=== PATIENT | male | born 1950 | race Caucasian/White ===

== ENCOUNTER 2016-07-08 10:08 | Inpatient (IN) | payer MEDICARE, OTHER ==
[~2016-07-08] VITALS: Ht 167.6 cm; Wt 88.6 kg
[~2016-07-08 10:08] MED LIST: /MOXI40TA OR; ALBU17IN2 INH; AMBIEN PO; ASTHMANEX INH; LEVITRA PO; LISIPOW PO; METFORMIN PO; OMEPPOW18 PO; PRED10TA2 OR; PRED20TA OR; SIMVASTIN PO; TERAZOSIN PO; VENTAER INH; VICODINES TAB OR; [UNRECOGNIZED DRUG - OTHER] INH; [UNRECOGNIZED DRUG - OTHER] PO
[2016-07-08] MEDS ORDERED: VITA100067 PO (10:47)
[2016-07-08] MEDS ORDERED: SPIR1CAP INH (10:47)
[2016-07-08] MEDS ORDERED: BRIM1OPD OU (10:47)
[2016-07-08] MEDS ORDERED: AMBI10TA PO (10:47)
[2016-07-08] MEDS ORDERED: ASPI325T PO (10:47)
[2016-07-08] MEDS ORDERED: GLIP10TA6 PO (10:47)
[2016-07-08] MEDS ORDERED: MOME50SP2 (10:47)
[2016-07-08] MEDS ORDERED: HYDR25TAB PO (10:47)
[2016-07-08] MEDS ORDERED: BUDE180INH INH (10:47)
[2016-07-08] MEDS ORDERED: GASTROGRAFIN SOLUTION 30ML (Q9963) As Ordered ONE (12:18)
--- NOTE | 2016-07-08 12:33 | REP ---
Chest two views HISTORY: Abdominal pain Comparison: 05/21/2010 The lungs are clear. The heart is normal in size. The pulmonary vasculature is normal in appearance. The bony structure is intact. IMPRESSION: No acute disease. Signed by Chester Sanders MD 07/08/2016 12:25 P
[2016-07-08 12:35] LABS: BASO % 0.3 % (0.0-1.0); EOS # 0.1 K/mm3 (0.0-0.50); EOS % 1.4 % (0.0-3.0); LARGE UNSTAINED CELL # 0.1 K/mm3 (0.0-0.4); LARGE UNSTAINED CELL % 0.7 % (0.0-4.0); LYMPH # 1.1 K/mm3 (1.5-4.5); LYMPH % 10.2 % (24.0-44.0); MEAN CORPUSCULAR HEMOGLOBIN 31.5 pg (27.0-33.0); MEAN CORPUSCULAR HGB CONC 33.9 g/dl (32.0-36.5); MEAN CORPUSCULAR VOLUME 92.9 fl (80.0-96.0); MONO # 0.5 K/mm3 (0.0-0.8); MONO % 4.9 % (0.0-5.0); NEUTROPHILS # 8.4 K/mm3 (1.8-7.7); NEUTROPHILS % 82.5 % (36.0-66.0); PLATELET COUNT, AUTOMATED 285 k/mm3 (150-450); RED CELL DISTRIBUTION WIDTH 12.6 % (11.5-14.5); WHITE BLOOD COUNT 10.2 K/mm3 (4.0-10.0)
[2016-07-08 12:55] LABS: ALBUMIN 3.7 GM/DL (3.2-5.2); ALBUMIN/GLOBULIN RATIO 0.93 (1.00-1.93); ALKALINE PHOSPHATASE 79 U/L (45-117); ALT/SGPT 19 U/L (12-78); AMYLASE 22 U/L (25-115); ANION GAP 8 MEQ/L (8-16); AST/SGOT 8 U/L (15-37); BILIRUBIN,DIRECT < 0.1 MG/DL (0.0-0.2); BILIRUBIN,TOTAL 0.4 MG/DL (0.2-1.0); BLOOD UREA NITROGEN 14 MG/DL (7-18); CALCIUM LEVEL 9.2 MG/DL (8.8-10.2); CARBON DIOXIDE LEVEL 27 MEQ/L (21-32); CHLORIDE LEVEL 104 MEQ/L (98-107); CREATININE FOR GFR 0.93 MG/DL (0.70-1.30); GLOMERULAR FILTRATION RATE > 60.0 (>49); GLUCOSE, FASTING 145 MG/DL (80-110); POTASSIUM SERUM 4.1 MEQ/L (3.5-5.1); SODIUM LEVEL 139 MEQ/L (136-145); TOTAL PROTEIN 7.7 GM/DL (6.4-8.2)
[2016-07-08] MEDS ORDERED: ISOVUE-370 76% 100ML VIAL (Q9967) As Ordered ONE (13:50)
--- NOTE | 2016-07-08 14:44 | REP ---
CT ABDOMEN AND PELVIS WITH CONTRAST: TECHNIQUE: Axial contrast enhanced images from the lung bases to the pubic symphysis using 100 mL Isovue 370 intravenous contrast material with multiplanar reformations. COMPARISON: 12/08/2010 The visualized lung bases demonstrate chronic fibrotic changes. The liver, spleen, adrenals, pancreas and kidneys appear unremarkable. There are mild to moderate atherosclerotic calcifications of the abdominal aorta without aneurysm. There is no adenopathy. There is no free air. There is a long segment of apparent thickening of the sigmoid colon, extending for a length of about 7 cm. Surrounding streaky densities are seen in the pericolonic fat and there is mild free fluid in the pelvis. Urinary bladder is not well distended and not well evaluated. IMPRESSION: Segmental thickening of the sigmoid colon extending for a length of about 7 cm with surrounding streaky densities in the pericolonic fat. There is also mild free fluid in the pelvis. There is dilatation of the more proximal small and large bowel. This appears to represent either neoplastic or inflammatory pathology, causing partial bowel obstruction at this point. No free air. Signed by Ashok Jackson MD 07/09/2016 07:06 P
[2016-07-08] MEDS ORDERED: LISI40TAB PO (15:08)
[2016-07-08] MEDS ORDERED: METF10004 PO (15:08)
[2016-07-08] MEDS ORDERED: SYMB16INH INH (15:08)
[2016-07-08] MEDS ORDERED: OMEP20CA3 PO (15:08)
[2016-07-08] MEDS ORDERED: TERA5CA PO (15:08)
[2016-07-08] MEDS ORDERED: ZOCO80TA PO (15:08)
[2016-07-08] MEDS ORDERED: ARTI99.0 OU (15:08)
[2016-07-08] MEDS ORDERED: ALBU17IN INH (15:08)
[2016-07-08] MEDS ORDERED: KETOROLAC 30 MG/ML VIAL (J1885) IV ONE (15:30)
[2016-07-08] MEDS ORDERED: ALBUTEROL 90 MCG/ACT 8GM HFA INHALER INH PRN (16:00)
[2016-07-08] MEDS ORDERED: GLUCAGON FOR INJ 1 MG VIAL (J1610) SC PRN (16:00)
[2016-07-08] MEDS ORDERED: ACETAMINOPHEN TAB 650MG DOSE (2X325MG) PO PRN (16:00)
[2016-07-08] MEDS ORDERED: GLUCOSE 4 GM CHEW TABLET PO PRN (16:00)
[2016-07-08] MEDS ORDERED: ONDANSETRON 4MG/2ML VIAL (J2405) IV PRN (16:00)
[2016-07-08] MEDS ORDERED: DEXTROSE 50% 50 ML SYRINGE IV PRN (16:00)
[2016-07-08 17:00] VITALS: BP 126/79
[2016-07-08] MEDS: LR 1,000 ML IV SCH (17:11)
[2016-07-08] MEDS: CIPROFLOXACIN 400 MG in APPROPRIATE DILUENT 1 EA IV SCH (17:12)
[2016-07-08] MEDS: HumaLOG INSULIN (NovoLOG) PER UNIT SC SCH (17:12)
[2016-07-08] MEDS: SYMBICORT 160/4.5MCG INHALER 6GM INH SCH (19:42)
[2016-07-08] MEDS ORDERED: GOLYTELY SOLN 4000 ML BTL PO ONE (20:00)
[2016-07-08] MEDS: metroNIDAZOLE 500 MG in APPROPRIATE DILUENT 1 EA IV SCH (20:08)
[2016-07-08] MEDS: POLYVINYL ALCOHOL OPHTH SOLN 15 ML(LIQUITEARS) OU SCH (20:08)
[2016-07-08] MEDS: BRIMONIDINE 0.1% OPHTH SOLN 5 ML OU SCH (20:08)
[2016-07-08 22:00] VITALS: BP 121/77
[2016-07-09] VITALS (7 sets, daily range): BP systolic 122–153; BP diastolic 71–85
[2016-07-09] MEDS: NORCO, ANEXSIA 5/325MG TABLET (HYDROcodone/ACETAMINOPHEN) PO PRN ×3 (00:46→14:05)
[2016-07-09] MEDS: LR 1,000 ML IV SCH ×3 (03:00→12:52)
[2016-07-09] MEDS: metroNIDAZOLE 500 MG in APPROPRIATE DILUENT 1 EA IV SCH ×3 (03:16→19:56)
[2016-07-09] MEDS: CIPROFLOXACIN 400 MG in APPROPRIATE DILUENT 1 EA IV SCH ×2 (05:28→18:10)
[2016-07-09 06:29] LABS: ANION GAP 6 MEQ/L (8-16); BLOOD UREA NITROGEN 12 MG/DL (7-18); CALCIUM LEVEL 8.5 MG/DL (8.8-10.2); CARBON DIOXIDE LEVEL 26 MEQ/L (21-32); CHLORIDE LEVEL 105 MEQ/L (98-107); CREATININE FOR GFR 0.85 MG/DL (0.70-1.30); GLOMERULAR FILTRATION RATE > 60.0 (>49); GLUCOSE, FASTING 148 MG/DL (80-110); SODIUM LEVEL 137 MEQ/L (136-145)
[2016-07-09 06:40] LABS: ADD MANUAL DIFFER YES; MEAN CORPUSCULAR HGB CONC 33.6 g/dl (32.0-36.5); MEAN CORPUSCULAR VOLUME 92.2 fl (80.0-96.0); PLATELET COUNT, AUTOMATED 258 k/mm3 (150-450); RED CELL DISTRIBUTION WIDTH 12.7 % (11.5-14.5); WHITE BLOOD COUNT 13.2 K/mm3 (4.0-10.0)
[2016-07-09] MEDS ORDERED: GOLYTELY SOLN 4000 ML BTL PO ONE (07:00)
[2016-07-09 07:18] LABS: BANDS 2 % (< 11); EOSINOPHILS 1 % (0-5)
[2016-07-09] MEDS: PANTOPRAZOLE 40MG INJ (PROTONIX) (C9113) IV SCH (07:58)
[2016-07-09] MEDS: POLYVINYL ALCOHOL OPHTH SOLN 15 ML(LIQUITEARS) OU SCH ×3 (07:58→19:56)
[2016-07-09] MEDS: ENOXAPARIN 40 MG/0.4 ML SYRINGE (J1650) SC SCH (07:59)
[2016-07-09] MEDS: hydroCHLOROthiazide 25 MG TAB PO SCH (08:00)
[2016-07-09] MEDS: TERAZOSIN 5 MG CAP PO SCH (08:00)
[2016-07-09] MEDS: LISINOPRIL 40 MG TAB PO SCH (08:00)
[2016-07-09] MEDS: HumaLOG INSULIN (NovoLOG) PER UNIT SC SCH ×3 (08:00→17:30)
--- NOTE | 2016-07-09 08:25 | HPEPDOC ---
General Surgery H&P Date of Admission July 08, 2016 at 15:53 History and Physical CHIEF COMPLAINT: Lower abdominal pain HISTORY OF PRESENT ILLNESS: Patient is seen in the emergency room complaining of 1 month history of crampy lower abdominal pain, changes in appearance of his stools, occasional nausea and vomiting and about a 20 pound weight loss since the start of his symptoms. Patient reports crampy lower left-sided abdominal pain worse with eating, worse prior to having bowel movements. This has been going on for 1 month now. He reports his stools are small pencil thin in appearance and he feels he has to strain a lot more to have bowel movements. He denies any noting any bleeding with bowel movements but notes some mucus coating the stools. He denies fevers or chills. He has had multiple previous colonoscopies to last one was in [id number] [place]. He reports history of polyps that were removed. He denies any significant family history for colorectal malignancy or Crohn's disease. Patient reports increased pain with eating also feeling full with small meals with associated weight loss of about 20 pounds as of this started. ALLERGIES: Please see below. HOME MEDICATIONS: Please see below. PAST MEDICAL HISTORY: 1. COPD 2. Coronary artery disease 3. Diabetes 4. Obstructive sleep apnea 5. Insomnia 6. 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 Benign prostatic hypertrophy PAST SURGICAL HISTORY: Traumatic amputation right arm Multiple colonoscopies last one in 2009 Upper endoscopy in 2009 showing Caceres's esophagus PERSONAL/SOCIAL HISTORY: Reports smoking, denies alcohol use, or recreational drug use. REVIEW OF SYSTEMS: GENERAL: Denies fevers, chills. Reports 20 pound weight loss in 1 month HEENT: Denies blurred vision and double vision. Denies ear symptoms. Denies hoarseness. NECK: Denies any neck pain. CARDIOVASCULAR: Denies chest pain and palpitations. MUSCULOSKELETAL: Denies arthralgias, back pain and thrombophlebitis. SKIN: Denies rash. NEUROLOGIC: Denies headache, stroke and transient ischemic attack. PSYCHIATRIC: Denies anxiety and depression. ENDOCRINE: Denies thyroid disease. HEMATOLOGY/ONCOLOGY: Denies any bleeding or clotting disorder. HEART: Denies any chest pains, palpitations, paroxysmal dyspnea, orthopnea. PULMONARY: Reports history of COPD. [facility] his [facility] with resulting improvement of his breathing. Use to require oxygen at night but no longer with the current medications. GASTROINTESTINAL: Denies rectal bleeding, family history of colon cancer, constipation, diarrhea, dysphagia, heartburn and jaundice. GENITOURINARY: Has history of BPH, denies urinary retention, reports nocturia ENDOCRINE: Denies polydipsia, polyphagia, polyuria, heat or cold intolerance. INFECTIOUS: Denies any recent upper respiratory tract infection, UTI, need for use of antibiotics. NUTRITION: Reports anorexia, feeling full a few bites PHYSICAL EXAMINATION: VITAL SIGNS: Please see below. GENERAL APPEARANCE: Patient seen at bedside, appears comfortable. Awake, alert, oriented. HEENT: Normocephalic, atraumatic. [place] palpebral conjunctivae. Anicteric sclerae. Lips moist. CHEST: No chest wall abnormalities. Normal respiratory motion/effort. NECK: Supple. No thyromegaly. No lymphadenopathies. LUNGS: Lung sounds are clear to auscultation bilaterally. No wheezing appreciated. HEART: No chest wall abnormalities. Heart rate and rhythm are regular with no murmurs. ABDOMEN: [Abdomen is obese, soft, slightly rounded. No hepatosplenomegaly. No umbilical or groin herniations, nondistended. No noticeable rebound or guarding. Mild tenderness on palpation over the suprapubic and left lower quadrant area. No appreciable masses on palpation. No fluctuance. SKIN: Warm, moist. EXTREMITIES: Right arm surgically absent from a traumatic injury. Rest of extremities without edema or deformities. NEUROLOGICAL: Awake, alert, oriented. LABORATORY DATA: Please see below. MICROBIOLOGY: Please see below. IMAGING: CT scan of the abdomen and pelvis Segmental thickening of the sigmoid colon extending for a length of about 7 cm with surrounding streaky densities in the pericolonic fat. There is also mild free fluid in the pelvis. There is dilatation of the more proximal small and large bowel. This appears to represent either neoplastic or inflammatory pathology, causing partial bowel obstruction at this point. No free air. IMPRESSION AND PLAN: 1. Abnormal thickening of the wall of the sigmoid colon with resulting abdominal discomfort, may be partial obstruction at the area. Differentials would include inflammatory process versus malignancy. His last colonoscopy was in 2009. We will schedule him for colonoscopy. We will do a bowel prep tonight. Depending on findings of colonoscopy may need further procedures including surgery during this admission. For the meantime we'll start him on Cipro and metronidazole for possible inflammation, infection as a cause of the swelling. He does not show any signs of systemic infection/sepsis. Clinically is reporting some mild obstructive symptoms but still able to tolerate some oral intake and is intermittently passing flatus and is having bowel movements though this is thinned out. 2. Diabetes while nothing by mouth we will continue him on sliding scale pill resume medications soon as he is able to tolerate diet 3. Coronary artery disease Vital Signs Vital Signs Date Time Temp Pulse Resp B/P (MAP) Pulse Ox O2 Delivery O2 Flow Rate FiO2 07/09/16 06:00 96.7 84 18 153/83 (106) 95 Room Air I&Os I&O- Last 24 Hours up to 6 AM 07/09/16 06:00 Intake Total 4180 ml Output Total 1175 ml Balance 3005 ml Laboratory Data Labs 24H Laboratory Tests 2 07/08/16 12:14: White Blood Count 10.2H, Red Blood Count 4.69, Hemoglobin 14.8, Hematocrit 43.6 , Mean Corpuscular Volume 92.9, Mean Corpuscular Hemoglobin 31.5, Mean Corpuscular Hemoglobin Concent 33.9, Red Cell Distribution Width 12.6, Platelet Count 285, Neutrophils (%) (Auto) 82.5H, Lymphocytes (%) (Auto) 10.2L, Monocytes (%) (Auto) 4.9, Eosinophils (%) (Auto) 1.4, Basophils (%) (Auto) 0.3, Neutrophils # (Auto) 8.4H, Lymphocytes # (Auto) 1.1L, Monocytes # (Auto) 0.5, Eosinophils # (Auto) 0.1, Basophils # (Auto) 0.0, Large Unclassified Cells % 0.7 , Large Unclassified Cells # 0.1, Anion Gap 8, Glomerular Filtration Rate > 60.0 , Calcium Level 9.2, Aspartate Amino Transf (AST/SGOT) 8L, Alanine Aminotransferase (ALT/SGPT) 19, Lactate Dehydrogenase 120, Alkaline Phosphatase 79, Total Bilirubin 0.4, Direct Bilirubin < 0.1, Total Protein 7.7, Albumin 3.7 , Albumin/Globulin Ratio 0.93L, Amylase Level 22L, Lipase 101 07/08/16 14:07: Urine Appearance CLEAR, Urine Color YELLOW, Urine pH 5.0, Urine Specific [place] 1.015, Urine Protein NEGATIVE, Urine Glucose (UA) NEGATIVE, Urine Ketones NEGATIVE, Urine Urobilinogen 0.2, Urine Bilirubin NEGATIVE, Urine Leukocyte Esterase NEGATIVE, Urine Blood NEGATIVE, Urine Nitrite NEGATIVE, Urine WBC (Auto) 0, Urine RBC (Auto) 2, Urine Hyaline Casts (Auto) 0, Urine Bacteria (Auto) NEGATIVE, Urine Squamous Epithelial Cells 0, Urine Mucus (Auto) SMALL, Urine Sperm (Auto) 07/08/16 17:01: Bedside Glucose (Misc Panel) 128H 07/08/16 21:13: Bedside Glucose (Misc Panel) 101 07/09/16 06:06: Neutrophils 88H, Band Neutrophils 2, Lymphocytes (Manual) 4L, Monocytes (Manual ) 1, Eosinophils (Manual) 1, Atypical Lymphocytes 4, Platelet Estimate NORMAL, Red Blood Cell Morphology NORMAL, Anion Gap 6L, Glomerular Filtration Rate > 60.0, Blood Urea Nitrogen 12, Creatinine 0.85, Sodium Level 137, Potassium Level 4.0, Chloride Level 105, Carbon Dioxide Level 26, Calcium Level 8.5L CBC/BMP Laboratory Tests 07/08/16 12:14 Red Blood Count 4.69, Mean Corpuscular Volume 92.9, Mean Corpuscular Hemoglobin 31.5, Mean Corpuscular Hemoglobin Concent 33.9, Red Cell Distribution Width 12.6 , Neutrophils (%) (Auto) 82.5 H, Lymphocytes (%) (Auto) 10.2 L, Monocytes (%) ( Auto) 4.9, Eosinophils (%) (Auto) 1.4, Basophils (%) (Auto) 0.3, Neutrophils # ( Auto) 8.4 H, Lymphocytes # (Auto) 1.1 L, Monocytes # (Auto) 0.5, Eosinophils # ( Auto) 0.1, Basophils # (Auto) 0.0 07/09/16 06:06 Red Blood Count 4.33, Mean Corpuscular Volume 92.2, Mean Corpuscular Hemoglobin 31.0, Mean Corpuscular Hemoglobin Concent 33.6, Red Cell Distribution Width 12.7 , Calcium Level 8.5 L Home Medications Scheduled (Mometasone Furoate) 50 Mcg/Act Spr, 220 MCG NA QHS, (Reported) Artificial Tears (Artificial Tears) 1.4 % [place], 1 DROP OU TID, (Reported) Aspirin (Aspirin) 325 Mg Tab, 325 MG PO DAILY, (Reported) Brimonidine Tartrate 0.1% (Alphagan P) 100 Drop/5 Ml Soln, 1 DROP OU TID, ( Reported) Budesonide/Formoterol (Symbicort 160-4.5 Mcg/Act) 60 Puff/Inhaler Aers, 2 PUFF INH BID, (Reported) Glipizide (Glipizide) 10 Mg Tab, 10 MG PO BID, (Reported) Hydrochlorothiazide (Hydrochlorothiazide) 25 Mg Tab, 25 MG PO DAILY, (Reported) Lisinopril (Lisinopril) 40 Mg Tab, 40 MG PO DAILY, (Reported) Metformin Hydrochloride (Metformin HCl) 1,000 Mg Tab, 1,500 MG PO BID, (Reported ) Omeprazole (Omeprazole) 20 Mg Cap, 20 MG PO BID, (Reported) Simvastatin - High Dose (Zocor) 80 Mg Tab, 80 MG PO DAILY, (Reported) Terazosin HCl (Terazosin HCl) 5 Mg Cap, 5 MG PO DAILY, (Reported) Tiotropium [place] Monohydrate (Spiriva Handihaler) 18 Mcg Cap, 1 INHALATION INH DAILY, (Reported) Vitamin D (Vitamin D) 1,000 Unit Cap, 1,000 UNIT PO DAILY, (Reported) Zolpidem Tartrate (Ambien) 10 Mg Tab, 10 MG PO QHS, (Reported) Scheduled PRN Albuterol Sulfate (Ventolin Hfa) 200 Puff/8 Gm Aers, 2 PUFF INH Q6H PRN for SHORTNESS OF BREATH, (Reported) Allergies Coded Allergies: No Known Drug Allergy (Verified Allergy, Unknown, 05/15/12) Amitriptyline (Unverified Adverse Reaction, Unknown, seizures, 07/08/16) CESAR LUJAN MD Jul 09, 2016 08:25
[2016-07-09] MEDS: TIOTROPIUM INHALER/CAPSULE (SPIRIVA) INH SCH (08:41)
[2016-07-09] MEDS: SYMBICORT 160/4.5MCG INHALER 6GM INH SCH ×2 (08:41→19:53)
[2016-07-09] MEDS: BRIMONIDINE 0.1% OPHTH SOLN 5 ML OU SCH ×3 (08:49→19:56)
[2016-07-09] MEDS ORDERED: MIDAZOLAM INJ 2 MG/2 ML VIAL (J2250) As Ordered ONE (16:33)
[2016-07-09] MEDS ORDERED: fentaNYL 100 MCG/2 ML INJECTION (J3010) As Ordered ONE (16:34)
--- NOTE | 2016-07-09 17:11 | ROOR ---
Patient Name: Andrews Barry Procedure Date: 07/09/2016 4:34 PM Date of : 1950 Age: 66 Room: [facility] Gender: Male Note Status: Finalized Procedure: Colonoscopy Indications: Abdominal pain in the left lower quadrant, Lower abdominal pain, Abnormal CT of the GI tract, Change in bowel habits, Weight loss Providers: Jonathan Mosher MD Referring MD: [facility], [facility], Admin. Requesting Provider: Medicines: Fentanyl 75 micrograms IV, Midazolam 4 mg IV Complications: No immediate complications. Procedure: Pre-Anesthesia Assessment: - Prior to the procedure, a History and Physical was performed, and patient medications and allergies were reviewed. The patient is competent. The risks and benefits of the procedure and the sedation options and risks were discussed with the patient. All questions were answered and informed consent was obtained. Patient identification and proposed procedure were verified by the physician and the nurse in the endoscopy suite. Mental Status Examination: alert and oriented. Airway Examination: normal oropharyngeal airway and neck mobility. Respiratory Examination: clear to auscultation. CV Examination: normal. Prophylactic Antibiotics: The patient does not require prophylactic antibiotics. Prior Anticoagulants: The patient has taken aspirin, last dose was 1 day prior to procedure. ASA Grade Assessment: III - A patient with severe systemic disease. After reviewing the risks and benefits, the patient was deemed in satisfactory condition to undergo the procedure. The anesthesia plan was to use moderate sedation / analgesia (conscious sedation). Immediately prior to administration of medications, the patient was re-assessed for adequacy to receive sedatives. The heart rate, respiratory rate, oxygen saturations, blood pressure, adequacy of pulmonary ventilation, and response to care were monitored throughout the procedure. The physical status of the patient was re-assessed after the procedure. The Colonoscope was introduced through the anus and advanced to the hepatic flexure. The colonoscopy was technically difficult and complex due to a partially obstructing mass, poor bowel prep with stool present and the patient's discomfort during the procedure. The patient tolerated the procedure fairly well. The quality of the bowel preparation was fair. Findings: The perianal and digital rectal examinations were normal. A frond-like/villous and polypoid partially obstructing large mass was found in the recto-sigmoid colon. The mass was partially circumferential (involving one-third of the lumen circumference). The mass measured ten cm in length. [Diameter]. No bleeding was present. This was biopsied with a cold forceps for histology. Estimated blood loss was minimal. A few medium-mouthed diverticula were found in the sigmoid colon and descending colon. There was no evidence of diverticular bleeding. The exam was otherwise without abnormality. No additional abnormalities were found on retroflexion. Impression: - Preparation of the colon was fair. - Rule out malignancy, partially obstructing tumor in the recto-sigmoid colon. Biopsied. - Mild diverticulosis in the sigmoid colon and in the descending colon. There was no evidence of diverticular bleeding. - The examination was otherwise normal. Recommendation: - [facility]. - Await pathology results. Jonathan Mosher MD Jonathan Mosher MD 07/09/2016 5:11:25 PM This report has been signed electronically. Number of Addenda: 0 Note Initiated On: 07/09/2016 4:34 PM Estimated Blood Loss: Estimated blood loss was minimal.
[2016-07-10] MEDS: NORCO, ANEXSIA 5/325MG TABLET (HYDROcodone/ACETAMINOPHEN) PO PRN ×5 (00:33→20:39)
[2016-07-10] MEDS: LR 1,000 ML IV SCH ×3 (00:33→17:26)
[2016-07-10] MEDS: metroNIDAZOLE 500 MG in APPROPRIATE DILUENT 1 EA IV SCH ×3 (03:59→20:39)
[2016-07-10] MEDS: CIPROFLOXACIN 400 MG in APPROPRIATE DILUENT 1 EA IV SCH ×2 (05:13→17:25)
[2016-07-10 06:00] VITALS: BP 114/66
[2016-07-10] MEDS: TIOTROPIUM INHALER/CAPSULE (SPIRIVA) INH SCH (07:20)
[2016-07-10] MEDS: SYMBICORT 160/4.5MCG INHALER 6GM INH SCH ×2 (07:20→19:51)
[2016-07-10] MEDS: PANTOPRAZOLE 40MG INJ (PROTONIX) (C9113) IV SCH (08:09)
[2016-07-10] MEDS: hydroCHLOROthiazide 25 MG TAB PO SCH (08:10)
[2016-07-10] MEDS: ENOXAPARIN 40 MG/0.4 ML SYRINGE (J1650) SC SCH (08:10)
[2016-07-10] MEDS: TERAZOSIN 5 MG CAP PO SCH (08:10)
[2016-07-10] MEDS: LISINOPRIL 40 MG TAB PO SCH (08:10)
[2016-07-10] MEDS: HumaLOG INSULIN (NovoLOG) PER UNIT SC SCH ×3 (08:11→17:34)
[2016-07-10] MEDS: BRIMONIDINE 0.1% OPHTH SOLN 5 ML OU SCH ×3 (08:12→20:40)
[2016-07-10] MEDS: POLYVINYL ALCOHOL OPHTH SOLN 15 ML(LIQUITEARS) OU SCH ×3 (08:12→20:40)
[2016-07-10 14:00] VITALS: BP 124/70
--- NOTE | 2016-07-10 14:14 | IPNPDOC ---
Subjective General Date/Time Seen The patient was seen on 07/10/16 at 14:03. Subject Chief Complaint/History The patient is a 66-year-old male admitted with a reason for visit of Sigmoid Thickening. Colonoscopy reveals partially obstructing large polypoid mass. Biopsy results pending. Patient reports abdominal discomfort, cramping as well as nausea. Not passing flatus since colonoscopy Current Medications Current Medications Current Medications Acetaminophen (Tylenol Tab) 650 mg Q4HP PRN PO MILD PAIN or TEMP > 101 Last administered on 07/09/16 18:10; Start 07/08/16 at 16:00; Stop 08/07/16 at 15:59 Acetaminophen/ Hydrocodone Bitart (Ber[place], Anexsia 5/325) 1 tab Q4HP PRN PO MODERATE PAIN (PS 5-7) Last administered on 07/09/16 00:46; Start 07/08/16 at 16 :00; Stop 07/15/16 at 15:59 Acetaminophen/ Hydrocodone Bitart (Berne, Anexsia 5/325) 2 tab Q6HP PRN PO SEVERE PAIN (PS 8-10) Last administered on 07/10/16 08:11; Start 07/08/16 at 16: 00; Stop 07/15/16 at 15:59 Albuterol Sulfate (Proventil, Ventolin Hfa) 2 puff Q6HP PRN INH sob; Start at 16:00; Stop 08/07/16 at 15:59 Artificial Tears ([place] Tears) 1 drop TID OU Last administered on 07/10/16 08:12 ; Start 07/08/16 at 21:00; Stop 08/07/16 at 20:59 Brimonidine Tartrate (Alphagan P 0.1%) 1 drop TID OU Last administered on 08:12; Start 07/08/16 at 21:00; Stop 08/07/16 at 20:59 Budesonide/ Formoterol Fumarate (Symbicort 160/ 4.5mcg) 2 puff BID INH Last administered on 07/10/16 07:20; Start 07/08/16 at 21:00; Stop 08/07/16 at 20:59 Ciprofloxacin 400 mg/IV Miscellaneous Supplies 200 ml @ 200 mls/hr Q12H IV Last administered on 07/10/16 05:13; Start 07/08/16 at 18:00; Stop 07/15/16 at 17 :59 Dextrose (Dextrose 50%) 25 ml ASDIRECTED PRN IV SEE LABEL COMMENTS; Start 07/08 at 16:00; Stop 08/07/16 at 15:59 Enoxaparin Sodium (Lovenox) 40 mg DAILY SC Last administered on 07/10/16 08:10 ; Start 07/09/16 at 09:00; Stop 07/14/16 at 08:59 Glucagon (Glucagon) 1 mg ASDIRECTED PRN SC SEE LABEL COMMENTS; Start 07/08/16 at 16:00; Stop 08/07/16 at 15:59 Glucose (Glucose) 16 GM ASDIRECTED PRN PO SEE LABEL COMMENTS; Start 07/08/16 at 16:00; Stop 08/07/16 at 15:59 Home Med (Med Rec Complete!) ASDIRECTED XX ; Start 07/08/16 at 15:15; Stop at 15:15; Status DC Hydrochlorothiazide (Hydrodiuril) 25 mg DAILY PO Last administered on 07/10/16 08:10; Start 07/09/16 at 09:00; Stop 08/08/16 at 08:59 Insulin Human Lispro (HumaLOG INSULIN) SEE PROTOCOL TABLE AC SC Last administered on 07/10/16 12:01; Start 07/08/16 at 17:30; Stop 08/07/16 at 17:29 Lactated Ringer's 1,000 ml @ 125 mls/hr Q8H IV Last administered on 07/10/16 08:18; Start 07/08/16 at 15:53; Stop 08/07/16 at 15:52 Lisinopril (Prinivil) 40 mg DAILY PO Last administered on 07/10/16 08:10; Start 07/09/16 at 09:00; Stop 08/08/16 at 08:59 Metronidazole 500 mg/IV Miscellaneous Supplies 100 ml @ 100 mls/hr Q8H IV Last administered on 07/10/16 12:01; Start 07/08/16 at 20:00; Stop 07/15/16 at 19 :59 Ondansetron HCl (ZOFRAN INJection) 4 mg Q6HP PRN IV NAUSEA OR VOMITING; Start 07/08/16 at 16:00; Stop 08/07/16 at 15:59 Pantoprazole Sodium (Protonix) 40 mg DAILY IV Last administered on 07/10/16 08: 09; Start 07/09/16 at 09:00; Stop 08/08/16 at 08:59 Terazosin HCl (Hytrin) 5 mg DAILY PO Last administered on 07/10/16 08:10; Start 07/09/16 at 09:00; Stop 08/08/16 at 08:59 Tiotropium [place] (Spiriva Handihaler) 1 inhalation DAILY@08 INH Last administered on 07/10/16 07:20; Start 07/09/16 at 08:00; Stop 08/08/16 at 07:59 Allergies Coded Allergies: No Known Drug Allergy (Verified Allergy, Unknown, 05/15/12) Amitriptyline (Unverified Adverse Reaction, Unknown, seizures, 07/08/16) Objective Physical Examination Examination GENERAL APPEARANCE:Patient seen, laying in bed, awake, alert, and oriented. Mildly uncomfortable from abdominal distention. SKIN: [Warm and moist]. HEENT: [Normocephalic, atraumatic. [place] palpebral conjunctiva, anicteric sclerae. Lips and mucosa appear moist]. NECK: [Supple, no thyromegaly. No obvious jugular venous distention]. LUNGS: [Clear to auscultation bilaterally. No wheezing appreciated]. HEART: [No chest wall abnormalities. Regular rate and rhythm with no murmurs appreciated]. ABDOMEN: Abdomen is tensely distended, soft, tympanitic, nontender on palpation. No grimacing with palpation. No rebound tenderness. No masses appreciated]. EXTREMITIES: Right arm surgically absent, no extremity edema Vital Signs Vital Signs Date Time Temp Pulse Resp B/P (MAP) Pulse Ox O2 Delivery O2 Flow Rate FiO2 07/10/16 08:41 20 07/10/16 08:15 Room Air 07/10/16 08:10 141/86 07/10/16 06:00 97.4 84 90 07/09/16 16:54 2 I&Os I&O- Last 24 Hours up to 6 AM 07/10/16 05:59 Intake Total 3675 ml Output Total 1225 ml Balance 2450 ml Laboratory Data Labs 24H Laboratory Tests 2 07/09/16 17:44: Bedside Glucose (Misc Panel) 141H 07/09/16 20:48: Bedside Glucose (Misc Panel) 152H 07/10/16 07:28: Bedside Glucose (Misc Panel) 184H 07/10/16 11:25: Bedside Glucose (Misc Panel) 140H Impression partial sigmoid colon obstruction froma rectosigmoid polypoid mass path pending keep him npo for now I instructed patient to ambulate to hallways If his abdomen continues to be distended, vomiting may need ngt He is tentatively scheduled for lap LAR for wednesday, I asked the hospitalist service to help optimize him for the surgery. Plan / VTE VTE Prophylaxis Ordered?: Yes CESAR LUJAN MD Jul 10, 2016 14:14
--- NOTE | 2016-07-10 14:52 | CR.PDOC ---
[facility] Consultation Consultation CONSULTATION REPORT FOR: Dr Caldera REASON FOR CONSULTATION: Preoperative medical optimization DATE OF VISIT: 07/10/16 ATTENDING: Dr. Cool PCP: [facility]. HPI: 66year oldM with a past medical history significant for COPD, LOUIS, HTN, CAD who was admitted 07/08 for sigmoid thickening. Colonoscopy revealed partially obstructing mass, biopsy pathology pending. No acute medical complaints today. Denies any fevers, chills, weakness, fatigue, Headache, Chest Pain, Shortness of breath, cough, palpitations, abdominal pain, N/V/D or changes in bowel or bladder habits. Hospitalist consultation requested for medical optimization prior to colon resection planned Wednesday. PMHx: COPD LOUIS/CPAP CAD HTN DM BPH hiatal hernia/Sommers's esophagus insomnia depression HLD phantom limb PSHX: EGD 2010 sommers's esophagus Colonoscopy 2009 traumatic loss Rt arm SOCHX: Resides in: [facility] Marital Status: x 35 years Kids: 4- estranged. Employment: retired otr refrigerated cdl truck driver Tobacco use: 2 ppd ETOH: 6 beers/month Illicit Drugs: Denies Advanced directives: denies FAMHX: Mother: suicide Father: gastric Ca Siblings: 1 sister Alive, estranged. 1 brother Ca Children: Alive, unknown-estranged. ROS: As noted in HPI, otherwise 11pt ROS of systems reviewed and remarkable only for current abdominal pain/distention. PE: GEN: 66yoM, appears stated age. Well-nourished, well developed. No acute distress. Alert and oriented x 3. Pleasant, interactive. HEENT: Normocephalic, atraumatic. Pupils are equal, round, and reactive to light. Extraocular movements are intact. No nystagmus appreciated. Sclera are nonicteric. Conjunctiva without injection. Nose midline. Nasal turbinates without bogginess. No facial asymmetry. Moist mucous membranes. Dentition fair. Pharynx pink and moist, no cobblestoning. Neck supple, trachea midline. No lymphadenopathy or thyromegaly appreciated. CHEST: Regular rate and rhythm, +S1, +S2 LUNGS: Clear to auscultation bilaterally. No wheezes, rales, or rhonchi. Breathing appears symmetric and easy. Patient is speaking in full sentences. No accessory muscle use. ABD: Distended, Round, soft, TTP LLQ. +Bowel sounds present. No rebound or guarding. No costovertebral angle tenderness. EXT: Pulses 2+ bilaterally dorsalis pedis and radial. No lower extremity edema appreciated. SKIN: [place], dry, warm. Capillary refill <2sec. No rashes. NEURO: Alert and oriented x 3. Cranial nerves III-XII are intact. No focal deficits appreciated. A&P: 66year oldM with a past medical history significant for COPD, LOUIS, HTN, CAD who was admitted 07/08 for sigmoid thickening. Colonoscopy revealed partially obstructing mass, biopsy pathology pending. 1. Sigmoid thickening/Partially obstructing mass. Pathology pending. Mgmt as per Dr Caldera. IVF/IV Cipro/Flagyl. Colon resection planned as per Dr Caldera. Pt is discussed with Dr Estrada. Will be followed by Dr Cool. 2. Preoperative clearance/medical optimization. Pt lives alone and does ADLs on his own. He does light work on his own, groceries, walk short distance. As per Revised Cardiac risk criteria, Pt would be moderate risk(6.6). Pt appears to be medically optimized for surgical procedure at this time. EKG is requested. Statin (Zocor 80mg) continued. Pt is known to have LOUIS- Pt is requested to use home CPAP. ASA is on hold. 3. CAD. ASA on hold. Cont statin. 4. HTN. HCTZ/Lisinopril. BP controlled. 5. COPD. Symbicort/Albuterol prn. 6. LOUIS/CPAP. Advised pt to uses CPAP from home. 7. DM. SSI. (Metformin/glipizide on hold) 8. BPH. Hytrin. 9. Hiatal hernia/sommers's esophagus. Cont PPI. 10. HLD. Cont Zocor 80 mg daily. 11. Glaucoma. Alphagan eye gtt. 12. Insomnia. Zolpidem on hold. DVT prophylaxis. Lovenox. Thank you for your consultation. We will continue to follow along with you. Vital Signs/I&O Vital Signs Date Time Temp Pulse Resp B/P (MAP) Pulse Ox O2 Delivery O2 Flow Rate FiO2 07/10/16 14:21 20 07/10/16 08:15 Room Air 07/10/16 08:10 141/86 07/10/16 06:00 97.4 84 90 07/09/16 16:54 2 I&O- Last 24 Hours up to 6 AM 07/10/16 05:59 Intake Total 3675 ml Output Total 1225 ml Balance 2450 ml Laboratory Data Labs 24H Laboratory Tests 2 07/09/16 17:44: Bedside Glucose (Misc Panel) 141H 07/09/16 20:48: Bedside Glucose (Misc Panel) 152H 07/10/16 07:28: Bedside Glucose (Misc Panel) 184H 07/10/16 11:25: Bedside Glucose (Misc Panel) 140H Allergies Coded Allergies: No Known Drug Allergy (Verified Allergy, Unknown, 05/15/12) Amitriptyline (Unverified Adverse Reaction, Unknown, seizures, 07/08/16) Home Medications Scheduled (Mometasone Furoate) 50 Mcg/Act Spr, 220 MCG NA QHS, (Reported) Artificial Tears (Artificial Tears) 1.4 % Guera, 1 DROP OU TID, (Reported) Aspirin (Aspirin) 325 Mg Tab, 325 MG PO DAILY, (Reported) Brimonidine Tartrate 0.1% (Alphagan P) 100 Drop/5 Ml Soln, 1 DROP OU TID, ( Reported) Budesonide/Formoterol (Symbicort 160-4.5 Mcg/Act) 60 Puff/Inhaler Aers, 2 PUFF INH BID, (Reported) Glipizide (Glipizide) 10 Mg Tab, 10 MG PO BID, (Reported) Hydrochlorothiazide (Hydrochlorothiazide) 25 Mg Tab, 25 MG PO DAILY, (Reported) Lisinopril (Lisinopril) 40 Mg Tab, 40 MG PO DAILY, (Reported) Metformin Hydrochloride (Metformin HCl) 1,000 Mg Tab, 1,500 MG PO BID, (Reported ) Omeprazole (Omeprazole) 20 Mg Cap, 20 MG PO BID, (Reported) Simvastatin - High Dose (Zocor) 80 Mg Tab, 80 MG PO DAILY, (Reported) Terazosin HCl (Terazosin HCl) 5 Mg Cap, 5 MG PO DAILY, (Reported) Tiotropium [place] Monohydrate (Spiriva Handihaler) 18 Mcg Cap, 1 INHALATION INH DAILY, (Reported) Vitamin D (Vitamin D) 1,000 Unit Cap, 1,000 UNIT PO DAILY, (Reported) Zolpidem Tartrate (Ambien) 10 Mg Tab, 10 MG PO QHS, (Reported) Scheduled PRN Albuterol Sulfate (Ventolin Hfa) 200 Puff/8 Gm Aers, 2 PUFF INH Q6H PRN for SHORTNESS OF BREATH, (Reported) Halina Schuler Jul 10, 2016 14:52
[2016-07-10] MEDS: SIMVASTATIN 40 MG TAB PO SCH (17:30)
[2016-07-10 22:00] VITALS: BP 124/80
[2016-07-11 02:00] VITALS: BP 145/84
[2016-07-11] MEDS: LR 1,000 ML IV SCH ×2 (02:11→08:23)
[2016-07-11] MEDS: NORCO, ANEXSIA 5/325MG TABLET (HYDROcodone/ACETAMINOPHEN) PO PRN ×4 (02:12→22:53)
[2016-07-11] MEDS: metroNIDAZOLE 500 MG in APPROPRIATE DILUENT 1 EA IV SCH ×3 (04:42→20:30)
[2016-07-11 06:00] VITALS: BP 127/79
[2016-07-11] MEDS: CIPROFLOXACIN 400 MG in APPROPRIATE DILUENT 1 EA IV SCH ×2 (06:05→17:45)
[2016-07-11] MEDS: TIOTROPIUM INHALER/CAPSULE (SPIRIVA) INH SCH (07:28)
[2016-07-11] MEDS: SYMBICORT 160/4.5MCG INHALER 6GM INH SCH ×2 (07:28→20:26)
[2016-07-11] MEDS: HumaLOG INSULIN (NovoLOG) PER UNIT SC SCH ×4 (08:18→23:43)
[2016-07-11] MEDS: POLYVINYL ALCOHOL OPHTH SOLN 15 ML(LIQUITEARS) OU SCH ×3 (09:43→20:31)
[2016-07-11] MEDS: PANTOPRAZOLE 40MG INJ (PROTONIX) (C9113) IV SCH (09:44)
[2016-07-11] MEDS: SIMVASTATIN 40 MG TAB PO SCH (09:44)
[2016-07-11] MEDS: LISINOPRIL 40 MG TAB PO SCH (09:44)
[2016-07-11] MEDS: TERAZOSIN 5 MG CAP PO SCH (09:44)
[2016-07-11] MEDS: ENOXAPARIN 40 MG/0.4 ML SYRINGE (J1650) SC SCH (09:45)
[2016-07-11] MEDS: BRIMONIDINE 0.1% OPHTH SOLN 5 ML OU SCH ×3 (09:45→20:31)
--- NOTE | 2016-07-11 12:30 | IPNPDOC ---
Text Note Date of Service The patient was seen on 07/11/16. NOTE Subjective: No acute changes overnight. Objective: Vitals: (see below) General: No acute distress, laying comfortably in bed. HEENT: Moist mucous membranes. NG tube in place on intermittent suction Neck: No JVD or lymphadenopathy Cardiac: RRR, No murmurs Pulm: Clear to auscultation b/l. No wheezing, rhonchi Abd: Mildly tender. Distended. No rebound/guarding/rigidity. + BS Ext: No edema or cyanosis Labs (see below) Images: CT abd/pelvis 07/08/16 IMPRESSION: Segmental thickening of the sigmoid colon extending for a length of about 7 cm with surrounding streaky densities in the pericolonic fat. There is also mild free fluid in the pelvis. There is dilatation of the more proximal small and large bowel. This appears to represent either neoplastic or inflammatory pathology, causing partial bowel obstruction at this point. No free air. Assessment/Plan 1. Sigmoid thickening, paritally obstructing mas - pathology pending. Management per surg. NGT in place. Surgery planned for Wednesday - Pt has LOUIS on CPAP, COPD, stable. Revised Cardiac Risk criteria - Mod risk 6.6%. Will continue to medically optimize. 2. ??CAD - Pt denies ever having a cardiac cath. ASA was held. On statin 3. HTN controlled. Cont lisinopril. D/c HCTZ. 4. LOUIS on CPAP 5. DM - PO agents on hold. SSI 6. BPH - on hytrin 7. Hiatal hernia/sommers esophagus - on PPI. 8. HLD on statin 9. Glaucoma - cont eye drops DVT prophy: Lovenox VS,Fishbone, I+O VS, Fishbone, I+O Vital Signs Date Time Temp Pulse Resp B/P (MAP) Pulse Ox O2 Delivery O2 Flow Rate FiO2 07/11/16 09:44 132/82 07/11/16 09:00 Room Air 07/11/16 08:53 18 96 07/11/16 06:00 98.0 77 07/09/16 16:54 2 I&O- Last 24 Hours up to 6 AM 07/11/16 06:00 Intake Total 2975 ml Output Total 2875 ml Balance 100 ml JOSE DAWSON MD Jul 11, 2016 12:30
[2016-07-11 14:00] VITALS: BP 143/87
--- NOTE | 2016-07-11 14:57 | REP ---
ABDOMEN, FLAT PLATE KUB, TWO VIEWS: HISTORY: Colon obstruction. COMPARISON: CT 07/08/2016. There are multiple dilated loops of small intestine. There is dilatation of the colon. No air is seen in the distal sigmoid colon and rectum. There are no air-fluid levels. There is no pneumoperitoneum. IMPRESSION: Findings consistent with distal colon obstruction. Repeat examination is recommended for further evaluation. Signed by Chester Sanders MD 07/11/2016 02:58 P
[2016-07-11] MEDS ORDERED: FAT EMULSION IV 20% 500 ML IV SCH (18:00)
[2016-07-11] MEDS: AMINO AC/ELECTROLYTE/DEX/CALC 1,000 ML IV SCH (18:47)
[2016-07-11 19:38] LABS: ALKALINE PHOSPHATASE 63 U/L (45-117); ALT/SGPT 27 U/L (12-78); ANION GAP 9 MEQ/L (8-16); AST/SGOT 25 U/L (15-37); BILIRUBIN,TOTAL 0.4 MG/DL (0.2-1.0); CALCIUM LEVEL 8.4 MG/DL (8.8-10.2); CARBON DIOXIDE LEVEL 26 MEQ/L (21-32); CHLORIDE LEVEL 102 MEQ/L (98-107); GLUCOSE, FASTING 137 MG/DL (80-110); POTASSIUM SERUM 3.7 MEQ/L (3.5-5.1); SODIUM LEVEL 137 MEQ/L (136-145)
[2016-07-11 20:00] LABS: BLOOD UREA NITROGEN 5 MG/DL (7-18); CREATININE FOR GFR 0.77 MG/DL (0.70-1.30); GLOMERULAR FILTRATION RATE > 60.0 (>49)
[2016-07-11 22:00] VITALS: BP 137/84
[2016-07-12] MEDS: metroNIDAZOLE 500 MG in APPROPRIATE DILUENT 1 EA IV SCH ×3 (04:37→20:00)
[2016-07-12] MEDS: CIPROFLOXACIN 400 MG in APPROPRIATE DILUENT 1 EA IV SCH ×2 (05:52→18:19)
[2016-07-12] MEDS: NORCO, ANEXSIA 5/325MG TABLET (HYDROcodone/ACETAMINOPHEN) PO PRN ×4 (05:52→22:59)
[2016-07-12 06:00] VITALS: BP 139/82
[2016-07-12 06:02] LABS: BASO % 0.3 % (0.0-1.0); EOS # 0.1 K/mm3 (0.0-0.50); EOS % 1.5 % (0.0-3.0); LARGE UNSTAINED CELL # 0.1 K/mm3 (0.0-0.4); LARGE UNSTAINED CELL % 0.9 % (0.0-4.0); LYMPH # 0.7 K/mm3 (1.5-4.5); LYMPH % 7.5 % (24.0-44.0); MEAN CORPUSCULAR HEMOGLOBIN 30.9 pg (27.0-33.0); MEAN CORPUSCULAR HGB CONC 33.6 g/dl (32.0-36.5); MONO # 0.5 K/mm3 (0.0-0.8); MONO % 5.8 % (0.0-5.0); NEUTROPHILS # 6.8 K/mm3 (1.8-7.7); PLATELET COUNT, AUTOMATED 266 k/mm3 (150-450); RED CELL DISTRIBUTION WIDTH 12.8 % (11.5-14.5); WHITE BLOOD COUNT 8.1 K/mm3 (4.0-10.0)
[2016-07-12 06:21] LABS: ALBUMIN 3.1 GM/DL (3.2-5.2); ALBUMIN/GLOBULIN RATIO 0.84 (1.00-1.93); ALKALINE PHOSPHATASE 62 U/L (45-117); ALT/SGPT 38 U/L (12-78); ANION GAP 10 MEQ/L (8-16); AST/SGOT 35 U/L (15-37); BILIRUBIN,TOTAL 0.4 MG/DL (0.2-1.0); BLOOD UREA NITROGEN 7 MG/DL (7-18); CALCIUM LEVEL 8.9 MG/DL (8.8-10.2); CARBON DIOXIDE LEVEL 24 MEQ/L (21-32); CHLORIDE LEVEL 102 MEQ/L (98-107); CREATININE FOR GFR 0.81 MG/DL (0.70-1.30); GLOMERULAR FILTRATION RATE > 60.0 (>49); GLUCOSE, FASTING 159 MG/DL (80-110); POTASSIUM SERUM 3.5 MEQ/L (3.5-5.1); SODIUM LEVEL 136 MEQ/L (136-145); TOTAL PROTEIN 6.8 GM/DL (6.4-8.2)
[2016-07-12] MEDS: HumaLOG INSULIN (NovoLOG) PER UNIT SC SCH ×3 (06:46→18:19)
[2016-07-12] MEDS: TIOTROPIUM INHALER/CAPSULE (SPIRIVA) INH SCH (08:04)
[2016-07-12] MEDS: SYMBICORT 160/4.5MCG INHALER 6GM INH SCH ×2 (08:04→20:02)
[2016-07-12] MEDS: AMINO AC/ELECTROLYTE/DEX/CALC 1,000 ML IV SCH ×2 (08:25→18:19)
[2016-07-12] MEDS: BRIMONIDINE 0.1% OPHTH SOLN 5 ML OU SCH ×3 (09:56→21:00)
[2016-07-12] MEDS: POLYVINYL ALCOHOL OPHTH SOLN 15 ML(LIQUITEARS) OU SCH ×3 (09:56→21:00)
[2016-07-12] MEDS: ENOXAPARIN 40 MG/0.4 ML SYRINGE (J1650) SC SCH (09:57)
[2016-07-12] MEDS: TERAZOSIN 5 MG CAP PO SCH (09:57)
[2016-07-12] MEDS: PANTOPRAZOLE 40MG INJ (PROTONIX) (C9113) IV SCH (09:57)
[2016-07-12] MEDS: LISINOPRIL 40 MG TAB PO SCH (09:57)
--- NOTE | 2016-07-12 13:30 | IPNPDOC ---
Text Note Date of Service The patient was seen on 07/12/16. NOTE Subjective: States abd is less distended, and he had 2 BM after NG tube placed. Objective: Vitals: (see below) General: No acute distress, laying comfortably in bed. HEENT: Moist mucous membranes. NG tube in place on intermittent suction Neck: No JVD or lymphadenopathy Cardiac: RRR, No murmurs Pulm: Clear to auscultation b/l. No wheezing, rhonchi Abd: Mildly tender. Less distended. No rebound/guarding/rigidity. + BS Ext: No edema or cyanosis Labs (see below) Images: CT abd/pelvis 07/08/16 IMPRESSION: Segmental thickening of the sigmoid colon extending for a length of about 7 cm with surrounding streaky densities in the pericolonic fat. There is also mild free fluid in the pelvis. There is dilatation of the more proximal small and large bowel. This appears to represent either neoplastic or inflammatory pathology, causing partial bowel obstruction at this point. No free air. Assessment/Plan 1. Sigmoid thickening, paritally obstructing mas - pathology pending. Management per surg. NGT in place. Surgery planned for Wednesday - Pt has LOUIS on CPAP, COPD, stable. Revised Cardiac Risk criteria - Mod risk 6.6%. Will continue to medically optimize. 2. ??CAD - Pt denies ever having a cardiac cath. ASA was held. On statin 3. HTN controlled. Cont lisinopril. D/c HCTZ. 4. LOUIS on CPAP 5. DM - PO agents on hold. SSI 6. BPH - on hytrin 7. Hiatal hernia/sommers esophagus - on PPI. 8. HLD on statin 9. Glaucoma - cont eye drops DVT prophy: Lovenox VS,Fishbone, I+O VS, Fishbone, I+O Laboratory Tests 07/11/16 19:03 Calcium Level 8.4 L, Aspartate Amino Transf (AST/SGOT) 25, Alanine Aminotransferase (ALT/SGPT) 27, Alkaline Phosphatase 63, Total Bilirubin 0.4, Total Protein 6.0 L, Albumin 3.0 L 07/12/16 05:38 Calcium Level 8.9, Aspartate Amino Transf (AST/SGOT) 35, Alanine Aminotransferase (ALT/SGPT) 38, Alkaline Phosphatase 62, Total Bilirubin 0.4, Total Protein 6.8, Albumin 3.1 L, Red Blood Count 4.43, Mean Corpuscular Volume 92.0, Mean Corpuscular Hemoglobin 30.9, Mean Corpuscular Hemoglobin Concent 33.6 , Red Cell Distribution Width 12.8, Neutrophils (%) (Auto) 84.0 H, Lymphocytes ( %) (Auto) 7.5 L, Monocytes (%) (Auto) 5.8 H, Eosinophils (%) (Auto) 1.5, Basophils (%) (Auto) 0.3, Neutrophils # (Auto) 6.8, Lymphocytes # (Auto) 0.7 L, Monocytes # (Auto) 0.5, Eosinophils # (Auto) 0.1, Basophils # (Auto) 0.0 Vital Signs Date Time Temp Pulse Resp B/P (MAP) Pulse Ox O2 Delivery O2 Flow Rate FiO2 07/12/16 12:36 18 97 Room Air 07/12/16 09:57 140/82 07/12/16 06:00 98.3 80 07/09/16 16:54 2 I&O- Last 24 Hours up to 6 AM 07/12/16 06:00 Intake Total 1325 ml Output Total 2900 ml Balance -1575 ml JOSE DAWSON MD Jul 12, 2016 13:30
[2016-07-12 14:00] VITALS: BP 144/90
--- NOTE | 2016-07-12 16:31 | ECGEPIP ---
Stationary ECG Study [facility] Test Date: 2016-07-10 Pat Name: CASSANDRA GRANGER JR Department: Room: [place] [address] Gender: M Grievance Coordinator: : 1950 Requested By: Halina Schuler Order Number: [id number] Reading MD: Nohelia Acuna Measurements Intervals [place]ipple Rate: 77 P: 68 RI: 163 QRS: 61 QRSD: 88 T: 68 QT: 358 QTc: 407 Interpretive Statements SINUS RHYTHM NO PRIOR Electronically Signed On 07-12-2016 16:30:51 EDT by Nohelia Acuna
[2016-07-12] MEDS ORDERED: FAT EMULSION IV 20% 500 ML IV SCH (18:00)
[2016-07-12 22:00] VITALS: BP 138/84
[2016-07-13] MEDS: HumaLOG INSULIN (NovoLOG) PER UNIT SC SCH ×4 (01:30→18:14)
[2016-07-13] MEDS: metroNIDAZOLE 500 MG in APPROPRIATE DILUENT 1 EA IV SCH ×3 (04:19→20:27)
[2016-07-13] MEDS: NORCO, ANEXSIA 5/325MG TABLET (HYDROcodone/ACETAMINOPHEN) PO PRN ×3 (05:51→18:15)
[2016-07-13] MEDS: CIPROFLOXACIN 400 MG in APPROPRIATE DILUENT 1 EA IV SCH ×2 (05:51→18:15)
[2016-07-13 06:00] VITALS: BP 130/7
[2016-07-13] MEDS: TIOTROPIUM INHALER/CAPSULE (SPIRIVA) INH SCH (07:42)
[2016-07-13] MEDS: SYMBICORT 160/4.5MCG INHALER 6GM INH SCH ×2 (07:43→19:29)
[2016-07-13] MEDS: LISINOPRIL 40 MG TAB PO SCH (07:55)
[2016-07-13] MEDS: AMINO AC/ELECTROLYTE/DEX/CALC 1,000 ML IV SCH (07:55)
[2016-07-13] MEDS: TERAZOSIN 5 MG CAP PO SCH (07:55)
[2016-07-13] MEDS: PANTOPRAZOLE 40MG INJ (PROTONIX) (C9113) IV SCH (07:56)
[2016-07-13] MEDS: POLYVINYL ALCOHOL OPHTH SOLN 15 ML(LIQUITEARS) OU SCH ×3 (07:56→20:27)
[2016-07-13] MEDS: BRIMONIDINE 0.1% OPHTH SOLN 5 ML OU SCH ×3 (07:56→20:27)
[2016-07-13] MEDS: ENOXAPARIN 40 MG/0.4 ML SYRINGE (J1650) SC SCH (07:56)
--- NOTE | 2016-07-13 11:34 | IPNPDOC ---
Text Note Date of Service The patient was seen on 07/13/16. NOTE Subjective: States distension is improving, and he had 2 BM since yesterday. No N/V. Objective: Vitals: (see below) General: No acute distress, laying comfortably in bed. HEENT: Moist mucous membranes. NG tube in place on intermittent suction Neck: No JVD or lymphadenopathy Cardiac: RRR, No murmurs Pulm: Clear to auscultation b/l. No wheezing, rhonchi Abd: Mildly tender. Less distended. No rebound/guarding/rigidity. + BS Ext: No edema or cyanosis Labs (see below) Images: CT abd/pelvis 07/08/16 IMPRESSION: Segmental thickening of the sigmoid colon extending for a length of about 7 cm with surrounding streaky densities in the pericolonic fat. There is also mild free fluid in the pelvis. There is dilatation of the more proximal small and large bowel. This appears to represent either neoplastic or inflammatory pathology, causing partial bowel obstruction at this point. No free air. Assessment/Plan 1. Sigmoid thickening, paritally obstructing mas - pathology pending. Management per surg. NGT in place. Surgery planned for Wednesday - Pt has LOUIS on CPAP, COPD, stable. TPN per surgery. Revised Cardiac Risk criteria - Mod risk 6.6%. Will continue to medically optimize. 2. ??CAD - Pt denies ever having a cardiac cath. ASA was held. On statin. 3. HTN controlled. Cont lisinopril. D/c HCTZ. 4. LOUIS on CPAP 5. DM - PO agents on hold. SSI 6. BPH - on hytrin 7. Hiatal hernia/sommers esophagus - on PPI. 8. HLD on statin 9. Glaucoma - cont eye drops DVT prophy: Lovenox VS,Fishbone, I+O VS, Fishbone, I+O Vital Signs Date Time Temp Pulse Resp B/P (MAP) Pulse Ox O2 Delivery O2 Flow Rate FiO2 07/13/16 09:00 Room Air 07/13/16 07:55 130/76 07/13/16 06:25 16 07/13/16 06:00 98.2 82 91 07/09/16 16:54 2 I&O- Last 24 Hours up to 6 AM 07/13/16 06:00 Intake Total 2405 ml Output Total 2500 ml Balance -95 ml ABED,JOSE MD Jul 13, 2016 11:34
[2016-07-13 14:30] VITALS: BP 128/68
--- NOTE | 2016-07-13 16:53 | REP ---
Procedure: PICC line insertion with Raman-Mary The procedure was performed under the direct supervision of Dr. Luis. The risks and benefits of the procedure were explained to the patient and informed consent was obtained. The left basilic vein was localized using ultrasound guidance. The skin was prepped and draped in a sterile fashion. 2% lidocaine was used as a local anesthetic. Using ultrasound guidance the basilic vein was cannulated and a 0.018 guidewire was inserted and advanced to the SVC using fluoroscopic guidance. The needle was removed and a a 5.5 Malian dilator and peel-away sheath was inserted over the guide wire. A 5.5 Malian dual lumen catheter was cut to length of 45 cm. The dilator was removed and the catheter was inserted over the guide wire with the tip ending in the SVC. The peel-away sheath was removed and the catheter was flushed with heparinized saline as per Hospital protocol. The catheter was affixed to the skin and a sterile dressing was applied. The the patient tolerated the procedure well and there were no immediate complications. 0.2 minutes of fluoro time was utilized for this procedure. Reviewed by CHERELLE Frost 07/13/2016 03:25 PSigned by Edwin Luis MD 07/13/2016 04:44 P
[2016-07-13] MEDS ORDERED: FAT EMULSION IV 20% 500 ML IV SCH (18:00)
[2016-07-13] MEDS ORDERED: AMINO AC/ELECTROLYTE/DEX/CALC 2,000 ML IV SCH (18:00)
--- NOTE | 2016-07-13 21:18 | IPNPDOC ---
Subjective General Date/Time Seen The patient was seen on 07/13/16 at 15:56. Subject Chief Complaint/History The patient is a 66-year-old male admitted with a reason for visit of Sigmoid Thickening. Over the weekend a nasogastric tube was placed as he became very distended after the colonoscopy. He has had a few bowel movements but is only passing small amount of flatus with bowel movements and less so in between the bowel movements. He reports some mild abdominal discomfort at the left lower quadrant area. Current Medications Current Medications Current Medications Acetaminophen (Tylenol Tab) 650 mg Q4HP PRN PO MILD PAIN or TEMP > 101 Last administered on 07/09/16 18:10; Start 07/08/16 at 16:00; Stop 08/07/16 at 15:59 Acetaminophen/ Hydrocodone Bitart ([place], Anexsia 5/325) 1 tab Q4HP PRN PO MODERATE PAIN (PS 5-7) Last administered on 07/12/16 12:36; Start 07/08/16 at 16 :00; Stop 07/15/16 at 15:59 Acetaminophen/ Hydrocodone Bitart ([place], Anexsia 5/325) 2 tab Q6HP PRN PO SEVERE PAIN (PS 8-10) Last administered on 07/13/16 18:15; Start 07/08/16 at 16: 00; Stop 07/15/16 at 15:59 Albuterol Sulfate (Proventil, Ventolin Hfa) 2 puff Q6HP PRN INH sob; Start at 16:00; Stop 08/07/16 at 15:59 Amino Ac/Electrol/ Dextrose/Calcium 1,000 ml @ 75 mls/hr [id number] IV Last administered on 07/13/16 07:55; Start 07/11/16 at 18:00; Stop 07/13/16 at 16:11; Status DC Amino Ac/Electrol/ Dextrose/Calcium 2,000 ml @ 75 mls/hr 1T@18 IV Last administered on 07/13/16 18:14; Start 07/13/16 at 18:00; Stop 07/14/16 at 17:59 Artificial Tears ([place] Tears) 1 drop TID OU Last administered on 07/13/16 15:39 ; Start 07/08/16 at 21:00; Stop 08/07/16 at 20:59 Brimonidine Tartrate (Alphagan P 0.1%) 1 drop TID OU Last administered on 15:39; Start 07/08/16 at 21:00; Stop 08/07/16 at 20:59 Budesonide/ Formoterol Fumarate (Symbicort 160/ 4.5mcg) 2 puff BID INH Last administered on 07/13/16 07:43; Start 07/08/16 at 21:00; Stop 08/07/16 at 20:59 Ciprofloxacin 400 mg/IV Miscellaneous Supplies 200 ml @ 200 mls/hr Q12H IV Last administered on 07/13/16 18:15; Start 07/08/16 at 18:00; Stop 07/15/16 at 17 :59 Dextrose (Dextrose 50%) 25 ml ASDIRECTED PRN IV SEE LABEL COMMENTS; Start 07/08 at 16:00; Stop 08/07/16 at 15:59 Enoxaparin Sodium (Lovenox) 40 mg DAILY SC Last administered on 07/13/16 07:56 ; Start 07/09/16 at 09:00; Stop 07/18/16 at 08:59 Fat Emulsion Intravenous 500 ml @ 20 mls/hr 1T@18 IV Last administered on 18:47; Start 07/11/16 at 18:00; Stop 07/12/16 at 17:59; Status DC Fat Emulsion Intravenous 500 ml @ 20 mls/hr 1T@18 IV Last administered on 18:19; Start 07/12/16 at 18:00; Stop 07/13/16 at 17:59; Status DC Fat Emulsion Intravenous 500 ml @ 20 mls/hr 1T@18 IV Last administered on 18:14; Start 07/13/16 at 18:00; Stop 07/14/16 at 17:59 Glucagon (Glucagon) 1 mg ASDIRECTED PRN SC SEE LABEL COMMENTS; Start 07/08/16 at 16:00; Stop 08/07/16 at 15:59 Glucose (Glucose) 16 GM ASDIRECTED PRN PO SEE LABEL COMMENTS; Start 07/08/16 at 16:00; Stop 08/07/16 at 15:59 Home Med (Med Rec Complete!) ASDIRECTED XX ; Start 07/08/16 at 15:15; Stop at 15:15; Status DC Hydrochlorothiazide (Hydrodiuril) 25 mg DAILY PO Last administered on 07/10/16 08:10; Start 07/09/16 at 09:00; Stop 07/11/16 at 07:29; Status DC Insulin Human Lispro (HumaLOG INSULIN) SEE PROTOCOL TABLE AC SC Last administered on 07/10/16 12:01; Start 07/08/16 at 17:30; Stop 07/11/16 at 11:55; Status DC Insulin Human Lispro (HumaLOG INSULIN) SEE PROTOCOL TABLE Q6H SC Last administered on 07/13/16 18:14; Start 07/11/16 at 12:00; Stop 08/10/16 at 11:59 Lactated Ringer's 1,000 ml @ 125 mls/hr Q8H IV Last administered on 07/11/16 08:23; Start 07/08/16 at 15:53; Stop 07/11/16 at 11:34; Status DC Lisinopril (Prinivil) 40 mg DAILY PO Last administered on 07/13/16 07:55; Start 07/09/16 at 09:00; Stop 08/08/16 at 08:59 Metronidazole 500 mg/IV Miscellaneous Supplies 100 ml @ 100 mls/hr Q8H IV Last administered on 07/13/16 12:10; Start 07/08/16 at 20:00; Stop 07/15/16 at 19 :59 Ondansetron HCl (ZOFRAN INJection) 4 mg Q6HP PRN IV NAUSEA OR VOMITING; Start 07/08/16 at 16:00; Stop 08/07/16 at 15:59 Pantoprazole Sodium (Protonix) 40 mg DAILY IV Last administered on 07/13/16 07: 56; Start 07/09/16 at 09:00; Stop 08/08/16 at 08:59 Simvastatin (Zocor) 80 mg DAILY PO Last administered on 07/11/16 09:44; Start 07/10/16 at 09:00; Stop 07/11/16 at 11:34; Status DC Terazosin HCl (Hytrin) 5 mg DAILY PO Last administered on 6/5/17at 07:55; Start 07/09/16 at 09:00; Stop 08/08/16 at 08:59 Tiotropium Bishop (Spiriva Handihaler) 1 inhalation DAILY@08 INH Last administered on 07/13/16t 07:42; Start 07/09/16 at 08:00; Stop 08/08/16 at 07:59 Allergies Coded Allergies: No Known Drug Allergy (Verified Allergy, Unknown, 05/15/12) Amitriptyline (Unverified Adverse Reaction, Unknown, seizures, 07/08/16) Objective Physical Examination Examination GENERAL APPEARANCE:[Patient seen, laying in bed, awake, alert, and oriented. Comfortable, in no acute distress]. SKIN: [Warm and moist]. HEENT: [Normocephalic, atraumatic. [place] palpebral conjunctiva, anicteric sclerae. Lips and mucosa appear moist]. NECK: [Supple, no thyromegaly. No obvious jugular venous distention]. LUNGS: [Clear to auscultation bilaterally. No wheezing appreciated]. HEART: [No chest wall abnormalities. Regular rate and rhythm with no murmurs appreciated]. ABDOMEN: Abdomen is round, moderately distended, soft. No distention is decreased from it was last Wednesday but still the abdomen is distended and tympanitic. Minimally tender over the left lower quadrant area without any rebound or guarding. EXTREMITIES: [Extremities have no deformities. No edema identified]. Vital Signs Vital Signs Date Time Temp Pulse Resp B/P (MAP) Pulse Ox O2 Delivery O2 Flow Rate FiO2 07/13/16 18:15 18 Room Air 07/13/16 14:30 97.8 69 128/68 (88) 94 07/09/16 16:54 2 I&Os I&O- Last 24 Hours up to 6 AM 07/13/16 06:00 Intake Total 2405 ml Output Total 2500 ml Balance -95 ml NG tube 300 ML's Four BMs recorded - small in amount Laboratory Data Labs 24H Laboratory Tests 2 07/12/16 23:49: Bedside Glucose (Misc Panel) 147H 07/13/16 05:52: Bedside Glucose (Misc Panel) 136H 07/13/16 11:20: Bedside Glucose (Misc Panel) 168H 07/13/16 16:58: Bedside Glucose (Misc Panel) 155H Impression Colon obstruction secondary to large polyp in the rectosigmoid area. An NG tube was placed over the weekend. He continues to have abdominal distention. He has some small bowel movements but is only passing flatus intermittently. Continue with nasogastric tube decompression. A PICC line has been placed today. We will start him on TPN. Plan is for low anterior resection on Wednesday. With the way his abdomen looks right now, I discussed with him that he most likely will have a temporary colostomy or a diverting ileostomy if he decided that we can make our anastomosis. This was explained to the patient. Plan / VTE VTE Prophylaxis Ordered?: Yes CESAR LUJAN MD Jul 13, 2016 18:59
[2016-07-13 22:00] VITALS: BP 139/90
[2016-07-14] MEDS: NORCO, ANEXSIA 5/325MG TABLET (HYDROcodone/ACETAMINOPHEN) PO PRN ×4 (00:17→18:29)
[2016-07-14] MEDS: metroNIDAZOLE 500 MG in APPROPRIATE DILUENT 1 EA IV SCH ×3 (03:57→20:55)
[2016-07-14] MEDS: SODIUM CHLORIDE 0.9% INJ 10 ML SYR IV SCH ×2 (05:29→18:27)
[2016-07-14] MEDS: CIPROFLOXACIN 400 MG in APPROPRIATE DILUENT 1 EA IV SCH ×2 (05:29→18:25)
[2016-07-14] MEDS: HumaLOG INSULIN (NovoLOG) PER UNIT SC SCH ×4 (05:30→18:26)
[2016-07-14 06:00] VITALS: BP 147/80
[2016-07-14] MEDS: TIOTROPIUM INHALER/CAPSULE (SPIRIVA) INH SCH (07:41)
[2016-07-14] MEDS: SYMBICORT 160/4.5MCG INHALER 6GM INH SCH ×2 (07:41→21:43)
[2016-07-14 08:31] LABS: CARCINOEMBRYONIC ANTIGEN 1.7 NG/ML (<2.5)
[2016-07-14] MEDS: LISINOPRIL 40 MG TAB PO SCH (10:12)
[2016-07-14] MEDS: PANTOPRAZOLE 40MG INJ (PROTONIX) (C9113) IV SCH (10:12)
[2016-07-14] MEDS: ENOXAPARIN 40 MG/0.4 ML SYRINGE (J1650) SC SCH (10:12)
[2016-07-14] MEDS: POLYVINYL ALCOHOL OPHTH SOLN 15 ML(LIQUITEARS) OU SCH ×3 (10:13→20:55)
[2016-07-14] MEDS: TERAZOSIN 5 MG CAP PO SCH (10:13)
[2016-07-14] MEDS: BRIMONIDINE 0.1% OPHTH SOLN 5 ML OU SCH ×3 (10:13→20:55)
[2016-07-14 14:00] VITALS: BP 148/81
--- NOTE | 2016-07-14 16:11 | IPN ---
DATE: 07/14/2016 SUBJECTIVE: The patient is seen and examined in the room today. The patient is resting comfortably in bed. Nasogastric (NG) tube in place. He still complains about abdominal distention. No overnight events reported. OBJECTIVE: VITAL SIGNS: Temperature is 97.6, pulse is 73, respiratory rate 18, blood pressure is 147/80, pulse oximetry is 90% on room air. GENERAL: No sign of acute distress, alert and oriented times three. HEENT: Normocephalic, atraumatic. Nasogastric (NG) tube in place. Extraocular motor grossly intact. CARDIOVASCULAR: Positive S1, S2, regular rate. LUNGS: Clear to auscultation bilaterally. ABDOMEN: There is some abdominal distention. There is some fullness, especially in the lower abdomen bilaterally. There is some mild tenderness upon palpation. Bowel sounds present. EXTREMITIES: No edema. No sign of cyanosis. LABORATORY DATA: WBC is 8.1, hemoglobin is 13.7, hematocrit 40.7, platelet count is 266. Sodium is 136, potassium 3.5, chloride is 102, carbon dioxide is 24, BUN 7, creatinine 0.81, GFR greater than 60, fasting glucose 159, calcium is 8.9, total bilirubin 0.4, AST 35, ALT 38, alkaline phosphatase 62, total protein is 6.8, albumin is 3.1. CEA is 1.7. ASSESSMENT AND PLAN: 1. Colonic mass. Biopsy pathology came back negative for malignancy. The patient is planned for the operating room (OR) by Dr. Mosher tomorrow. The patient will nothing by mouth and nasogastric (NG) is in place. 2. Questionable history of coronary artery disease. Aspirin is on hold. On statin. 3. Hypertension. Currently, blood pressure is in the satisfactory range. 4. Obstructive sleep apnea (LOUIS), on continuous positive airway pressure (CPAP). 5. Diabetes, on sliding scale. The patient is nothing by mouth. 6. Benign prostatic hypertrophy. The patient is on terazosin 5 mg by mouth daily. 7. History of hiatal hernia and Caceres's esophagus. On proton pump inhibitor. 8. Hyperlipidemia. On statin. 9. History of chronic obstructive pulmonary disease (COPD). No exacerbation. Continue breathing treatment as needed. 10. Dvt prophylaxis. We will refer the management to primary surgical team. Currently, the patient is on Lovenox. MTDD
[2016-07-14] MEDS ORDERED: AMINO AC/ELECTROLYTE/DEX/CALC 2,000 ML IV SCH (18:00)
[2016-07-14] MEDS ORDERED: FAT EMULSION IV 20% 500 ML IV SCH (18:00)
[2016-07-14 22:00] VITALS: BP 127/66
[2016-07-15] MEDS: HumaLOG INSULIN (NovoLOG) PER UNIT SC SCH ×5 (00:34→23:22)
[2016-07-15] MEDS: NORCO, ANEXSIA 5/325MG TABLET (HYDROcodone/ACETAMINOPHEN) PO PRN ×2 (00:35→06:35)
[2016-07-15] MEDS: metroNIDAZOLE 500 MG in APPROPRIATE DILUENT 1 EA IV SCH ×3 (03:49→23:36)
[2016-07-15] MEDS: SODIUM CHLORIDE 0.9% INJ 10 ML SYR IV SCH ×2 (05:27→18:00)
[2016-07-15] MEDS: CIPROFLOXACIN 400 MG in APPROPRIATE DILUENT 1 EA IV SCH (05:27)
--- NOTE | 2016-07-15 07:43 | IPNPDOC ---
Subjective General Date/Time Seen The patient was seen on 07/15/16 at 07:40. Subject Chief Complaint/History The patient is a 66-year-old male admitted with a reason for visit partial colon obstruction from large rectosigmoid polyp He continues to complain of crampy abdominal pain. He is intermittently passing flatus and with only small BMs. Nasogastric tube in place draining minimally at this point. Abdomen still remains distended but without better. He is scheduled today for surgery. Current Medications Current Medications Current Medications Acetaminophen (Tylenol Tab) 650 mg Q4HP PRN PO MILD PAIN or TEMP > 101 Last administered on 07/09/16 18:10; Start 07/08/16 at 16:00; Stop 08/07/16 at 15:59 Acetaminophen/ Hydrocodone Bitart ([place], Anexsia 5/325) 1 tab Q4HP PRN PO MODERATE PAIN (PS 5-7) Last administered on 07/12/16 12:36; Start 07/08/16 at 16 :00; Stop 07/15/16 at 15:59 Acetaminophen/ Hydrocodone Bitart ([place], Anexsia 5/325) 2 tab Q6HP PRN PO SEVERE PAIN (PS 8-10) Last administered on 07/15/16 06:35; Start 07/08/16 at 16: 00; Stop 07/15/16 at 15:59 Albuterol Sulfate (Proventil, Ventolin Hfa) 2 puff Q6HP PRN INH sob; Start at 16:00; Stop 08/07/16 at 15:59 Amino Ac/Electrol/ Dextrose/Calcium 1,000 ml @ 75 mls/hr [id number] IV Last administered on 07/13/16 07:55; Start 07/11/16 at 18:00; Stop 07/13/16 at 16:11; Status DC Amino Ac/Electrol/ Dextrose/Calcium 2,000 ml @ 75 mls/hr 1T@18 IV Last administered on 07/13/16 18:14; Start 07/13/16 at 18:00; Stop 07/14/16 at 17:59; Status DC Amino Ac/Electrol/ Dextrose/Calcium 2,000 ml @ 75 mls/hr 1T@18 IV Last administered on 07/14/16 18:26; Start 07/14/16 at 18:00; Stop 07/15/16 at 17:59 Artificial Tears (Akwa Tears) 1 drop TID OU Last administered on 07/14/16 20:55 ; Start 07/08/16 at 21:00; Stop 08/07/16 at 20:59 Brimonidine Tartrate (Alphagan P 0.1%) 1 drop TID OU Last administered on 20:55; Start 07/08/16 at 21:00; Stop 08/07/16 at 20:59 Budesonide/ Formoterol Fumarate (Symbicort 160/ 4.5mcg) 2 puff BID INH Last administered on 07/14/16 21:43; Start 07/08/16 at 21:00; Stop 08/07/16 at 20:59 Ciprofloxacin 400 mg/IV Miscellaneous Supplies 200 ml @ 200 mls/hr Q12H IV Last administered on 07/15/16 05:27; Start 07/08/16 at 18:00; Stop 07/15/16 at 17 :59 Dextrose (Dextrose 50%) 25 ml ASDIRECTED PRN IV SEE LABEL COMMENTS; Start 07/08 at 16:00; Stop 08/07/16 at 15:59 Enoxaparin Sodium (Lovenox) 40 mg DAILY SC Last administered on 07/14/16 10:12 ; Start 07/09/16 at 09:00; Stop 07/18/16 at 08:59 Fat Emulsion Intravenous 500 ml @ 20 mls/hr 1T@18 IV Last administered on 18:47; Start 07/11/16 at 18:00; Stop 07/12/16 at 17:59; Status DC Fat Emulsion Intravenous 500 ml @ 20 mls/hr 1T@18 IV Last administered on 18:19; Start 07/12/16 at 18:00; Stop 07/13/16 at 17:59; Status DC Fat Emulsion Intravenous 500 ml @ 20 mls/hr 1T@18 IV Last administered on 18:14; Start 07/13/16 at 18:00; Stop 07/14/16 at 17:59; Status DC Fat Emulsion Intravenous 500 ml @ 20 mls/hr 1T@18 IV Last administered on 18:26; Start 07/14/16 at 18:00; Stop 07/15/16 at 17:59 Glucagon (Glucagon) 1 mg ASDIRECTED PRN SC SEE LABEL COMMENTS; Start 07/08/16 at 16:00; Stop 08/07/16 at 15:59 Glucose (Glucose) 16 GM ASDIRECTED PRN PO SEE LABEL COMMENTS; Start 07/08/16 at 16:00; Stop 08/07/16 at 15:59 Heparin Sodium (Heparin (Flush)) 200 units ASDIRECTED PRN IV SEE LABEL COMMENTS ; Start 07/14/16 at 03:15; Stop 08/13/16 at 03:14 Heparin Sodium (Heparin (Flush)) 200 units PICC IV Last administered on 05:27; Start 07/14/16 at 06:00; Stop 08/13/16 at 05:59 Home Med (Med Rec Complete!) ASDIRECTED XX ; Start 07/08/16 at 15:15; Stop at 15:15; Status DC Hydrochlorothiazide (Hydrodiuril) 25 mg DAILY PO Last administered on 07/10/16 08:10; Start 07/09/16 at 09:00; Stop 07/11/16 at 07:29; Status DC Insulin Human Lispro (HumaLOG INSULIN) SEE PROTOCOL TABLE AC SC Last administered on 07/10/16 12:01; Start 07/08/16 at 17:30; Stop 07/11/16 at 11:55; Status DC Insulin Human Lispro (HumaLOG INSULIN) SEE PROTOCOL TABLE Q6H SC Last administered on 07/15/16 05:28; Start 07/11/16 at 12:00; Stop 08/10/16 at 11:59 Lactated Ringer's 1,000 ml @ 125 mls/hr Q8H IV Last administered on 07/11/16 08:23; Start 07/08/16 at 15:53; Stop 07/11/16 at 11:34; Status DC Lisinopril (Prinivil) 40 mg DAILY PO Last administered on 07/14/16 10:12; Start 07/09/16 at 09:00; Stop 08/08/16 at 08:59; Status Future hold Metronidazole 500 mg/IV Miscellaneous Supplies 100 ml @ 100 mls/hr Q8H IV Last administered on 07/15/16 03:49; Start 07/08/16 at 20:00; Stop 07/15/16 at 19 :59 Ondansetron HCl (ZOFRAN INJection) 4 mg Q6HP PRN IV NAUSEA OR VOMITING; Start 07/08/16 at 16:00; Stop 08/07/16 at 15:59 Pantoprazole Sodium (Protonix) 40 mg DAILY IV Last administered on 07/14/16 10: 12; Start 07/09/16 at 09:00; Stop 08/08/16 at 08:59 Simvastatin (Zocor) 80 mg DAILY PO Last administered on 07/11/16 09:44; Start 07/10/16 at 09:00; Stop 07/11/16 at 11:34; Status DC Sodium Chloride (Saline Lock Flush) 10 ML PICC IV Last administered on 05:27; Start 07/14/16 at 06:00; Stop 08/13/16 at 05:59 Sodium Chloride (Saline Lock Flush) 10ML ASDIRECTED PRN IV SEE LABEL COMMENTS; Start 07/14/16 at 03:15; Stop 08/13/16 at 03:14 Terazosin HCl (Hytrin) 5 mg DAILY PO Last administered on 07/14/16 10:13; Start 07/09/16 at 09:00; Stop 08/08/16 at 08:59 Tiotropium [place] (Spiriva Handihaler) 1 inhalation DAILY@08 INH Last administered on 07/14/16 07:41; Start 07/09/16 at 08:00; Stop 08/08/16 at 07:59 Allergies Coded Allergies: No Known Drug Allergy (Verified Allergy, Unknown, 05/15/12) Amitriptyline (Unverified Adverse Reaction, Unknown, seizures, 07/08/16) Objective Physical Examination Examination GENERAL APPEARANCE:[Patient seen, laying in bed, awake, alert, and oriented. Comfortable, in no acute distress]. SKIN: [Warm and moist]. HEENT: [Normocephalic, atraumatic. [place] palpebral conjunctiva, anicteric sclerae. Lips and mucosa appear moist]. NECK: [Supple, no thyromegaly. No obvious jugular venous distention]. LUNGS: [Clear to auscultation bilaterally. No wheezing appreciated]. HEART: [No chest wall abnormalities. Regular rate and rhythm with no murmurs appreciated]. ABDOMEN: Abdomen is round, soft, moderately distended. Minimal tenderness over the left lower quadrant area and suprapubic area, no rebound. EXTREMITIES: Right arm surgically amputated, rest of extremities no deformities no edema. Vital Signs Vital Signs Date Time Temp Pulse Resp B/P (MAP) Pulse Ox O2 Delivery O2 Flow Rate FiO2 07/15/16 06:35 18 07/14/16 22:00 97.8 70 127/66 (86) 93 Room Air 07/09/16 16:54 2 I&Os I&O- Last 24 Hours up to 6 AM 07/15/16 06:00 Intake Total 1540 ml Output Total 2195 ml Balance -655 ml Laboratory Data Labs 24H Laboratory Tests 2 07/14/16 12:07: Bedside Glucose (Misc Panel) 215H 07/14/16 16:28: Bedside Glucose (Misc Panel) 182H 07/14/16 23:48: Bedside Glucose (Misc Panel) 181H 07/15/16 05:19: Bedside Glucose (Misc Panel) 207H Impression Partial colon obstruction from large rectosigmoid polyp He is scheduled for laparoscopic low anterior resection today. I reviewed with him the plans for the surgery. Given that he remains distended there is a chance , good chance that he will need diversion with anastomosis or end colostomy without anastomosis. He understands the importance of this. Consent was obtained from the patient. He remains on Cipro and metronidazole perioperatively. He remains on TPN. Plan / VTE VTE Prophylaxis Ordered?: Yes CESAR LUJAN MD Jul 15, 2016 07:43
[2016-07-15] MEDS: TIOTROPIUM INHALER/CAPSULE (SPIRIVA) INH SCH (07:51)
[2016-07-15] MEDS: SYMBICORT 160/4.5MCG INHALER 6GM INH SCH ×2 (07:52→19:55)
[2016-07-15] MEDS: POLYVINYL ALCOHOL OPHTH SOLN 15 ML(LIQUITEARS) OU SCH ×4 (08:01→23:29)
[2016-07-15] MEDS: BRIMONIDINE 0.1% OPHTH SOLN 5 ML OU SCH ×4 (08:02→23:29)
[2016-07-15] MEDS: PANTOPRAZOLE 40MG INJ (PROTONIX) (C9113) IV SCH (08:02)
[2016-07-15] MEDS: TERAZOSIN 5 MG CAP PO SCH (08:02)
[2016-07-15] MEDS: ENOXAPARIN 40 MG/0.4 ML SYRINGE (J1650) SC SCH (08:16)
[2016-07-15 08:21] LABS: BASO # 0.1 K/mm3 (0.0-0.2); BASO % 0.7 % (0.0-1.0); EOS # 0.3 K/mm3 (0.0-0.50); EOS % 3.5 % (0.0-3.0); LARGE UNSTAINED CELL # 0.1 K/mm3 (0.0-0.4); LYMPH # 0.6 K/mm3 (1.5-4.5); LYMPH % 6.3 % (24.0-44.0); MEAN CORPUSCULAR HEMOGLOBIN 31.1 pg (27.0-33.0); MEAN CORPUSCULAR HGB CONC 33.9 g/dl (32.0-36.5); MEAN CORPUSCULAR VOLUME 91.8 fl (80.0-96.0); MONO # 0.5 K/mm3 (0.0-0.8); NEUTROPHILS # 6.4 K/mm3 (1.8-7.7); NEUTROPHILS % 82.5 % (36.0-66.0); PLATELET COUNT, AUTOMATED 245 k/mm3 (150-450); RED CELL DISTRIBUTION WIDTH 12.9 % (11.5-14.5); WHITE BLOOD COUNT 7.7 K/mm3 (4.0-10.0)
[2016-07-15 08:43] LABS: ANION GAP 6 MEQ/L (8-16); BLOOD UREA NITROGEN 14 MG/DL (7-18); CALCIUM LEVEL 8.3 MG/DL (8.8-10.2); CARBON DIOXIDE LEVEL 27 MEQ/L (21-32); CHLORIDE LEVEL 103 MEQ/L (98-107); CREATININE FOR GFR 0.75 MG/DL (0.70-1.30); GLOMERULAR FILTRATION RATE > 60.0 (>49); GLUCOSE, FASTING 129 MG/DL (80-110); POTASSIUM SERUM 3.5 MEQ/L (3.5-5.1); SODIUM LEVEL 136 MEQ/L (136-145)
[2016-07-15] MEDS ORDERED: LIDOCAINE 1% SDV INJ 30 ML VIAL As Ordered ONE (12:50)
[2016-07-15] MEDS ORDERED: BUPIVACAINE HCL 0.25% 30 ML VIAL As Ordered ONE (12:51)
--- NOTE | 2016-07-15 14:58 | IPN ---
DATE: 07/15/2016 SUBJECTIVE: The patient is seen and examined in the room today. The patient denies any acute complaints or acute changes. The patient had scheduled surgery at approximately 12:00 to 1:00 p.m. The patient has been nothing by mouth. Nasogastric (NG) tube in place. OBJECTIVE: VITAL SIGNS: Temperature is 97.8, pulse is 70, respirations 17, blood pressure is 127/66, pulse oximetry is 93% in room air. GENERAL: No sign of acute distress, alert and oriented times three. HEENT: Normocephalic, atraumatic. Nasogastric (NG) tube in place. CARDIOVASCULAR: Positive S1, S2, regular rate. LUNGS: Clear to auscultation bilaterally. ABDOMEN: Still some abdominal distention. There is fullness, especially in the lower abdomen bilaterally. There is some mild tenderness to palpation. Bowel sounds present. EXTREMITIES: No edema. No sign of cyanosis. LABORATORY DATA: WBC is 7.7, hemoglobin is 13.6, hematocrit 40.2, platelet count is 245. Sodium is 136, potassium 3.5, chloride is 103, carbon dioxide is 27, BUN 14, creatinine 0.75, GFR greater than 60, fasting glucose 129, calcium is 8.3. ASSESSMENT AND PLAN: 1. Colonic mass. The patient is planned for the operating room (OR) by Dr. Mosher today. Estimated scheduled surgery time is around 12:00 to 1:00 o' clock. 2. Questionable history of coronary artery disease. Aspirin is on hold. The patient is on statin. 3. Hypertension. The patient's blood pressure is in the satisfactory range. 4. Obstructive sleep apnea (LOUIS), on continuous positive airway pressure (CPAP). 5. Diabetes, on sliding scale. The patient is nothing by mouth at this moment. 6. Benign prostatic hypertrophy. The patient is on terazosin 5 mg by mouth daily. 7. History of hiatal hernia and Caceres's esophagus, on proton pump inhibitor (PPI). 8. Hyperlipidemia, on statin. 9. History of chronic obstructive pulmonary disease (COPD). No exacerbation at this moment. We will continue treatment as needed. 10. Deep vein thrombosis (DVT) prophylaxis. The patient has been on Lovenox. MTDD
[2016-07-15] MEDS ORDERED: BUPIVACAINE LIPOSOME/PF 1.3% 20 ML VIAL (13.3MG/ML)(EXPAREL) As Ordered ONE (15:05)
[2016-07-15] MEDS ORDERED: CIPROFLOXACIN/D5W 400 MG/200 ML BAG (J0744) As Ordered ONE (15:27)
[2016-07-15] MEDS ORDERED: PROPOFOL 200 MG/20 ML VIAL As Ordered ONE (15:40)
[2016-07-15] MEDS ORDERED: MIDAZOLAM INJ 2 MG/2 ML VIAL (J2250) As Ordered ONE ×2 (15:40→20:17)
[2016-07-15] MEDS ORDERED: KETOROLAC 60 MG/2 ML VIAL (J1885) As Ordered ONE (15:40)
[2016-07-15] MEDS ORDERED: LIDOCAINE 2% INJ 100 MG/5 ML SDV (FOR ANES.) As Ordered ONE (15:40)
[2016-07-15] MEDS ORDERED: ROCURONIUM BROMIDE 50 MG/5 ML VIAL/SYRINGE As Ordered ONE ×3 (15:40→18:26)
[2016-07-15] MEDS ORDERED: NEOSTIGMINE 1MG/ML 5 ML SYRINGE (J2710) As Ordered ONE (15:40)
[2016-07-15] MEDS ORDERED: GLYCOPYRROLATE INJ 0.2 MG/ML 2 ML VIAL As Ordered ONE (15:40)
[2016-07-15] MEDS ORDERED: fentaNYL 250 MCG/5 ML INJECTION (J3010) As Ordered ONE ×2 (15:40→18:16)
[2016-07-15] MEDS ORDERED: dexameTHASONE 4 MG/ML 1ML VIAL (J1100) As Ordered ONE (15:40)
[2016-07-15] MEDS ORDERED: HYDROmorphone HCL 2 MG/ML 1ML VIAL (J1170) As Ordered ONE (15:40)
[2016-07-15] MEDS ORDERED: ONDANSETRON 4MG/2ML VIAL (J2405) As Ordered ONE (15:40)
[2016-07-15] MEDS ORDERED: MULTIVITAMIN -ADULT INJECTION 10 ML, CR/CU/SE/MN/ZN INJ 1 ML in AMINO AC/ELECTROLYTE/DE... IV SCH (18:00)
[2016-07-15] MEDS ORDERED: FAT EMULSION IV 20% 500 ML IV SCH (18:00)
[2016-07-15] MEDS ORDERED: HumaLOG INSULIN (NovoLOG) PER UNIT As Ordered ONE (19:56)
[2016-07-15] MEDS ORDERED: HYDROmorphone HCL 1 MG/ML SYRINGE (J1170) IV PRN (20:15)
[2016-07-15] MEDS ORDERED: PERCOCET 5MG/325MG TAB PO PRN (20:15)
[2016-07-15] MEDS ORDERED: ONDANSETRON 4MG/2ML VIAL (J2405) IV PRN (20:15)
[2016-07-15] MEDS ORDERED: fentaNYL 100 MCG/2 ML INJECTION (J3010) IV PRN (20:15)
[2016-07-15] MEDS ORDERED: LR 1,000 ML IV SCH (20:15)
[2016-07-15] MEDS ORDERED: METOCLOPRAMIDE INJ 10MG/2ML VIAL (J2765) IV PRN (20:15)
[2016-07-15] MEDS ORDERED: HumaLOG INSULIN (NovoLOG) PER UNIT SC ONE (20:15)
--- NOTE | 2016-07-15 20:23 | REP ---
KUB, ONE VIEW: HISTORY: Foreign body. Air is present in small and large intestine. There are several dilated loops of small intestine. There are no fluid levels. There is no pneumoperitoneum. Drainage tubing and surgical clips are present. There is no radiopaque foreign body. IMPRESSION: There is no radiopaque foreign body. Signed by Chester Sanders MD 07/16/2016 08:02 A
[2016-07-15] MEDS ORDERED: MIDAZOLAM INJ 2 MG/2 ML VIAL (J2250) IV PRN (20:30)
[2016-07-15] MEDS ORDERED: HYDROmorphone HCL 1 MG/ML SYRINGE (J1170) As Ordered ONE (22:37)
[2016-07-15 23:00] VITALS: BP 123/70
[2016-07-15 23:03] VITALS: BP 135/73
[2016-07-15] MEDS: KETOROLAC 30 MG/ML VIAL (J1885) IV SCH (23:21)
[2016-07-16] VITALS (9 sets, daily range): BP systolic 101–168; BP diastolic 61–96
[2016-07-16] MEDS: CIPROFLOXACIN 400 MG in APPROPRIATE DILUENT 1 EA IV SCH ×2 (01:10→13:18)
[2016-07-16] MEDS: KETOROLAC 30 MG/ML VIAL (J1885) IV SCH ×4 (04:58→21:08)
[2016-07-16 05:49] LABS: MEAN CORPUSCULAR HEMOGLOBIN 31.2 pg (27.0-33.0); MEAN CORPUSCULAR HGB CONC 34.1 g/dl (32.0-36.5); MEAN CORPUSCULAR VOLUME 91.5 fl (80.0-96.0); RED CELL DISTRIBUTION WIDTH 12.8 % (11.5-14.5)
[2016-07-16] MEDS: HumaLOG INSULIN (NovoLOG) PER UNIT SC SCH ×3 (06:00→17:31)
[2016-07-16 06:05] LABS: ANION GAP 5 MEQ/L (8-16); BLOOD UREA NITROGEN 17 MG/DL (7-18); CALCIUM LEVEL 7.5 MG/DL (8.8-10.2); CARBON DIOXIDE LEVEL 28 MEQ/L (21-32); CHLORIDE LEVEL 104 MEQ/L (98-107); CREATININE FOR GFR 0.86 MG/DL (0.70-1.30); GLOMERULAR FILTRATION RATE > 60.0 (>49); GLUCOSE, FASTING 114 MG/DL (80-110); POTASSIUM SERUM 4.8 MEQ/L (3.5-5.1); SODIUM LEVEL 137 MEQ/L (136-145)
[2016-07-16] MEDS: SODIUM CHLORIDE 0.9% INJ 10 ML SYR IV SCH ×2 (06:16→17:30)
[2016-07-16] MEDS ORDERED: SODIUM CHLORIDE 0.9% 1000 ML IV ONE (08:15)
[2016-07-16] MEDS: metroNIDAZOLE 500 MG in APPROPRIATE DILUENT 1 EA IV SCH ×2 (08:16→15:43)
[2016-07-16] MEDS: PANTOPRAZOLE 40MG INJ (PROTONIX) (C9113) IV SCH (08:17)
[2016-07-16] MEDS: ENOXAPARIN 40 MG/0.4 ML SYRINGE (J1650) SC SCH (08:17)
[2016-07-16] MEDS: LISINOPRIL 40 MG TAB PO SCH (08:17)
[2016-07-16] MEDS: POLYVINYL ALCOHOL OPHTH SOLN 15 ML(LIQUITEARS) OU SCH ×3 (08:18→21:07)
[2016-07-16] MEDS: BRIMONIDINE 0.1% OPHTH SOLN 5 ML OU SCH ×3 (08:18→21:07)
[2016-07-16] MEDS: LR 1,000 ML IV SCH ×2 (08:24→13:20)
[2016-07-16] MEDS: TERAZOSIN 5 MG CAP PO SCH (09:00)
[2016-07-16] MEDS: TIOTROPIUM INHALER/CAPSULE (SPIRIVA) INH SCH (09:37)
[2016-07-16] MEDS: SYMBICORT 160/4.5MCG INHALER 6GM INH SCH ×2 (09:37→20:37)
[2016-07-16] MEDS: MORPHINE 10 MG/ML 1ML VIAL IV PRN ×2 (11:37→17:31)
[2016-07-16] MEDS: NORCO, ANEXSIA 5/325MG TABLET (HYDROcodone/ACETAMINOPHEN) PO PRN (13:19)
--- NOTE | 2016-07-16 14:47 | IPN ---
DATE: 07/16/2016 SUBJECTIVE: The patient is seen and examined in the room today. The patient feels fatigued after surgery yesterday. He is still complaining of significant discomfort near the abdominal surgical site. Yesterday after the procedure, the patient was found to have confusion, therefore, the patient was transferred from postanesthesia care unit to the progressive care unit (PCU) for cardiac monitoring and for a higher level of care. No overnight events reported. OBJECTIVE: VITAL SIGNS: Temperature is 97.9, pulse is 87, respirations 20, blood pressure is 101/61, pulse oximetry is 91% in room air. GENERAL: Fatigued. No sign of acute distress. Alert and oriented times three. HEENT: Normocephalic, atraumatic. Extraocular motions are grossly intact. CARDIOVASCULAR: Positive S1, S2, regular rate. No abnormal rhythm detected on cardiac telemetry. LUNGS: Clear to auscultation bilaterally. ABDOMEN: Severe tenderness to even minor palpation in the abdomen. The mid abdomen is covered with a dressing. There is an abdominal drainage tube in place. Abdomen is soft. EXTREMITIES: No edema. No sign of cyanosis. Compression stockings in place. LABORATORY DATA: WBC is 15, hemoglobin is 12.8, hematocrit 37.6, platelet count is 247. Sodium is 137, potassium 4.8, chloride is 104, carbon dioxide is 28, BUN 17, creatinine 0.86, GFR greater than 60, fasting glucose is 114, calcium is 7.5. ASSESSMENT AND PLAN: 1. Colonic mass, status post surgical removal. Today is postoperative day 1. The patient is monitored on cardial telemtry. The patient's confusion has resolved. No cardiac arrhythmia detected on the monitor. 2. Questionable history of coronary artery disease. Aspirin is on hold. The patient is on statins. The patient has had intermittent spikes of hypertension, mostly due to severe abdominal pain. Usually when the pain is resolved, the patient has a blood pressure ranging between 101 to 139. If the patient has persistent hypertension , we will treat accordingly. 3. Obstructive sleep apnea (LOUIS), on continuous positive airway pressure (CPAP) . 4. Diabetes. We will refer diet to the primary surgical team. Currently, the patient is on sliding scale. 5. Benign prostatic hypertrophy. The patient is on terazosin 5 mg by mouth daily. 6. History of hiatal hernia and Caceres's esophagus. The patient is on Protonix IV daily. 7. Hyperlipidemia, on statin. 8. History of chronic obstructive pulmonary disease (COPD). The patient does not have acute exacerbation. Continue to monitor. Continue breathing treatments as needed. 9. Deep vein thrombosis (DVT) prophylaxis. The patient is on Lovenox. MTDD
[2016-07-16] MEDS ORDERED: FAT EMULSION IV 20% 500 ML IV SCH (18:00)
[2016-07-16] MEDS ORDERED: AMINO AC/ELECTROLYTE/DEX/CALC 2,000 ML IV SCH (18:00)
[2016-07-17] VITALS (7 sets, daily range): BP systolic 118–166; BP diastolic 58–71
[2016-07-17] MEDS: HumaLOG INSULIN (NovoLOG) PER UNIT SC SCH ×4 (00:46→18:03)
[2016-07-17] MEDS: metroNIDAZOLE 500 MG in APPROPRIATE DILUENT 1 EA IV SCH ×3 (00:46→16:06)
[2016-07-17] MEDS: NORCO, ANEXSIA 5/325MG TABLET (HYDROcodone/ACETAMINOPHEN) PO PRN (00:47)
[2016-07-17] MEDS: CIPROFLOXACIN 400 MG in APPROPRIATE DILUENT 1 EA IV SCH ×2 (02:03→12:33)
[2016-07-17] MEDS: KETOROLAC 30 MG/ML VIAL (J1885) IV SCH ×4 (04:40→21:46)
[2016-07-17 05:10] LABS: MEAN CORPUSCULAR HGB CONC 33.4 g/dl (32.0-36.5); MEAN CORPUSCULAR VOLUME 92.8 fl (80.0-96.0); RED CELL DISTRIBUTION WIDTH 12.8 % (11.5-14.5)
[2016-07-17 05:28] LABS: ANION GAP 3 MEQ/L (8-16); BLOOD UREA NITROGEN 16 MG/DL (7-18); CALCIUM LEVEL 7.6 MG/DL (8.8-10.2); CARBON DIOXIDE LEVEL 32 MEQ/L (21-32); CHLORIDE LEVEL 105 MEQ/L (98-107); CREATININE FOR GFR 0.74 MG/DL (0.70-1.30); GLOMERULAR FILTRATION RATE > 60.0 (>49); GLUCOSE, FASTING 265 MG/DL (80-110); POTASSIUM SERUM 4.2 MEQ/L (3.5-5.1); SODIUM LEVEL 140 MEQ/L (136-145)
[2016-07-17] MEDS: SODIUM CHLORIDE 0.9% INJ 10 ML SYR IV SCH ×2 (05:32→18:04)
[2016-07-17] MEDS: MORPHINE 10 MG/ML 1ML VIAL IV PRN ×3 (08:01→16:07)
[2016-07-17] MEDS: SYMBICORT 160/4.5MCG INHALER 6GM INH SCH ×2 (08:13→20:39)
[2016-07-17] MEDS: TIOTROPIUM INHALER/CAPSULE (SPIRIVA) INH SCH (08:13)
--- NOTE | 2016-07-17 10:35 | IPNPDOC ---
Subjective General Date/Time Seen The patient was seen on 07/17/16 at 07:34. Subject Chief Complaint/History The patient is a 66-year-old male admitted with a reason for visit of distal colon obstruction. He is postop day 2 after low anterior resection, colostomy, ileocecectomy with anastomosis. He seems to be doing much better. He is urine output picked up after we resumed his IV fluids. He is now on TPN. He got out of bed to the chair yesterday. He reports pain of about 6 out of 10 with our pain regimen working but not long enough. His nasogastric tube is draining minimally. His colostomy is pale appearing but is now working. Current Medications Current Medications Current Medications Acetaminophen (Tylenol Tab) 650 mg Q4HP PRN PO MILD PAIN or TEMP > 101 Last administered on 07/09/16 18:10; Start 07/08/16 at 16:00; Stop 08/07/16 at 15:59 Acetaminophen/ Hydrocodone Bitart ([place], Anexsia 5/325) 1 tab Q4HP PRN PO MODERATE PAIN (PS 5-7) Last administered on 07/17/16 00:47; Start 07/08/16 at 16 :00; Stop 07/22/16 at 15:59 Acetaminophen/ Hydrocodone Bitart ([place], Anexsia 5/325) 2 tab Q6HP PRN PO SEVERE PAIN (PS 8-10) Last administered on 07/16/16 13:19; Start 07/08/16 at 16: 00; Stop 07/22/16 at 15:59 Albuterol Sulfate (Proventil, Ventolin Hfa) 2 puff Q6HP PRN INH sob; Start at 16:00; Stop 08/07/16 at 15:59 Amino Ac/Electrol/ Dextrose/Calcium 1,000 ml @ 75 mls/hr [id number] IV Last administered on 07/13/16 07:55; Start 07/11/16 at 18:00; Stop 07/13/16 at 16:11; Status DC Amino Ac/Electrol/ Dextrose/Calcium 2,000 ml @ 75 mls/hr 1T@18 IV Last administered on 07/13/16 18:14; Start 07/13/16 at 18:00; Stop 07/14/16 at 17:59; Status DC Amino Ac/Electrol/ Dextrose/Calcium 2,000 ml @ 75 mls/hr 1T@18 IV Last administered on 07/14/16 18:26; Start 07/14/16 at 18:00; Stop 07/15/16 at 17:59; Status DC Amino Ac/Electrol/ Dextrose/Calcium 2,000 ml @ 90 mls/hr ONCE@1800 IV Last administered on 07/16/16 17:29; Start 07/16/16 at 18:00; Stop 07/17/16 at 17:59 Artificial Tears (Akwa Tears) 1 drop TID OU Last administered on 07/16/16 21:07 ; Start 07/08/16 at 21:00; Stop 08/07/16 at 20:59 Brimonidine Tartrate (Alphagan P 0.1%) 1 drop TID OU Last administered on 21:07; Start 07/08/16 at 21:00; Stop 08/07/16 at 20:59 Budesonide/ Formoterol Fumarate (Symbicort 160/ 4.5mcg) 2 puff BID INH Last administered on 07/16/16 20:37; Start 07/08/16 at 21:00; Stop 08/07/16 at 20:59 Ciprofloxacin 400 mg/IV Miscellaneous Supplies 200 ml @ 200 mls/hr Q12H IV Last administered on 07/15/16 05:27; Start 07/08/16 at 18:00; Stop 07/15/16 at 23 :11; Status DC Ciprofloxacin 400 mg/IV Miscellaneous Supplies 200 ml @ 200 mls/hr Q12H IV Last administered on 07/17/16 02:03; Start 07/16/16 at 01:00; Stop 07/23/16 at 00 :59 Dextrose (Dextrose 50%) 25 ml ASDIRECTED PRN IV SEE LABEL COMMENTS; Start 07/08 at 16:00; Stop 08/07/16 at 15:59 Enoxaparin Sodium (Lovenox) 40 mg DAILY SC Last administered on 07/16/16 08:17 ; Start 07/09/16 at 09:00; Stop 07/18/16 at 08:59 Fat Emulsion Intravenous 500 ml @ 20 mls/hr 1T@18 IV Last administered on 18:47; Start 07/11/16 at 18:00; Stop 07/12/16 at 17:59; Status DC Fat Emulsion Intravenous 500 ml @ 20 mls/hr 1T@18 IV Last administered on 18:19; Start 07/12/16 at 18:00; Stop 07/13/16 at 17:59; Status DC Fat Emulsion Intravenous 500 ml @ 20 mls/hr 1T@18 IV Last administered on 18:14; Start 07/13/16 at 18:00; Stop 07/14/16 at 17:59; Status DC Fat Emulsion Intravenous 500 ml @ 20 mls/hr 1T@18 IV Last administered on 18:26; Start 07/14/16 at 18:00; Stop 07/15/16 at 17:59; Status DC Fat Emulsion Intravenous 500 ml @ 20 mls/hr 1T@18 IV Last administered on 18:00; Start 07/15/16 at 18:00; Stop 07/15/16 at 19:58; Status DC Fat Emulsion Intravenous 500 ml @ 20 mls/hr ONCE@1800 IV Last administered on 07/16/16 17:29; Start 07/16/16 at 18:00; Stop 07/17/16 at 17:59 Fentanyl Citrate (Sublimaze) 25 mcg Q5MP PRN IV MODERATE PAIN (PS 4-7); Start 07/15/16 at 20:15; Stop 07/15/16 at 21:15; Status DC Glucagon (Glucagon) 1 mg ASDIRECTED PRN SC SEE LABEL COMMENTS; Start 07/08/16 at 16:00; Stop 08/07/16 at 15:59 Glucose (Glucose) 16 GM ASDIRECTED PRN PO SEE LABEL COMMENTS; Start 07/08/16 at 16:00; Stop 08/07/16 at 15:59 Heparin Sodium (Heparin (Flush)) 200 units ASDIRECTED PRN IV SEE LABEL COMMENTS ; Start 07/14/16 at 03:15; Stop 08/13/16 at 03:14 Heparin Sodium (Heparin (Flush)) 200 units PICC IV Last administered on 05:32; Start 07/14/16 at 06:00; Stop 08/13/16 at 05:59 Home Med (Med Rec Complete!) ASDIRECTED XX ; Start 07/08/16 at 15:15; Stop at 15:15; Status DC Hydrochlorothiazide (Hydrodiuril) 25 mg DAILY PO Last administered on 07/10/16 08:10; Start 07/09/16 at 09:00; Stop 07/11/16 at 07:29; Status DC Hydromorphone HCl (Dilaudid) 0.4 mg Q5MP PRN IV MODERATE/SEVERE PAIN (PS 7-10) Last administered on 07/15/16 22:45; Start 07/15/16 at 20:15; Stop 07/15/16 at 23: 59; Status DC Insulin Human Lispro (HumaLOG INSULIN) SEE PROTOCOL TABLE AC SC Last administered on 07/10/16 12:01; Start 07/08/16 at 17:30; Stop 07/11/16 at 11:55; Status DC Insulin Human Lispro (HumaLOG INSULIN) SEE PROTOCOL TABLE Q6H SC Last administered on 07/17/16 05:37; Start 07/11/16 at 12:00; Stop 08/10/16 at 11:59 Ketorolac Tromethamine (ToRADol) 30 mg Q6H IV Last administered on 07/17/16 04: 40; Start 07/15/16 at 22:00; Stop 07/20/16 at 21:59 Lactated Ringer's 1,000 ml @ 100 mls/hr Q10H IV ; Start 07/15/16 at 20:15; Stop 07/15/16 at 21:15; Status DC Lactated Ringer's 1,000 ml @ 125 mls/hr Q8H IV Last administered on 07/11/16 08:23; Start 07/08/16 at 15:53; Stop 07/11/16 at 11:34; Status DC Lactated Ringer's 1,000 ml @ 200 mls/hr Q5H IV Last administered on 07/16/16 13:20; Start 07/16/16 at 08:15; Stop 07/16/16 at 17:40; Status DC Lisinopril (Prinivil) 40 mg DAILY PO Last administered on 07/14/16 10:12; Start 07/09/16 at 09:00; Stop 08/08/16 at 08:59; Status Future hold Metoclopramide HCl (REGLAN INJection) 10 mg Q6HP PRN IV NAUSEA OR VOMITING; Start 07/15/16 at 20:15; Stop 07/15/16 at 21:15; Status DC Metronidazole 500 mg/IV Miscellaneous Supplies 100 ml @ 100 mls/hr Q8H IV Last administered on 07/15/16 12:10; Start 07/08/16 at 20:00; Stop 07/15/16 at 23 :11; Status DC Metronidazole 500 mg/IV Miscellaneous Supplies 100 ml @ 100 mls/hr Q8H IV Last administered on 07/17/16 00:46; Start 07/16/16 at 00:00; Stop 07/23/16 at 00 :00 Midazolam HCl (Versed) 1 mg ASDIRECTED PRN IV ANXIETY Last administered on 20:20; Start 07/15/16 at 20:30; Stop 07/15/16 at 21:30; Status DC Morphine Sulfate (Morphine Sulfate Inj) 5 mg Q2HP PRN IV SEVERE PAIN (PS 8-10) Last administered on 07/16/16 17:31; Start 07/15/16 at 20:15; Stop 07/22/16 at 20 :14 Multivitamins 10 ml/Chromium/ Copper/Manganese/ Seleni/Zn 1 ml/ Amino Ac/ Electrol/ Dextrose/Calcium 2,011 ml @ 75 mls/hr 1T@18 IV Last administered on 07/15/16 18:00; Start 07/15/16 at 18:00; Stop 07/15/16 at 19:58; Status DC Ondansetron HCl (ZOFRAN INJection) 4 mg Q4HP PRN IV NAUSEA OR VOMITING; Start 07/15/16 at 20:15; Stop 07/15/16 at 21:15; Status DC Ondansetron HCl (ZOFRAN INJection) 4 mg Q6HP PRN IV NAUSEA OR VOMITING; Start 07/08/16 at 16:00; Stop 08/07/16 at 15:59 Oxycodone/ Acetaminophen (Percocet 5mg/ 325mg Tablet) 1 tab ASDIRECTED PRN PO MODERATE PAIN (PS 4-7); Start 07/15/16 at 20:15; Stop 07/15/16 at 21:15; Status DC Pantoprazole Sodium (Protonix) 40 mg DAILY IV Last administered on 07/16/16 08: 17; Start 07/09/16 at 09:00; Stop 08/08/16 at 08:59 Simvastatin (Zocor) 80 mg DAILY PO Last administered on 07/11/16 09:44; Start 07/10/16 at 09:00; Stop 07/11/16 at 11:34; Status DC Sodium Chloride (Saline Lock Flush) 10 ML PICC IV Last administered on 05:32; Start 07/14/16 at 06:00; Stop 08/13/16 at 05:59 Sodium Chloride (Saline Lock Flush) 10ML ASDIRECTED PRN IV SEE LABEL COMMENTS; Start 07/14/16 at 03:15; Stop 08/13/16 at 03:14 Terazosin HCl (Hytrin) 5 mg DAILY PO Last administered on 07/14/16 10:13; Start 07/09/16 at 09:00; Stop 08/08/16 at 08:59 Tiotropium [place] (Spiriva Handihaler) 1 inhalation DAILY@08 INH Last administered on 07/16/16 09:37; Start 07/09/16 at 08:00; Stop 08/08/16 at 07:59 Allergies Coded Allergies: No Known Drug Allergy (Verified Allergy, Unknown, 05/15/12) Amitriptyline (Unverified Adverse Reaction, Unknown, seizures, 07/08/16) Objective Physical Examination Examination GENERAL APPEARANCE:Patient seen, laying in bed, awake, alert, and oriented. Comfortable, in no acute distress. SKIN: Warm and moist. HEENT: Normocephalic, atraumatic. Mildly pale palpebral conjunctiva, anicteric sclerae. Lips and mucosa appear dry. NG tube in place, working. NECK: Supple, no thyromegaly. No obvious jugular venous distention. LUNGS: Clear to auscultation bilaterally. No wheezing appreciated. HEART: No chest wall abnormalities. Regular rate and rhythm with no murmurs appreciated. ABDOMEN: Abdomen is round, soft, less distended. Still fairly quiet on auscultation. Mild tenderness over the incision site. Dressings are clean and dry. KESHIA drain is light pink serosanguineous. Left sided colostomy, pale, ischemic-appearing. With some liquid stool output, small amount of air EXTREMITIES: Right arm amputated surgically. Lower extremities with mild edema. Tirado catheter in place with light straw-colored urine. Vital Signs Vital Signs Date Time Temp Pulse Resp B/P (MAP) Pulse Ox O2 Delivery O2 Flow Rate FiO2 07/17/16 06:51 127/59 (81) 07/17/16 04:00 97.2 67 18 95 Room Air 07/17/16 04:00 2.0 I&Os I&O- Last 24 Hours up to 6 AM 07/17/16 06:00 Intake Total 2700 ml Output Total 2480 ml Balance 220 ml Drains 325 mL, light pink serosanguineous Ostomy 200 ML Nasogastric tube 300 ML's Laboratory Data CBC/BMP Laboratory Tests 07/17/16 05:00 Red Blood Count 3.45 L, Mean Corpuscular Volume 92.8, Mean Corpuscular Hemoglobin 31.0, Mean Corpuscular Hemoglobin Concent 33.4, Red Cell Distribution Width 12.8, Calcium Level 7.6 L Impression Postop day 2 for open low anterior resection with colostomy, ileocecal rectum he with ileocolic anastomosis Doing much better. Still has some pain issues though it seems the pain regimen is okay for now. Drains are serosanguineous. Colostomy starting to function. Purulent ischemic but not necrotic. He appears adequately hydrated now. We will keep him on TPN until he is good oral intake. We will clamp the nasogastric tube and if tolerated most likely discontinued later today or tomorrow. Discontinue Tirado catheter today. Continue trying to get him to ambulate. He is stable today we'll transfer out to regular floors. Plan / VTE VTE Prophylaxis Ordered?: Yes Plan / Urinary Catheter Urinary Catheter: D/C Tirado Reason for insertion/continuin: Perioperative CESAR LUJAN MD Jul 17, 2016 07:35
[2016-07-17] MEDS: ENOXAPARIN 40 MG/0.4 ML SYRINGE (J1650) SC SCH (11:05)
[2016-07-17] MEDS: PANTOPRAZOLE 40MG INJ (PROTONIX) (C9113) IV SCH (11:05)
[2016-07-17] MEDS: LISINOPRIL 40 MG TAB PO SCH (11:06)
[2016-07-17] MEDS: BRIMONIDINE 0.1% OPHTH SOLN 5 ML OU SCH ×3 (11:07→21:46)
[2016-07-17] MEDS: POLYVINYL ALCOHOL OPHTH SOLN 15 ML(LIQUITEARS) OU SCH ×3 (11:07→21:46)
[2016-07-17] MEDS: TERAZOSIN 5 MG CAP PO SCH (11:07)
--- NOTE | 2016-07-17 15:19 | IPN ---
DATE: 07/17/2016 SUBJECTIVE: The patient is seen and examined in the room today. The patient is still complaining of abdominal pain. Current pain medication makes the pain manageable. No events monitored on telemetry. Denies any acute changes. OBJECTIVE: VITAL SIGNS: Temperature 97.4, pulse 81, respirations 20, blood pressure 126/58, pulse oximetry 92% on room air. GENERAL: Fatigued, mild to moderate distress secondary to significant abdominal pain. The patient is alert and oriented times three. HEENT: Nasogastric (NG) tube in place. Normocephalic, atraumatic. Extraocular motor grossly intact. CARDIOVASCULAR: Positive S1, S2. Regular rate. LUNGS: Clear to auscultation bilaterally. ABDOMEN: Surgical dressing covering the whole mid abdomen. Dressing is dry, clean, and no active discharge or bleeding. Abdomen is soft. There is significant tenderness to palpation. EXTREMITIES: No edema. No sign of cyanosis. LABORATORY DATA: WBC 8, hemoglobin 10.7, hematocrit 32, platelet count is 206. Sodium is 140, potassium 4.2, chloride 105, carbon dioxide is 32, BUN 16, creatinine 0.74, GFR greater than 60, fasting glucose 265, calcium 7.6. ASSESSMENT AND PLAN: 1. Colonic mass, status post surgical resection. Today is postoperative day two. The patient is being monitoring on telemetry. No events are recorded. However, we refer the postsurgical care to the primary surgical team. 2. Questionable history of coronary artery disease. The patient is on statin. 3. Diabetes. We will refer the diet to the primary surgical team. Currently the patient is on a sliding scale. No hypoglycemic events are recorded. Currently the patient is on total parenteral nutrition (TPN). 4. Obstructive sleep apnea (LOUIS) on continuous positive airway pressure (CPAP). 5. History of hiatal hernia with Caceres's esophagus. The patient is on intravenous (IV) Protonix. 6. Dyslipidemia. On statin. 7. Chronic obstructive pulmonary disease (COPD). No exacerbation. Continue breathing treatment as needed. 8. Deep venous thrombosis (DVT) prophylaxis. The patient is on Lovenox. MTDD
[2016-07-17] MEDS ORDERED: HumaLOG INSULIN (NovoLOG) PER UNIT SC SCH (18:00)
[2016-07-17] MEDS ORDERED: FAT EMULSION IV 20% 500 ML IV SCH (18:00)
[2016-07-17] MEDS ORDERED: MULTIVITAMIN -ADULT INJECTION 10 ML, CR/CU/SE/MN/ZN INJ 1 ML in AMINO AC/ELECTROLYTE/DE... IV SCH (18:00)
[2016-07-18] MEDS: metroNIDAZOLE 500 MG in APPROPRIATE DILUENT 1 EA IV SCH ×4 (00:03→23:04)
[2016-07-18] MEDS: HumaLOG INSULIN (NovoLOG) PER UNIT SC SCH ×5 (00:05→23:13)
[2016-07-18] MEDS: NORCO, ANEXSIA 5/325MG TABLET (HYDROcodone/ACETAMINOPHEN) PO PRN ×3 (00:22→13:46)
[2016-07-18 01:06] VITALS: BP 118/58
[2016-07-18] MEDS: CIPROFLOXACIN 400 MG in APPROPRIATE DILUENT 1 EA IV SCH ×2 (01:39→12:25)
[2016-07-18 03:33] VITALS: BP 118/56
[2016-07-18] MEDS: KETOROLAC 30 MG/ML VIAL (J1885) IV SCH ×4 (04:00→22:29)
[2016-07-18 04:50] LABS: MEAN CORPUSCULAR HEMOGLOBIN 31.4 pg (27.0-33.0); MEAN CORPUSCULAR HGB CONC 33.4 g/dl (32.0-36.5); MEAN CORPUSCULAR VOLUME 94.2 fl (80.0-96.0); RED CELL DISTRIBUTION WIDTH 12.9 % (11.5-14.5); WHITE BLOOD COUNT 7.1 K/mm3 (4.0-10.0)
[2016-07-18 05:05] LABS: ANION GAP 6 MEQ/L (8-16); BLOOD UREA NITROGEN 19 MG/DL (7-18); CALCIUM LEVEL 7.4 MG/DL (8.8-10.2); CARBON DIOXIDE LEVEL 30 MEQ/L (21-32); CHLORIDE LEVEL 103 MEQ/L (98-107); CREATININE FOR GFR 0.69 MG/DL (0.70-1.30); GLOMERULAR FILTRATION RATE > 60.0 (>49); GLUCOSE, FASTING 257 MG/DL (80-110); POTASSIUM SERUM 4.3 MEQ/L (3.5-5.1); SODIUM LEVEL 139 MEQ/L (136-145)
[2016-07-18] MEDS: SODIUM CHLORIDE 0.9% INJ 10 ML SYR IV SCH ×2 (06:20→18:15)
[2016-07-18] MEDS: TIOTROPIUM INHALER/CAPSULE (SPIRIVA) INH SCH (07:20)
[2016-07-18] MEDS: SYMBICORT 160/4.5MCG INHALER 6GM INH SCH ×2 (07:21→20:09)
[2016-07-18] MEDS: MORPHINE 10 MG/ML 1ML VIAL IV PRN ×2 (07:56→18:33)
[2016-07-18] MEDS: SODIUM CHLORIDE 0.9% INJ 10 ML SYR IV PRN (07:56)
[2016-07-18 08:00] VITALS: BP 132/69
[2016-07-18] MEDS: LISINOPRIL 40 MG TAB PO SCH (09:24)
[2016-07-18] MEDS: TERAZOSIN 5 MG CAP PO SCH (09:24)
[2016-07-18] MEDS: ENOXAPARIN 40 MG/0.4 ML SYRINGE (J1650) SC SCH (09:25)
[2016-07-18] MEDS: BRIMONIDINE 0.1% OPHTH SOLN 5 ML OU SCH ×3 (09:25→22:31)
[2016-07-18] MEDS: POLYVINYL ALCOHOL OPHTH SOLN 15 ML(LIQUITEARS) OU SCH ×3 (09:25→22:31)
[2016-07-18] MEDS: PANTOPRAZOLE 40MG INJ (PROTONIX) (C9113) IV SCH (09:25)
--- NOTE | 2016-07-18 11:28 | IPN ---
DATE: 07/18/2016 SUBJECTIVE: Patient is seen and examined in the room today. The patient is still complaining of significant abdominal pain, which caused significant difficulty for him to use a urinal. Tirado catheter was removed yesterday. No events reported on telemetry. OBJECTIVE: VITAL SIGNS: Temperature 97.4, pulse 77, respirations 18, blood pressure 132/69, pulse oximetry 95% with 2 liters nasal cannula. GENERAL: Mild to moderate distress secondary to abdominal pain. Patient is alert and oriented times three. HEENT: Normocephalic, atraumatic. Extraocular motor grossly intact. CARDIOVASCULAR: Positive S1, S2. Regular rate. LUNGS: Clear to auscultation bilaterally. ABDOMEN: Surgical dressing covering the whole mid abdomen. Dressing is dry, clean, and no active discharge or bleeding is noted. There is significant tenderness to palpation of the abdomen. Bowel sounds present. Abdomen is soft. EXTREMITIES: No edema. No sign of cyanosis. LABORATORY DATA: WBC 7.1, hemoglobin 9.9, hematocrit 29.8, platelet count is 233. Sodium is 139, potassium 4.3, chloride 103, carbon dioxide is 30, BUN 19, creatinine 0.69, GFR greater than 60, fasting glucose 257, calcium 7.4. ASSESSMENT AND PLAN: 1. Colonic mass, status post surgical resection. Today is postoperative day 3. No events are detected on telemetry. Referred the postsurgical care to the primary surgical team. The pathology is still pending. 2. Questionable history of coronary artery disease. The patient is on a statin. 3. Diabetes. Patient is on TPN. Patient has a sliding scale. 4. Dyslipidemia. On statin. 5. History of chronic obstructive pulmonary disease (COPD), no exacerbation. 6. Obstructive sleep apnea (LOUIS) on CPAP. 7. History of hiatal hernia with Caceres's esophagus. Patient is on Protonix. 8. History of benign prostatic hypertrophy (BPH). No urinary retention reported. 9. Depression. 10. Deep venous thrombosis (DVT) prophylaxis. Patient is thromboembolic deterrent stockings (TEDS), sequential compression devices (SCD).
[2016-07-18 12:00] VITALS: BP 141/92
[2016-07-18] MEDS: ASPIRIN 81 MG ENTERIC TAB PO SCH (12:25)
[2016-07-18 16:00] VITALS: BP 149/69
[2016-07-18] MEDS ORDERED: AMINO AC/ELECTROLYTE/DEX/CALC 2,000 ML IV SCH (18:00)
[2016-07-18] MEDS ORDERED: FAT EMULSION IV 20% 500 ML IV SCH (18:00)
[2016-07-18 20:41] VITALS: BP 133/66
[2016-07-19] VITALS (8 sets, daily range): BP systolic 124–160; BP diastolic 64–83
[2016-07-19] MEDS: CIPROFLOXACIN 400 MG in APPROPRIATE DILUENT 1 EA IV SCH ×2 (00:06→12:36)
[2016-07-19] MEDS: MORPHINE 10 MG/ML 1ML VIAL IV PRN ×4 (00:21→17:24)
[2016-07-19] MEDS: KETOROLAC 30 MG/ML VIAL (J1885) IV SCH ×4 (03:16→21:19)
[2016-07-19] MEDS: SODIUM CHLORIDE 0.9% INJ 10 ML SYR IV SCH ×2 (05:24→17:28)
[2016-07-19 05:52] LABS: MEAN CORPUSCULAR HEMOGLOBIN 32.5 pg (27.0-33.0); RED CELL DISTRIBUTION WIDTH 13.1 % (11.5-14.5); WHITE BLOOD COUNT 6.7 K/mm3 (4.0-10.0)
[2016-07-19 06:08] LABS: ANION GAP 8 MEQ/L (8-16); BLOOD UREA NITROGEN 16 MG/DL (7-18); CALCIUM LEVEL 7.8 MG/DL (8.8-10.2); CARBON DIOXIDE LEVEL 28 MEQ/L (21-32); CHLORIDE LEVEL 103 MEQ/L (98-107); CREATININE FOR GFR 0.71 MG/DL (0.70-1.30); GLOMERULAR FILTRATION RATE > 60.0 (>49); GLUCOSE, FASTING 214 MG/DL (80-110); POTASSIUM SERUM 4.3 MEQ/L (3.5-5.1); SODIUM LEVEL 139 MEQ/L (136-145)
[2016-07-19] MEDS: HumaLOG INSULIN (NovoLOG) PER UNIT SC SCH ×4 (06:37→23:54)
[2016-07-19] MEDS: TIOTROPIUM INHALER/CAPSULE (SPIRIVA) INH SCH (07:31)
[2016-07-19] MEDS: SYMBICORT 160/4.5MCG INHALER 6GM INH SCH ×2 (07:31→22:11)
[2016-07-19] MEDS: ASPIRIN 81 MG ENTERIC TAB PO SCH (09:38)
[2016-07-19] MEDS: TERAZOSIN 5 MG CAP PO SCH (09:42)
[2016-07-19] MEDS: ENOXAPARIN 40 MG/0.4 ML SYRINGE (J1650) SC SCH (09:43)
[2016-07-19] MEDS: BRIMONIDINE 0.1% OPHTH SOLN 5 ML OU SCH ×3 (09:44→21:18)
[2016-07-19] MEDS: PANTOPRAZOLE 40MG INJ (PROTONIX) (C9113) IV SCH (09:44)
[2016-07-19] MEDS: metroNIDAZOLE 500 MG in APPROPRIATE DILUENT 1 EA IV SCH ×3 (09:44→23:54)
[2016-07-19] MEDS: POLYVINYL ALCOHOL OPHTH SOLN 15 ML(LIQUITEARS) OU SCH ×3 (09:46→21:18)
[2016-07-19] MEDS: LISINOPRIL 40 MG TAB PO SCH (10:20)
--- NOTE | 2016-07-19 11:52 | IPN ---
DATE: 07/19/2016 SUBJECTIVE: The patient seen and examined in the room today. The patient stated his abdominal pain is improving. The patient is able to walk around the hallway a few times yesterday. The patient is able to go to the rest room and the patient is noted to have increased mobility, however, he feels he is not back at his baseline yet. OBJECTIVE: VITAL SIGNS: Temperature 97.2, pulse is 92, respirations 18, blood pressure is 124/67. Pulse oximetry 92% on room air. GENERAL: No sign of acute distress. Alert and oriented times three. HEENT: Normocephalic, atraumatic. Extraocular movements grossly intact. CARDIOVASCULAR: Positive S1, S2, regular rate. LUNGS: Clear to auscultation bilaterally. ABDOMEN: Surgical dressing over whole abdomen. Dressing dry and clean. No active discharge. Bowel sounds present. Abdomen is soft. EXTREMITIES: No edema. No sign of cyanosis. LABORATORY DATA: WBC 6.7, hemoglobin 9.9, hematocrit 28.2, platelet count is 266. Sodium is 139. Potassium 4.3, chloride is 103. Carbon dioxide 28, BUN 16, creatinine 0.71. GFR greater than 60. Fasting glucose 214. Calcium is 7.8. ASSESSMENT AND PLAN: 1. Colonic mass, status post surgical resection. Today is postoperative day 4. The patient is on total parenteral nutrition (TPN). NG tube and Tirado has been removed. No events detected on telemetry. The pathology is pending. Refer postsurgical care to the primary surgical team. 2. Question of history of coronary artery disease. The patient on statins. 3. Diabetes. The patient on TPN. The patient is on sliding scale. 4. Dyslipidemia. On statins. 5. Chronic obstructive pulmonary disease (COPD). No exacerbation. Breathing comfortably on room air. 6. Obstructive sleep apnea (LOUIS) on continuous positive airway pressure (CPAP). 7. History of hiatal hernia and Caceres's esophagus. On Protonix. 8. History of benign prostatic hypertrophy (BPH). No issue with urination at this moment. No urinary retention is reported. The patient is on terazosin. 9. Deep venous thrombosis (DVT) prophylaxis. The patient is on Lovenox.
[2016-07-19] MEDS ORDERED: FAT EMULSION IV 20% 500 ML IV SCH (18:00)
[2016-07-19] MEDS ORDERED: AMINO AC/ELECTROLYTE/DEX/CALC 2,000 ML IV SCH (18:00)
[2016-07-19] MEDS: SODIUM CHLORIDE 0.9% INJ 10 ML SYR IV PRN (21:25)
[2016-07-20] MEDS: CIPROFLOXACIN 400 MG in APPROPRIATE DILUENT 1 EA IV SCH (01:09)
[2016-07-20 02:00] VITALS: BP 132/71
[2016-07-20] MEDS: NORCO, ANEXSIA 5/325MG TABLET (HYDROcodone/ACETAMINOPHEN) PO PRN ×3 (02:19→18:13)
[2016-07-20] MEDS: KETOROLAC 30 MG/ML VIAL (J1885) IV SCH ×3 (03:24→16:33)
[2016-07-20] MEDS: SODIUM CHLORIDE 0.9% INJ 10 ML SYR IV SCH ×2 (04:39→18:12)
[2016-07-20 05:10] LABS: MEAN CORPUSCULAR HEMOGLOBIN 31.5 pg (27.0-33.0); MEAN CORPUSCULAR HGB CONC 33.8 g/dl (32.0-36.5); MEAN CORPUSCULAR VOLUME 93.1 fl (80.0-96.0); RED CELL DISTRIBUTION WIDTH 13.1 % (11.5-14.5); WHITE BLOOD COUNT 7.5 K/mm3 (4.0-10.0)
[2016-07-20 05:20] LABS: ANION GAP 6 MEQ/L (8-16); BLOOD UREA NITROGEN 15 MG/DL (7-18); CALCIUM LEVEL 8.3 MG/DL (8.8-10.2); CARBON DIOXIDE LEVEL 29 MEQ/L (21-32); CHLORIDE LEVEL 105 MEQ/L (98-107); CREATININE FOR GFR 0.79 MG/DL (0.70-1.30); GLOMERULAR FILTRATION RATE > 60.0 (>49); GLUCOSE, FASTING 228 MG/DL (80-110); POTASSIUM SERUM 4.6 MEQ/L (3.5-5.1); SODIUM LEVEL 140 MEQ/L (136-145)
[2016-07-20] MEDS: HumaLOG INSULIN (NovoLOG) PER UNIT SC SCH ×4 (05:32→20:33)
[2016-07-20 06:00] VITALS: BP 136/65
[2016-07-20] MEDS: TIOTROPIUM INHALER/CAPSULE (SPIRIVA) INH SCH (07:12)
[2016-07-20] MEDS: SYMBICORT 160/4.5MCG INHALER 6GM INH SCH ×2 (07:12→19:21)
[2016-07-20] MEDS: metroNIDAZOLE 500 MG in APPROPRIATE DILUENT 1 EA IV SCH (07:52)
[2016-07-20] MEDS: MORPHINE 10 MG/ML 1ML VIAL IV PRN (07:52)
[2016-07-20] MEDS: ASPIRIN 81 MG ENTERIC TAB PO SCH (09:42)
[2016-07-20] MEDS: TERAZOSIN 5 MG CAP PO SCH (09:42)
[2016-07-20] MEDS: LISINOPRIL 40 MG TAB PO SCH (09:42)
[2016-07-20] MEDS: PANTOPRAZOLE 40MG INJ (PROTONIX) (C9113) IV SCH (09:43)
[2016-07-20] MEDS: POLYVINYL ALCOHOL OPHTH SOLN 15 ML(LIQUITEARS) OU SCH ×3 (09:43→20:26)
[2016-07-20] MEDS: ENOXAPARIN 40 MG/0.4 ML SYRINGE (J1650) SC SCH (09:43)
[2016-07-20] MEDS: BRIMONIDINE 0.1% OPHTH SOLN 5 ML OU SCH ×3 (09:43→20:26)
[2016-07-20] MEDS: SODIUM CHLORIDE 0.9% INJ 10 ML SYR IV PRN (09:44)
--- NOTE | 2016-07-20 09:48 | IPNPDOC ---
Subjective General Date/Time Seen The patient was seen on 07/20/16 at 08:13. Subject Chief Complaint/History The patient is a 66-year-old male admitted with a reason for visit of colon obstruction he is postoperative day #5 after low anterior resection, colostomy, ileocecectomy with anastomosis. Relatively stable over the weekend. He is on clear liquids. He denies any nausea. His colostomy is functioning. He reports of pain around drain site and lower midline incision. Also some burning pain lateral to the colostomy site. He is ambulating to hallways with help getting back to bed. Current Medications Current Medications Current Medications Acetaminophen (Tylenol Tab) 650 mg Q4HP PRN PO MILD PAIN or TEMP > 101 Last administered on 07/09/16 18:10; Start 07/08/16 at 16:00; Stop 08/07/16 at 15:59 Acetaminophen/ Hydrocodone Bitart (Warren, Anexsia 5/325) 1 tab Q4HP PRN PO MODERATE PAIN (PS 5-7) Last administered on 07/18/16 06:16; Start 07/08/16 at 16:00; Stop 07/22/16 at 15:59 Acetaminophen/ Hydrocodone Bitart (Warren, Anexsia 5/325) 2 tab Q6HP PRN PO SEVERE PAIN (PS 8-10) Last administered on 07/20/16 02:19; Start 07/08/16 at 16 :00; Stop 07/22/16 at 15:59 Albuterol Sulfate (Proventil, Ventolin Hfa) 2 puff Q6HP PRN INH sob; Start at 16:00; Stop 08/07/16 at 15:59 Amino Ac/Electrol/ Dextrose/Calcium 1,000 ml @ 75 mls/hr [id number] IV Last administered on 07/13/16 07:55; Start 07/11/16 at 18:00; Stop 07/13/16 at 16:11; Status DC Amino Ac/Electrol/ Dextrose/Calcium 2,000 ml @ 50 mls/hr ONCE@1800 IV Last administered on 07/18/16 15:09; Start 07/18/16 at 18:00; Stop 07/19/16 at 17:59 ; Status DC Amino Ac/Electrol/ Dextrose/Calcium 2,000 ml @ 50 mls/hr ONCE@1800 IV Last administered on 07/19/16 17:42; Start 07/19/16 at 18:00; Stop 07/20/16 at 17:59 Amino Ac/Electrol/ Dextrose/Calcium 2,000 ml @ 75 mls/hr 1T@18 IV Last administered on 07/13/16 18:14; Start 07/13/16 at 18:00; Stop 07/14/16 at 17:59; Status DC Amino Ac/Electrol/ Dextrose/Calcium 2,000 ml @ 75 mls/hr 1T@18 IV Last administered on 07/14/16 18:26; Start 07/14/16 at 18:00; Stop 07/15/16 at 17:59; Status DC Amino Ac/Electrol/ Dextrose/Calcium 2,000 ml @ 90 mls/hr ONCE@1800 IV Last administered on 07/16/16 17:29; Start 07/16/16 at 18:00; Stop 07/17/16 at 17:59; Status DC Artificial Tears (Akwa Tears) 1 drop TID OU Last administered on 07/19/16 21: 18; Start 07/08/16 at 21:00; Stop 08/07/16 at 20:59 Aspirin (Ecotrin) 81 mg DAILY PO Last administered on 07/19/16 09:38; Start at 09:00; Stop 08/17/16 at 08:59 Brimonidine Tartrate (Alphagan P 0.1%) 1 drop TID OU Last administered on 21:18; Start 07/08/16 at 21:00; Stop 08/07/16 at 20:59 Budesonide/ Formoterol Fumarate (Symbicort 160/ 4.5mcg) 2 puff BID INH Last administered on 07/20/16 07:12; Start 07/08/16 at 21:00; Stop 08/07/16 at 20:59 Ciprofloxacin 400 mg/IV Miscellaneous Supplies 200 ml @ 200 mls/hr Q12H IV Last administered on 07/15/16 05:27; Start 07/08/16 at 18:00; Stop 07/15/16 at 23 :11; Status DC Ciprofloxacin 400 mg/IV Miscellaneous Supplies 200 ml @ 200 mls/hr Q12H IV Last administered on 07/20/16 01:09; Start 07/16/16 at 01:00; Stop 07/23/16 at 00:59 Dextrose (Dextrose 50%) 25 ml ASDIRECTED PRN IV SEE LABEL COMMENTS; Start 07/08 at 16:00; Stop 08/07/16 at 15:59 Enoxaparin Sodium (Lovenox) 40 mg DAILY SC Last administered on 07/19/16 09:43 ; Start 07/09/16 at 09:00; Stop 07/22/16 at 08:59 Fat Emulsion Intravenous 500 ml @ 20 mls/hr 1T@18 IV Last administered on 18:47; Start 07/11/16 at 18:00; Stop 07/12/16 at 17:59; Status DC Fat Emulsion Intravenous 500 ml @ 20 mls/hr 1T@18 IV Last administered on 18:19; Start 07/12/16 at 18:00; Stop 07/13/16 at 17:59; Status DC Fat Emulsion Intravenous 500 ml @ 20 mls/hr 1T@18 IV Last administered on 18:14; Start 07/13/16 at 18:00; Stop 07/14/16 at 17:59; Status DC Fat Emulsion Intravenous 500 ml @ 20 mls/hr 1T@18 IV Last administered on 18:26; Start 07/14/16 at 18:00; Stop 07/15/16 at 17:59; Status DC Fat Emulsion Intravenous 500 ml @ 20 mls/hr 1T@18 IV Last administered on 18:00; Start 07/15/16 at 18:00; Stop 07/15/16 at 19:58; Status DC Fat Emulsion Intravenous 500 ml @ 20 mls/hr ONCE@1800 IV Last administered on 07/18/16 15:10; Start 07/18/16 at 18:00; Stop 07/19/16 at 17:59; Status DC Fat Emulsion Intravenous 500 ml @ 20 mls/hr ONCE@1800 IV Last administered on 07/19/16 17:42; Start 07/19/16 at 18:00; Stop 07/20/16 at 17:59 Fat Emulsion Intravenous 500 ml @ 20 mls/hr ONCE@1800 IV Last administered on 07/16/16 17:29; Start 07/16/16 at 18:00; Stop 07/17/16 at 17:59; Status DC Fat Emulsion Intravenous 500 ml @ 20 mls/hr ONCE@1800 IV Last administered on 07/17/16 16:05; Start 07/17/16 at 18:00; Stop 07/18/16 at 17:59; Status DC Fentanyl Citrate (Sublimaze) 25 mcg Q5MP PRN IV MODERATE PAIN (PS 4-7); Start 07/15/16 at 20:15; Stop 07/15/16 at 21:15; Status DC Glucagon (Glucagon) 1 mg ASDIRECTED PRN SC SEE LABEL COMMENTS; Start 07/08/16 at 16:00; Stop 08/07/16 at 15:59 Glucose (Glucose) 16 GM ASDIRECTED PRN PO SEE LABEL COMMENTS; Start 07/08/16 at 16:00; Stop 08/07/16 at 15:59 Heparin Sodium (Heparin (Flush)) 200 units ASDIRECTED PRN IV SEE LABEL COMMENTS Last administered on 07/19/16 21:25; Start 07/14/16 at 03:15; Stop 08/13 at 03:14 Heparin Sodium (Heparin (Flush)) 200 units PICC IV Last administered on 04:39; Start 07/14/16 at 06:00; Stop 08/13/16 at 05:59 Home Med (Med Rec Complete!) ASDIRECTED XX ; Start 07/08/16 at 15:15; Stop at 15:15; Status DC Hydrochlorothiazide (Hydrodiuril) 25 mg DAILY PO Last administered on 07/10/16 08:10; Start 07/09/16 at 09:00; Stop 07/11/16 at 07:29; Status DC Hydromorphone HCl (Dilaudid) 0.4 mg Q5MP PRN IV MODERATE/SEVERE PAIN (PS 7-10) Last administered on 07/15/16 22:45; Start 07/15/16 at 20:15; Stop 07/15/16 at 23: 59; Status DC Insulin Human Lispro (HumaLOG INSULIN) SEE PROTOCOL TABLE AC SC Last administered on 07/10/16 12:01; Start 07/08/16 at 17:30; Stop 07/11/16 at 11:55; Status DC Insulin Human Lispro (HumaLOG INSULIN) SEE PROTOCOL TABLE Q6H SC Last administered on 07/20/16 05:32; Start 07/11/16 at 12:00; Stop 08/10/16 at 11:59 Insulin Human Lispro (HumaLOG INSULIN) See Protocol Table Q6H SC ; Start at 18:00; Stop 07/18/16 at 15:00; Status Cancel Ketorolac Tromethamine (ToRADol) 30 mg Q6H IV Last administered on 07/20/16 03 :24; Start 07/15/16 at 22:00; Stop 07/20/16 at 21:59 Lactated Ringer's 1,000 ml @ 100 mls/hr Q10H IV ; Start 07/15/16 at 20:15; Stop 07/15/16 at 21:15; Status DC Lactated Ringer's 1,000 ml @ 125 mls/hr Q8H IV Last administered on 07/11/16 08:23; Start 07/08/16 at 15:53; Stop 07/11/16 at 11:34; Status DC Lactated Ringer's 1,000 ml @ 200 mls/hr Q5H IV Last administered on 07/16/16 13:20; Start 07/16/16 at 08:15; Stop 07/16/16 at 17:40; Status DC Lisinopril (Prinivil) 40 mg DAILY PO Last administered on 07/19/16 10:20; Start 07/09/16 at 09:00; Stop 08/08/16 at 08:59; Status Future hold Metoclopramide HCl (REGLAN INJection) 10 mg Q6HP PRN IV NAUSEA OR VOMITING; Start 07/15/16 at 20:15; Stop 07/15/16 at 21:15; Status DC Metronidazole 500 mg/IV Miscellaneous Supplies 100 ml @ 100 mls/hr Q8H IV Last administered on 07/15/16 12:10; Start 07/08/16 at 20:00; Stop 07/15/16 at 23 :11; Status DC Metronidazole 500 mg/IV Miscellaneous Supplies 100 ml @ 100 mls/hr Q8H IV Last administered on 07/20/16 07:52; Start 07/16/16 at 00:00; Stop 07/23/16 at 00:00 Midazolam HCl (Versed) 1 mg ASDIRECTED PRN IV ANXIETY Last administered on 20:20; Start 07/15/16 at 20:30; Stop 07/15/16 at 21:30; Status DC Morphine Sulfate (Morphine Sulfate Inj) 5 mg Q2HP PRN IV SEVERE PAIN (PS 8-10) Last administered on 07/20/16 07:52; Start 07/15/16 at 20:15; Stop 07/22/16 at 20:14 Multivitamins 10 ml/Chromium/ Copper/Manganese/ Seleni/Zn 1 ml/ Amino Ac/ Electrol/ Dextrose/Calcium 2,011 ml @ 75 mls/hr 1T@18 IV Last administered on 07/15/16 18:00; Start 07/15/16 at 18:00; Stop 07/15/16 at 19:58; Status DC Multivitamins 10 ml/Chromium/ Copper/Manganese/ Seleni/Zn 1 ml/ Amino Ac/ Electrol/ Dextrose/Calcium 2,011 ml @ 90 mls/hr ONCE@1800 IV Last administered on 07/17/16 16:05; Start 07/17/16 at 18:00; Stop 07/18/16 at 17:59; Status DC Ondansetron HCl (ZOFRAN INJection) 4 mg Q4HP PRN IV NAUSEA OR VOMITING; Start 07/15/16 at 20:15; Stop 07/15/16 at 21:15; Status DC Ondansetron HCl (ZOFRAN INJection) 4 mg Q6HP PRN IV NAUSEA OR VOMITING; Start 07/08/16 at 16:00; Stop 08/07/16 at 15:59 Oxycodone/ Acetaminophen (Percocet 5mg/ 325mg Tablet) 1 tab ASDIRECTED PRN PO MODERATE PAIN (PS 4-7); Start 07/15/16 at 20:15; Stop 07/15/16 at 21:15; Status DC Pantoprazole Sodium (Protonix) 40 mg DAILY IV Last administered on 07/19/16 09 :44; Start 07/09/16 at 09:00; Stop 08/08/16 at 08:59 Simvastatin (Zocor) 80 mg DAILY PO Last administered on 07/11/16 09:44; Start 07/10/16 at 09:00; Stop 07/11/16 at 11:34; Status DC Sodium Chloride (Saline Lock Flush) 10 ML PICC IV Last administered on 04:39; Start 07/14/16 at 06:00; Stop 08/13/16 at 05:59 Sodium Chloride (Saline Lock Flush) 10ML ASDIRECTED PRN IV SEE LABEL COMMENTS Last administered on 07/19/16 21:25; Start 07/14/16 at 03:15; Stop 08/13/16 at 03 :14 Terazosin HCl (Hytrin) 5 mg DAILY PO Last administered on 07/19/16 09:42; Start 07/09/16 at 09:00; Stop 08/08/16 at 08:59 Tiotropium Howard (Spiriva Handihaler) 1 inhalation DAILY@08 INH Last administered on 07/20/16 07:12; Start 07/09/16 at 08:00; Stop 08/08/16 at 07:59 Allergies Coded Allergies: No Known Drug Allergy (Verified Allergy, Unknown, 05/15/12) Amitriptyline (Unverified Adverse Reaction, Unknown, seizures, 07/08/16) Objective Physical Examination Examination GENERAL APPEARANCE:Patient seen, laying in bed, awake, alert, and oriented. Comfortable, in no acute distress. SKIN: Warm and moist. HEENT: Normocephalic, atraumatic. Thebes palpebral conjunctiva, anicteric sclerae. Lips and mucosa appear moist. NECK: Supple, no thyromegaly. No obvious jugular venous distention. LUNGS: Clear to auscultation bilaterally. No wheezing appreciated. HEART: No chest wall abnormalities. Regular rate and rhythm with no murmurs appreciated. ABDOMEN: Abdomen is mildly distended, soft, round, protuberant.There is a hint of blanching erythema at the midline incision though not cellulitic in appearance, tender around right davina drain site and lateral to colostomy. Colostomy is functioning with air and black colored liquid stool. Colostomy is pale appearing and moderately swollen, no bleeding, no necrosis. DAVINA drains are serous. EXTREMITIES: No edema identified. Vital Signs Vital Signs Date Time Temp Pulse Resp B/P (MAP) Pulse Ox O2 Delivery O2 Flow Rate FiO2 07/20/16 07:52 18 96 Room Air 07/20/16 06:00 98.7 84 136/65 (88) 07/19/16 00:00 I&Os I&O- Last 24 Hours up to 6 AM 07/20/16 06:00 Intake Total 3130 ml Output Total 2305 ml Balance 825 ml DAVINA drains put out 30 and 35 MLS overnight both putting out serous fluid Colostomy put out 500 MLS overnight Laboratory Data Labs 24H Laboratory Tests 2 07/19/16 11:43: Bedside Glucose (Misc Panel) 218H 07/19/16 17:34: Bedside Glucose (Misc Panel) 185H 07/19/16 23:30: Bedside Glucose (Misc Panel) 192H 07/20/16 04:42: Anion Gap 6L, Glomerular Filtration Rate > 60.0, Blood Urea Nitrogen 15, Creatinine 0.79, Sodium Level 140, Potassium Level 4.6, Chloride Level 105, Carbon Dioxide Level 29, Calcium Level 8.3L CBC/BMP Laboratory Tests 07/20/16 04:42 Red Blood Count 3.26 L, Mean Corpuscular Volume 93.1, Mean Corpuscular Hemoglobin 31.5, Mean Corpuscular Hemoglobin Concent 33.8, Red Cell Distribution Width 13.1, Calcium Level 8.3 L Impression Distal colon obstruction from an inflammatory process. Pathology still pending. Have spoken to the pathologist past weekend and they did not see any evidence of malignancy in the inflammatory process. We still wait for the final pathology. 2. Malnutrition secondary to poor oral intake from the colon obstruction. He is currently on TPN. He is on clear liquids. I will slowly advance him to solid foods. 3. Continue ambulation. 4. Reviewed meds. Patient on morphine, norco and toradol for pain. 5. D/C DAVINA drain 6. Switch IV cipro and flagyl to oral to cover 14 days. Plan / VTE VTE Prophylaxis Ordered?: Yes Plan / Urinary Catheter Urinary Catheter: D/C Tirado Reason for insertion/continuin: Perioperative CESAR LUJAN MD Jul 20, 2016 08:14
[2016-07-20 10:00] VITALS: BP 169/71
[2016-07-20 14:00] VITALS: BP 130/62
--- NOTE | 2016-07-20 15:20 | IPN ---
DATE: 07/20/2016 SUBJECTIVE: The patient seen and examined in the room today. The patient stated he has increased mobility and is able to walk in the hallway more frequent. Still experiencing abdominal pain but the pain intensity and frequency has been improved in the last few days. The patient was started on a clear liquid diet and tolerated it very well. The patient is currently on TPN. No overnight events reported. OBJECTIVE: VITAL SIGNS: Temperature 98.7, pulse 84, respirations 18, blood pressure is 136/65, pulse oximetry is 94% on room air. GENERAL: No sign of acute distress. Alert and oriented times three. HEENT: Normocephalic, atraumatic. Extraocular movements grossly intact. CARDIOVASCULAR: Positive S1, S2, regular rate. LUNGS: Clear to auscultation bilaterally. ABDOMEN: Surgical dressing over the whole abdomen. Ostomy bag located toward the left side of the abdomen. Two drainage tubes noted and serous fluid noted in the collecting tube. Abdomen is soft. EXTREMITIES: No edema. No sign of cyanosis. LABORATORY DATA: WBC 7.5, hemoglobin 10.3, hematocrit 30.4, platelet count is 292. Sodium is 140. Potassium 4.6, chloride is 105. Carbon dioxide 29, BUN is 15, creatinine 0.79. GFR greater than 60. Fasting glucose 228. Calcium is 8.3. Pathology is pending. ASSESSMENT AND PLAN: 1. Colonic mass, status post surgical resection. Today is postoperative day 5. The patient has tolerated a clear liquid diet and the patient is currently on total parenteral nutrition (TPN). Pathology is still pending. Refer postsurgical care to the primary surgical team. 2. Question of history of coronary artery disease. The patient on statins. 3. Diabetes. The patient on sliding scale. Currently, the patient is on clear liquid diet. The patient also has TPN on board. 4. Dyslipidemia. On statins. 5. Chronic obstructive pulmonary disease (COPD). No exacerbation. Breathing comfortably on room air. 6. Obstructive sleep apnea (LOUIS) on continuous positive airway pressure (CPAP). 7. History of hiatal hernia and Caceres's esophagus. On Protonix. 8. History of benign prostatic hypertrophy (BPH). The patient is on terazosin. Tirado catheter has been removed a few days ago. No urinary retention reported. 9. Deep venous thrombosis (DVT) prophylaxis. On Lovenox.
[2016-07-20] MEDS: metroNIDAZOLE (FLAGYL) 500 MG TAB PO SCH ×2 (16:34→20:26)
[2016-07-20 18:00] VITALS: BP 121/60
[2016-07-20] MEDS ORDERED: MULTIVITAMIN -ADULT INJECTION 10 ML, CR/CU/SE/MN/ZN INJ 1 ML in AMINO AC/ELECTROLYTE/DE... IV SCH (18:00)
[2016-07-20] MEDS ORDERED: FAT EMULSION IV 20% 500 ML IV SCH (18:00)
[2016-07-20] MEDS: CIPROFLOXACIN 500 MG TAB PO SCH (18:11)
[2016-07-20 22:00] VITALS: BP 136/77
[2016-07-21] MEDS: NORCO, ANEXSIA 5/325MG TABLET (HYDROcodone/ACETAMINOPHEN) PO PRN ×4 (01:10→22:34)
[2016-07-21 06:00] VITALS: BP 157/77
[2016-07-21] MEDS: SODIUM CHLORIDE 0.9% INJ 10 ML SYR IV SCH ×2 (06:05→18:26)
[2016-07-21] MEDS: CIPROFLOXACIN 500 MG TAB PO SCH ×2 (06:20→18:26)
[2016-07-21] MEDS: MORPHINE 10 MG/ML 1ML VIAL IV PRN ×2 (06:20→10:56)
[2016-07-21 06:36] LABS: MEAN CORPUSCULAR HEMOGLOBIN 31.1 pg (27.0-33.0); MEAN CORPUSCULAR HGB CONC 32.6 g/dl (32.0-36.5); MEAN CORPUSCULAR VOLUME 95.3 fl (80.0-96.0); RED CELL DISTRIBUTION WIDTH 13.1 % (11.5-14.5); WHITE BLOOD COUNT 8.2 K/mm3 (4.0-10.0)
[2016-07-21 07:04] LABS: ANION GAP 6 MEQ/L (8-16); BLOOD UREA NITROGEN 16 MG/DL (7-18); CALCIUM LEVEL 7.9 MG/DL (8.8-10.2); CARBON DIOXIDE LEVEL 28 MEQ/L (21-32); CHLORIDE LEVEL 106 MEQ/L (98-107); CREATININE FOR GFR 0.77 MG/DL (0.70-1.30); GLOMERULAR FILTRATION RATE > 60.0 (>49); GLUCOSE, FASTING 247 MG/DL (80-110); POTASSIUM SERUM 4.6 MEQ/L (3.5-5.1); SODIUM LEVEL 140 MEQ/L (136-145)
[2016-07-21] MEDS: SYMBICORT 160/4.5MCG INHALER 6GM INH SCH ×2 (07:26→19:46)
[2016-07-21] MEDS: TIOTROPIUM INHALER/CAPSULE (SPIRIVA) INH SCH (07:26)
[2016-07-21] MEDS: HumaLOG INSULIN (NovoLOG) PER UNIT SC SCH ×4 (07:44→20:47)
[2016-07-21] MEDS: ASPIRIN 81 MG ENTERIC TAB PO SCH (09:50)
[2016-07-21] MEDS: LISINOPRIL 40 MG TAB PO SCH (09:51)
[2016-07-21] MEDS: POLYVINYL ALCOHOL OPHTH SOLN 15 ML(LIQUITEARS) OU SCH ×3 (09:52→20:59)
[2016-07-21] MEDS: metroNIDAZOLE (FLAGYL) 500 MG TAB PO SCH ×3 (09:52→20:59)
[2016-07-21] MEDS: BRIMONIDINE 0.1% OPHTH SOLN 5 ML OU SCH ×3 (09:52→20:59)
[2016-07-21] MEDS: ENOXAPARIN 40 MG/0.4 ML SYRINGE (J1650) SC SCH (09:52)
[2016-07-21] MEDS: PANTOPRAZOLE 40MG INJ (PROTONIX) (C9113) IV SCH (09:52)
[2016-07-21] MEDS: TERAZOSIN 5 MG CAP PO SCH (09:52)
[2016-07-21] MEDS: SODIUM CHLORIDE 0.9% INJ 10 ML SYR IV PRN ×2 (09:53→10:57)
[2016-07-21 12:00] VITALS: BP 189/98
[2016-07-21 12:21] VITALS: BP 144/76
[2016-07-21 14:00] VITALS: BP 135/61
[2016-07-21 18:00] VITALS: BP 140/66
[2016-07-21 22:00] VITALS: BP 136/65
[2016-07-22] MEDS: SODIUM CHLORIDE 0.9% INJ 10 ML SYR IV SCH ×2 (05:36→17:41)
[2016-07-22] MEDS: NORCO, ANEXSIA 5/325MG TABLET (HYDROcodone/ACETAMINOPHEN) PO PRN (05:38)
[2016-07-22] MEDS: CIPROFLOXACIN 500 MG TAB PO SCH ×2 (05:38→17:41)
[2016-07-22 05:53] LABS: MEAN CORPUSCULAR HEMOGLOBIN 31.2 pg (27.0-33.0); MEAN CORPUSCULAR HGB CONC 33.2 g/dl (32.0-36.5); MEAN CORPUSCULAR VOLUME 93.9 fl (80.0-96.0); RED CELL DISTRIBUTION WIDTH 13.3 % (11.5-14.5); WHITE BLOOD COUNT 9.9 K/mm3 (4.0-10.0)
[2016-07-22 06:00] VITALS: BP 136/73
[2016-07-22 06:10] LABS: ANION GAP 5 MEQ/L (8-16); BLOOD UREA NITROGEN 17 MG/DL (7-18); CALCIUM LEVEL 8.5 MG/DL (8.8-10.2); CARBON DIOXIDE LEVEL 28 MEQ/L (21-32); CHLORIDE LEVEL 102 MEQ/L (98-107); CREATININE FOR GFR 0.82 MG/DL (0.70-1.30); GLOMERULAR FILTRATION RATE > 60.0 (>49); GLUCOSE, FASTING 134 MG/DL (80-110); POTASSIUM SERUM 4.3 MEQ/L (3.5-5.1); SODIUM LEVEL 135 MEQ/L (136-145)
[2016-07-22] MEDS: SYMBICORT 160/4.5MCG INHALER 6GM INH SCH ×2 (07:56→19:42)
[2016-07-22] MEDS: TIOTROPIUM INHALER/CAPSULE (SPIRIVA) INH SCH (07:56)
[2016-07-22] MEDS: metroNIDAZOLE (FLAGYL) 500 MG TAB PO SCH ×3 (08:32→20:32)
[2016-07-22] MEDS: HumaLOG INSULIN (NovoLOG) PER UNIT SC SCH ×4 (08:32→21:00)
[2016-07-22] MEDS: LISINOPRIL 40 MG TAB PO SCH (08:33)
[2016-07-22] MEDS: POLYVINYL ALCOHOL OPHTH SOLN 15 ML(LIQUITEARS) OU SCH ×3 (08:33→20:32)
[2016-07-22] MEDS: BRIMONIDINE 0.1% OPHTH SOLN 5 ML OU SCH ×3 (08:33→20:32)
[2016-07-22] MEDS: OMEPRAZOLE 20 MG CAP PO SCH (08:33)
[2016-07-22] MEDS: ASPIRIN 81 MG ENTERIC TAB PO SCH (08:33)
[2016-07-22] MEDS: TERAZOSIN 5 MG CAP PO SCH (08:33)
--- NOTE | 2016-07-22 10:00 | IPNPDOC ---
Subjective General Date/Time Seen The patient was seen on 07/22/16 at 09:46. Subject Chief Complaint/History The patient is a 66-year-old male admitted with a reason for colon obstruction postoperative day 7 after low anterior resection, colostomy, ileocecal resection with ileocolic anastomosis. He still feels the pain control is not adequate enough. He gets relief from the incisional pain with the morphine and ketorolac IV but he feels that the [place] is not working for him. He denies any nausea. His appetite is good. He is tolerating regular diet. His colostomy is working. He is voiding spontaneously, making adequate urine. He has been afebrile. An issue raised yesterday is how to take care of his colostomy. With his single arm, I realize he will not be able to take care of his colostomy by himself. He reports he lives alone by himself. Current Medications Current Medications Current Medications Acetaminophen (Tylenol Tab) 650 mg Q4HP PRN PO MILD PAIN or TEMP > 101 Last administered on 07/09/16 18:10; Start 07/08/16 at 16:00; Stop 08/07/16 at 15:59 Acetaminophen/ Hydrocodone Bitart ([place], [place] 5/325) 1 tab Q4HP PRN PO MODERATE PAIN (PS 5-7) Last administered on 07/18/16 06:16; Start 07/08/16 at 16:00; Stop 07/22/16 at 09:44; Status DC Acetaminophen/ Hydrocodone Bitart ([place], [place] 5/325) 2 tab Q6HP PRN PO SEVERE PAIN (PS 8-10) Last administered on 07/22/16 05:38; Start 07/08/16 at 16 :00; Stop 07/22/16 at 09:44; Status DC Albuterol Sulfate (Proventil, Ventolin Hfa) 2 puff Q6HP PRN INH sob; Start at 16:00; Stop 08/07/16 at 15:59 Amino Ac/Electrol/ Dextrose/Calcium 1,000 ml @ 75 mls/hr [id number] IV Last administered on 07/13/16 07:55; Start 07/11/16 at 18:00; Stop 07/13/16 at 16:11; Status DC Amino Ac/Electrol/ Dextrose/Calcium 2,000 ml @ 50 mls/hr ONCE@1800 IV Last administered on 07/18/16 15:09; Start 07/18/16 at 18:00; Stop 07/19/16 at 17:59 ; Status DC Amino Ac/Electrol/ Dextrose/Calcium 2,000 ml @ 50 mls/hr ONCE@1800 IV Last administered on 07/19/16 17:42; Start 07/19/16 at 18:00; Stop 07/20/16 at 17:59 ; Status DC Amino Ac/Electrol/ Dextrose/Calcium 2,000 ml @ 75 mls/hr 1T@18 IV Last administered on 07/13/16 18:14; Start 07/13/16 at 18:00; Stop 07/14/16 at 17:59; Status DC Amino Ac/Electrol/ Dextrose/Calcium 2,000 ml @ 75 mls/hr 1T@18 IV Last administered on 07/14/16 18:26; Start 07/14/16 at 18:00; Stop 07/15/16 at 17:59; Status DC Amino Ac/Electrol/ Dextrose/Calcium 2,000 ml @ 90 mls/hr ONCE@1800 IV Last administered on 07/16/16 17:29; Start 07/16/16 at 18:00; Stop 07/17/16 at 17:59; Status DC Artificial Tears ([place] Tears) 1 drop TID OU Last administered on 07/22/16 08: 33; Start 07/08/16 at 21:00; Stop 08/07/16 at 20:59 Aspirin (Ecotrin) 81 mg DAILY PO Last administered on 07/22/16 08:33; Start at 09:00; Stop 08/17/16 at 08:59 Brimonidine Tartrate ([place]phagan P 0.1%) 1 drop TID OU Last administered on 08:33; Start 07/08/16 at 21:00; Stop 08/07/16 at 20:59 Budesonide/ Formoterol Fumarate (Symbicort 160/ 4.5mcg) 2 puff BID INH Last administered on 07/22/16 07:56; Start 07/08/16 at 21:00; Stop 08/07/16 at 20:59 Ciprofloxacin (Cipro) 500 mg BID@06,18 PO Last administered on 07/22/16 05:38 ; Start 07/20/16 at 18:00; Stop 07/27/16 at 17:59 Ciprofloxacin 400 mg/IV Miscellaneous Supplies 200 ml @ 200 mls/hr Q12H IV Last administered on 07/15/16 05:27; Start 07/08/16 at 18:00; Stop 07/15/16 at 23 :11; Status DC Ciprofloxacin 400 mg/IV Miscellaneous Supplies 200 ml @ 200 mls/hr Q12H IV Last administered on 07/20/16 01:09; Start 07/16/16 at 01:00; Stop 07/20/16 at 08:16; Status DC Dextrose (Dextrose 50%) 25 ml ASDIRECTED PRN IV SEE LABEL COMMENTS; Start 07/08 at 16:00; Stop 08/07/16 at 15:59 Enoxaparin Sodium (Lovenox) 40 mg DAILY SC Last administered on 07/21/16 09:52 ; Start 07/09/16 at 09:00; Stop 07/22/16 at 08:59; Status DC Fat Emulsion Intravenous 500 ml @ 20 mls/hr 1T@18 IV Last administered on 18:47; Start 07/11/16 at 18:00; Stop 07/12/16 at 17:59; Status DC Fat Emulsion Intravenous 500 ml @ 20 mls/hr 1T@18 IV Last administered on 18:19; Start 07/12/16 at 18:00; Stop 07/13/16 at 17:59; Status DC Fat Emulsion Intravenous 500 ml @ 20 mls/hr 1T@18 IV Last administered on 18:14; Start 07/13/16 at 18:00; Stop 07/14/16 at 17:59; Status DC Fat Emulsion Intravenous 500 ml @ 20 mls/hr 1T@18 IV Last administered on 18:26; Start 07/14/16 at 18:00; Stop 07/15/16 at 17:59; Status DC Fat Emulsion Intravenous 500 ml @ 20 mls/hr 1T@18 IV Last administered on 18:00; Start 07/15/16 at 18:00; Stop 07/15/16 at 19:58; Status DC Fat Emulsion Intravenous 500 ml @ 20 mls/hr ONCE@1800 IV Last administered on 07/18/16 15:10; Start 07/18/16 at 18:00; Stop 07/19/16 at 17:59; Status DC Fat Emulsion Intravenous 500 ml @ 20 mls/hr ONCE@1800 IV Last administered on 07/19/16 17:42; Start 07/19/16 at 18:00; Stop 07/20/16 at 17:59; Status DC Fat Emulsion Intravenous 500 ml @ 20 mls/hr ONCE@1800 IV Last administered on 07/20/16 18:13; Start 07/20/16 at 18:00; Stop 07/21/16 at 17:59; Status DC Fat Emulsion Intravenous 500 ml @ 20 mls/hr ONCE@1800 IV Last administered on 07/16/16 17:29; Start 07/16/16 at 18:00; Stop 07/17/16 at 17:59; Status DC Fat Emulsion Intravenous 500 ml @ 20 mls/hr ONCE@1800 IV Last administered on 07/17/16 16:05; Start 07/17/16 at 18:00; Stop 07/18/16 at 17:59; Status DC Fentanyl Citrate (Sublimaze) 25 mcg Q5MP PRN IV MODERATE PAIN (PS 4-7); Start 07/15/16 at 20:15; Stop 07/15/16 at 21:15; Status DC Glucagon (Glucagon) 1 mg ASDIRECTED PRN SC SEE LABEL COMMENTS; Start 07/08/16 at 16:00; Stop 08/07/16 at 15:59 Glucose (Glucose) 16 GM ASDIRECTED PRN PO SEE LABEL COMMENTS; Start 07/08/16 at 16:00; Stop 08/07/16 at 15:59 Heparin Sodium (Heparin (Flush)) 200 units ASDIRECTED PRN IV SEE LABEL COMMENTS Last administered on 07/21/16 10:57; Start 07/14/16 at 03:15; Stop 08/13 at 03:14 Heparin Sodium (Heparin (Flush)) 200 units PICC IV Last administered on 05:36; Start 07/14/16 at 06:00; Stop 08/13/16 at 05:59 Home Med (Med Rec Complete!) ASDIRECTED XX ; Start 07/08/16 at 15:15; Stop at 15:15; Status DC Hydrochlorothiazide (Hydrodiuril) 25 mg DAILY PO Last administered on 07/10/16 08:10; Start 07/09/16 at 09:00; Stop 07/11/16 at 07:29; Status DC Hydromorphone HCl (Dilaudid) 0.4 mg Q5MP PRN IV MODERATE/SEVERE PAIN (PS 7-10) Last administered on 07/15/16 22:45; Start 07/15/16 at 20:15; Stop 07/15/16 at 23: 59; Status DC Insulin Human Lispro (HumaLOG INSULIN) SEE PROTOCOL TABLE AC SC Last administered on 07/10/16 12:01; Start 07/08/16 at 17:30; Stop 07/11/16 at 11:55; Status DC Insulin Human Lispro (HumaLOG INSULIN) SEE PROTOCOL TABLE Q6H SC Last administered on 07/20/16 12:50; Start 07/11/16 at 12:00; Stop 07/20/16 at 15:06 ; Status DC Insulin Human Lispro (HumaLOG INSULIN) See Protocol Table AC SC Last administered on 07/22/16 08:32; Start 07/20/16 at 17:30; Stop 08/19/16 at 17:29 Insulin Human Lispro (HumaLOG INSULIN) See Protocol Table Q6H SC ; Start at 18:00; Stop 07/18/16 at 15:00; Status Cancel Insulin Human Lispro (HumaLOG INSULIN) See Protocol Table QHS SC Last administered on 07/20/16 20:33; Start 07/20/16 at 21:00; Stop 08/19/16 at 20:59 Ketorolac Tromethamine (ToRADol) 30 mg Q6H IV Last administered on 07/20/16 16 :33; Start 07/15/16 at 22:00; Stop 07/20/16 at 21:59; Status DC Lactated Ringer's 1,000 ml @ 100 mls/hr Q10H IV ; Start 07/15/16 at 20:15; Stop 07/15/16 at 21:15; Status DC Lactated Ringer's 1,000 ml @ 125 mls/hr Q8H IV Last administered on 07/11/16 08:23; Start 07/08/16 at 15:53; Stop 07/11/16 at 11:34; Status DC Lactated Ringer's 1,000 ml @ 200 mls/hr Q5H IV Last administered on 07/16/16 13:20; Start 07/16/16 at 08:15; Stop 07/16/16 at 17:40; Status DC Lisinopril (Prinivil) 40 mg DAILY PO Last administered on 07/22/16 08:33; Start 07/09/16 at 09:00; Stop 08/08/16 at 08:59; Status Future hold Metoclopramide HCl (REGLAN INJection) 10 mg Q6HP PRN IV NAUSEA OR VOMITING; Start 07/15/16 at 20:15; Stop 07/15/16 at 21:15; Status DC Metronidazole (Flagyl) 500 mg TID PO Last administered on 07/22/16 08:32; Start 07/20/16 at 16:00; Stop 07/27/16 at 15:59 Metronidazole 500 mg/IV Miscellaneous Supplies 100 ml @ 100 mls/hr Q8H IV Last administered on 07/15/16 12:10; Start 07/08/16 at 20:00; Stop 07/15/16 at 23 :11; Status DC Metronidazole 500 mg/IV Miscellaneous Supplies 100 ml @ 100 mls/hr Q8H IV Last administered on 07/20/16 07:52; Start 07/16/16 at 00:00; Stop 07/20/16 at 08:16; Status DC Midazolam HCl (Versed) 1 mg ASDIRECTED PRN IV ANXIETY Last administered on 20:20; Start 07/15/16 at 20:30; Stop 07/15/16 at 21:30; Status DC Morphine Sulfate (Morphine Sulfate Inj) 5 mg Q2HP PRN IV SEVERE PAIN (PS 8-10) Last administered on 07/21/16 10:56; Start 07/15/16 at 20:15; Stop 07/22/16 at 20:14 Multivitamins 10 ml/Chromium/ Copper/Manganese/ Seleni/Zn 1 ml/ Amino Ac/ Electrol/ Dextrose/Calcium 2,011 ml @ 75 mls/hr 1T@18 IV Last administered on 07/15/16 18:00; Start 07/15/16 at 18:00; Stop 07/15/16 at 19:58; Status DC Multivitamins 10 ml/Chromium/ Copper/Manganese/ Seleni/Zn 1 ml/ Amino Ac/ Electrol/ Dextrose/Calcium 2,011 ml @ 75 mls/hr ONCE@1800 IV Last administered on 07/20/16 18:13; Start 07/20/16 at 18:00; Stop 07/21/16 at 17:59 ; Status DC Multivitamins 10 ml/Chromium/ Copper/Manganese/ Seleni/Zn 1 ml/ Amino Ac/ Electrol/ Dextrose/Calcium 2,011 ml @ 90 mls/hr ONCE@1800 IV Last administered on 07/17/16 16:05; Start 07/17/16 at 18:00; Stop 07/18/16 at 17:59; Status DC Omeprazole (PriLOSEC) 20 mg DAILY PO Last administered on 07/22/16 08:33; Start 07/22/16 at 09:00; Stop 08/21/16 at 08:59 Ondansetron HCl (ZOFRAN INJection) 4 mg Q4HP PRN IV NAUSEA OR VOMITING; Start 07/15/16 at 20:15; Stop 07/15/16 at 21:15; Status DC Ondansetron HCl (ZOFRAN INJection) 4 mg Q6HP PRN IV NAUSEA OR VOMITING; Start 07/08/16 at 16:00; Stop 08/07/16 at 15:59 Oxycodone/ Acetaminophen (Percocet 5mg/ 325mg Tablet) 1 tab ASDIRECTED PRN PO MODERATE PAIN (PS 4-7); Start 07/15/16 at 20:15; Stop 07/15/16 at 21:15; Status DC Pantoprazole Sodium (Protonix) 40 mg DAILY IV Last administered on 07/21/16 09 :52; Start 07/09/16 at 09:00; Stop 07/22/16 at 05:51; Status DC Simvastatin (Zocor) 80 mg DAILY PO Last administered on 07/11/16 09:44; Start 07/10/16 at 09:00; Stop 07/11/16 at 11:34; Status DC Sodium Chloride ([place] Flush) 10 ML PICC IV Last administered on 05:36; Start 07/14/16 at 06:00; Stop 08/13/16 at 05:59 Sodium Chloride ([place] Flush) 10ML ASDIRECTED PRN IV SEE LABEL COMMENTS Last administered on 07/21/16 10:57; Start 07/14/16 at 03:15; Stop 08/13/16 at 03 :14 Terazosin HCl (Hytrin) 5 mg DAILY PO Last administered on 07/22/16 08:33; Start 07/09/16 at 09:00; Stop 08/08/16 at 08:59 Tiotropium [place] (Spiriva Handihaler) 1 inhalation DAILY@08 INH Last administered on 07/22/16 07:56; Start 07/09/16 at 08:00; Stop 08/08/16 at 07:59 Allergies Coded Allergies: No Known Drug Allergy (Verified Allergy, Unknown, 05/15/12) Amitriptyline (Unverified Adverse Reaction, Unknown, seizures, 07/08/16) Objective Physical Examination Examination GENERAL APPEARANCE:Patient seen, sitting up on side of bed, awake, alert, and oriented. Comfortable, in no acute distress. SKIN: Warm and moist. HEENT: Normocephalic, atraumatic. [place] palpebral conjunctiva, anicteric sclerae. Lips and mucosa appear moist. NECK: Supple, no thyromegaly. No obvious jugular venous distention. LUNGS: Clear to auscultation bilaterally. No wheezing appreciated. HEART: No chest wall abnormalities. Regular rate and rhythm with no murmurs appreciated. ABDOMEN: Abdomen is round, protuberant, soft, nondistended. Minimal tender on palpation over midline around the incision. I did not see any further redness at the incision. Incision line is clean and dry. [place] are intact. Colostomy is pale, ischemic-appearing, mildly swollen, functioning, no bleeding. Nontender other areas of the abdomen. Vital Signs Vital Signs Date Time Temp Pulse Resp B/P (MAP) Pulse Ox O2 Delivery O2 Flow Rate FiO2 07/22/16 08:33 136/73 07/22/16 06:10 18 07/22/16 06:00 99.0 83 93 07/21/16 22:15 Room Air 07/19/16 00:00 I&Os I&O- Last 24 Hours up to 6 AM 07/22/16 06:00 Intake Total 3460 ml Output Total 3200 ml Balance 260 ml Colostomy 100 ML's Laboratory Data Labs 24H Laboratory Tests 2 07/21/16 11:51: Bedside Glucose (Misc Panel) 339H 07/21/16 16:27: Bedside Glucose (Misc Panel) 289H 07/21/16 20:38: Bedside Glucose (Misc Panel) 222H 07/22/16 05:40: Anion Gap 5L, Glomerular Filtration Rate > 60.0, Blood Urea Nitrogen 17, Creatinine 0.82, Sodium Level 135L, Potassium Level 4.3, Chloride Level 102, Carbon Dioxide Level 28, Calcium Level 8.5L CBC/BMP Laboratory Tests 07/22/16 05:40 Red Blood Count 3.29 L, Mean Corpuscular Volume 93.9, Mean Corpuscular Hemoglobin 31.2, Mean Corpuscular Hemoglobin Concent 33.2, Red Cell Distribution Width 13.3, Calcium Level 8.5 L Impression Postop day 7 after low anterior resection with colostomy, ileocecal resection with ileocolic anastomosis I reviewed his pathology results with him which mainly shows inflammatory findings possibly from diverticulitis. No focus of cancer was found. Main issue at this point is how he would take care of his colostomy once he is ready to go home. Unfortunately he only has one arm. He is also right hand dominant. He will not be able to take care of this by himself. He is aware of the fact and he is realistic about this. He will have PFS talk to him about his options for possibly staying in the halfway facility setting while he has to colostomy. This technically couldn't be reversed. May have to decide to reverse him earlier. The other issue is now pain control. I'll switch the [place] to Percocet and see if he takes is better. I'll also give him some oral NSAIDs. We'll given Celebrex twice twice a day and is scheduled manner. Plan / VTE VTE Prophylaxis Ordered?: Yes Plan / Urinary Catheter Urinary Catheter: D/C [place] Reason for insertion/continuin: Perioperative CESAR LUJAN MD Jul 22, 2016 10:00
[2016-07-22] MEDS: CelecoXIB (CeleBREX) 100 MG CAP PO SCH ×2 (12:05→20:31)
[2016-07-22] MEDS: PERCOCET 5MG/325MG TAB PO PRN ×2 (12:06→20:32)
[2016-07-22 14:00] VITALS: BP 104/50
[2016-07-22 20:50] VITALS: BP 114/65
[2016-07-23] MEDS: PERCOCET 5MG/325MG TAB PO PRN ×4 (02:41→21:50)
[2016-07-23] MEDS: SODIUM CHLORIDE 0.9% INJ 10 ML SYR IV SCH ×2 (05:21→17:30)
[2016-07-23] MEDS: CIPROFLOXACIN 500 MG TAB PO SCH ×2 (05:21→17:29)
[2016-07-23 05:48] LABS: MEAN CORPUSCULAR HEMOGLOBIN 30.5 pg (27.0-33.0); MEAN CORPUSCULAR HGB CONC 32.1 g/dl (32.0-36.5); RED CELL DISTRIBUTION WIDTH 13.2 % (11.5-14.5); WHITE BLOOD COUNT 9.4 K/mm3 (4.0-10.0)
[2016-07-23 06:25] VITALS: BP 137/66
[2016-07-23 06:25] LABS: ANION GAP 6 MEQ/L (8-16); BLOOD UREA NITROGEN 21 MG/DL (7-18); CALCIUM LEVEL 8.1 MG/DL (8.8-10.2); CARBON DIOXIDE LEVEL 28 MEQ/L (21-32); CHLORIDE LEVEL 108 MEQ/L (98-107); CREATININE FOR GFR 0.89 MG/DL (0.70-1.30); GLOMERULAR FILTRATION RATE > 60.0 (>49); GLUCOSE, FASTING 123 MG/DL (80-110); MAGNESIUM LEVEL 1.9 MG/DL (1.8-2.4); POTASSIUM SERUM 4.7 MEQ/L (3.5-5.1); SODIUM LEVEL 142 MEQ/L (136-145)
[2016-07-23] MEDS: TIOTROPIUM INHALER/CAPSULE (SPIRIVA) INH SCH (08:04)
[2016-07-23] MEDS: SYMBICORT 160/4.5MCG INHALER 6GM INH SCH ×2 (08:04→20:17)
[2016-07-23] MEDS: ENOXAPARIN 40 MG/0.4 ML SYRINGE (J1650) SC SCH ×2 (08:53→08:59)
[2016-07-23] MEDS: TERAZOSIN 5 MG CAP PO SCH (08:53)
[2016-07-23] MEDS: CelecoXIB (CeleBREX) 100 MG CAP PO SCH ×2 (08:53→21:50)
[2016-07-23] MEDS: HumaLOG INSULIN (NovoLOG) PER UNIT SC SCH ×4 (08:53→21:00)
[2016-07-23] MEDS: ASPIRIN 81 MG ENTERIC TAB PO SCH (08:54)
[2016-07-23] MEDS: metroNIDAZOLE (FLAGYL) 500 MG TAB PO SCH ×3 (08:54→21:50)
[2016-07-23] MEDS: OMEPRAZOLE 20 MG CAP PO SCH (08:54)
[2016-07-23] MEDS: BRIMONIDINE 0.1% OPHTH SOLN 5 ML OU SCH ×3 (08:55→21:51)
[2016-07-23] MEDS: LISINOPRIL 40 MG TAB PO SCH (08:55)
[2016-07-23] MEDS: POLYVINYL ALCOHOL OPHTH SOLN 15 ML(LIQUITEARS) OU SCH ×3 (08:55→21:51)
[2016-07-23 14:00] VITALS: BP 159/79
[2016-07-23 20:35] VITALS: BP 128/66
[2016-07-24] MEDS: PERCOCET 5MG/325MG TAB PO PRN ×4 (02:48→22:38)
[2016-07-24] MEDS: CIPROFLOXACIN 500 MG TAB PO SCH ×2 (05:16→17:01)
[2016-07-24] MEDS: SODIUM CHLORIDE 0.9% INJ 10 ML SYR IV SCH ×2 (05:17→17:02)
[2016-07-24 05:36] LABS: MEAN CORPUSCULAR HEMOGLOBIN 30.7 pg (27.0-33.0); MEAN CORPUSCULAR HGB CONC 32.7 g/dl (32.0-36.5); MEAN CORPUSCULAR VOLUME 93.9 fl (80.0-96.0); RED CELL DISTRIBUTION WIDTH 13.4 % (11.5-14.5); WHITE BLOOD COUNT 7.8 K/mm3 (4.0-10.0)
[2016-07-24 05:40] VITALS: BP 139/75
[2016-07-24 06:00] LABS: ANION GAP 6 MEQ/L (8-16); BLOOD UREA NITROGEN 24 MG/DL (7-18); CARBON DIOXIDE LEVEL 28 MEQ/L (21-32); CHLORIDE LEVEL 103 MEQ/L (98-107); CREATININE FOR GFR 0.99 MG/DL (0.70-1.30); GLOMERULAR FILTRATION RATE > 60.0 (>49); GLUCOSE, FASTING 158 MG/DL (80-110); POTASSIUM SERUM 4.3 MEQ/L (3.5-5.1); SODIUM LEVEL 137 MEQ/L (136-145)
[2016-07-24] MEDS: TIOTROPIUM INHALER/CAPSULE (SPIRIVA) INH SCH (07:15)
[2016-07-24] MEDS: SYMBICORT 160/4.5MCG INHALER 6GM INH SCH ×2 (07:56→19:47)
[2016-07-24] MEDS: ENOXAPARIN 40 MG/0.4 ML SYRINGE (J1650) SC SCH (08:38)
[2016-07-24] MEDS: BRIMONIDINE 0.1% OPHTH SOLN 5 ML OU SCH ×3 (08:39→22:39)
[2016-07-24] MEDS: HumaLOG INSULIN (NovoLOG) PER UNIT SC SCH ×4 (08:41→21:00)
[2016-07-24] MEDS: ASPIRIN 81 MG ENTERIC TAB PO SCH (08:42)
[2016-07-24] MEDS: CelecoXIB (CeleBREX) 100 MG CAP PO SCH ×2 (08:42→22:38)
[2016-07-24] MEDS: TERAZOSIN 5 MG CAP PO SCH (08:42)
[2016-07-24] MEDS: LISINOPRIL 40 MG TAB PO SCH (08:42)
[2016-07-24] MEDS: POLYVINYL ALCOHOL OPHTH SOLN 15 ML(LIQUITEARS) OU SCH ×3 (08:43→22:39)
[2016-07-24] MEDS: metroNIDAZOLE (FLAGYL) 500 MG TAB PO SCH ×3 (08:43→22:37)
[2016-07-24] MEDS: OMEPRAZOLE 20 MG CAP PO SCH (08:43)
[2016-07-24 14:00] VITALS: BP 127/58
[2016-07-24 21:30] VITALS: BP 132/73
[2016-07-25] MEDS: SODIUM CHLORIDE 0.9% INJ 10 ML SYR IV SCH ×2 (06:12→18:00)
[2016-07-25] MEDS: CIPROFLOXACIN 500 MG TAB PO SCH ×2 (06:12→18:19)
[2016-07-25 06:30] VITALS: BP 159/74
[2016-07-25 06:55] LABS: ANION GAP 6 MEQ/L (8-16); BLOOD UREA NITROGEN 20 MG/DL (7-18); CALCIUM LEVEL 8.4 MG/DL (8.8-10.2); CARBON DIOXIDE LEVEL 27 MEQ/L (21-32); CHLORIDE LEVEL 106 MEQ/L (98-107); CREATININE FOR GFR 0.89 MG/DL (0.70-1.30); GLOMERULAR FILTRATION RATE > 60.0 (>49); GLUCOSE, FASTING 116 MG/DL (80-110); POTASSIUM SERUM 4.4 MEQ/L (3.5-5.1); SODIUM LEVEL 139 MEQ/L (136-145)
[2016-07-25 07:18] LABS: MEAN CORPUSCULAR HEMOGLOBIN 30.8 pg (27.0-33.0); MEAN CORPUSCULAR HGB CONC 32.7 g/dl (32.0-36.5); MEAN CORPUSCULAR VOLUME 94.1 fl (80.0-96.0); RED CELL DISTRIBUTION WIDTH 13.5 % (11.5-14.5); WHITE BLOOD COUNT 6.9 K/mm3 (4.0-10.0)
[2016-07-25] MEDS: TIOTROPIUM INHALER/CAPSULE (SPIRIVA) INH SCH (07:35)
[2016-07-25] MEDS: SYMBICORT 160/4.5MCG INHALER 6GM INH SCH ×2 (07:36→19:55)
[2016-07-25] MEDS: HumaLOG INSULIN (NovoLOG) PER UNIT SC SCH ×4 (08:54→20:16)
[2016-07-25] MEDS: POLYVINYL ALCOHOL OPHTH SOLN 15 ML(LIQUITEARS) OU SCH ×3 (08:54→20:35)
[2016-07-25] MEDS: ENOXAPARIN 40 MG/0.4 ML SYRINGE (J1650) SC SCH (08:54)
[2016-07-25] MEDS: CelecoXIB (CeleBREX) 100 MG CAP PO SCH ×2 (08:55→20:35)
[2016-07-25] MEDS: ASPIRIN 81 MG ENTERIC TAB PO SCH (08:55)
[2016-07-25] MEDS: metroNIDAZOLE (FLAGYL) 500 MG TAB PO SCH ×3 (08:55→20:35)
[2016-07-25] MEDS: OMEPRAZOLE 20 MG CAP PO SCH (08:55)
[2016-07-25] MEDS: LISINOPRIL 40 MG TAB PO SCH (08:55)
[2016-07-25] MEDS: PERCOCET 5MG/325MG TAB PO PRN ×3 (08:56→20:35)
[2016-07-25] MEDS: TERAZOSIN 5 MG CAP PO SCH (08:56)
[2016-07-25] MEDS: BRIMONIDINE 0.1% OPHTH SOLN 5 ML OU SCH ×3 (08:57→20:35)
--- NOTE | 2016-07-25 09:48 | IPNPDOC ---
Subjective General Date/Time Seen The patient was seen on 07/25/16 at 09:44. Subject Chief Complaint/History The patient is a 66-year-old male admitted with a reason for visit colon obstruction POD 10 Low anterior Resection with colostomy, Ileocecal resection with ileocolic anastomosis Doing well, comfortable with current pain regimen. Colostomy working. Waiting to set him up with some help when he gets home. Current Medications Current Medications Current Medications Acetaminophen (Tylenol Tab) 650 mg Q4HP PRN PO MILD PAIN or TEMP > 101 Last administered on 07/09/16 18:10; Start 07/08/16 at 16:00; Stop 08/07/16 at 15:59 Acetaminophen/ Hydrocodone Bitart ([place], Anexsia 5/325) 1 tab Q4HP PRN PO MODERATE PAIN (PS 5-7) Last administered on 07/18/16 06:16; Start 07/08/16 at 16:00; Stop 07/22/16 at 09:44; Status DC Acetaminophen/ Hydrocodone Bitart ([place], Anexsia 5/325) 2 tab Q6HP PRN PO SEVERE PAIN (PS 8-10) Last administered on 07/22/16 05:38; Start 07/08/16 at 16 :00; Stop 07/22/16 at 09:44; Status DC Albuterol Sulfate (Proventil, Ventolin Hfa) 2 puff Q6HP PRN INH sob; Start at 16:00; Stop 08/07/16 at 15:59 Amino Ac/Electrol/ Dextrose/Calcium 1,000 ml @ 75 mls/hr [id number] IV Last administered on 07/13/16 07:55; Start 07/11/16 at 18:00; Stop 07/13/16 at 16:11; Status DC Amino Ac/Electrol/ Dextrose/Calcium 2,000 ml @ 50 mls/hr ONCE@1800 IV Last administered on 07/18/16 15:09; Start 07/18/16 at 18:00; Stop 07/19/16 at 17:59 ; Status DC Amino Ac/Electrol/ Dextrose/Calcium 2,000 ml @ 50 mls/hr ONCE@1800 IV Last administered on 07/19/16 17:42; Start 07/19/16 at 18:00; Stop 07/20/16 at 17:59 ; Status DC Amino Ac/Electrol/ Dextrose/Calcium 2,000 ml @ 75 mls/hr 1T@18 IV Last administered on 07/13/16 18:14; Start 07/13/16 at 18:00; Stop 07/14/16 at 17:59; Status DC Amino Ac/Electrol/ Dextrose/Calcium 2,000 ml @ 75 mls/hr 1T@18 IV Last administered on 07/14/16 18:26; Start 07/14/16 at 18:00; Stop 07/15/16 at 17:59; Status DC Amino Ac/Electrol/ Dextrose/Calcium 2,000 ml @ 90 mls/hr ONCE@1800 IV Last administered on 07/16/16 17:29; Start 07/16/16 at 18:00; Stop 07/17/16 at 17:59; Status DC Artificial Tears ([place] Tears) 1 drop TID OU Last administered on 07/25/16 08: 54; Start 07/08/16 at 21:00; Stop 08/07/16 at 20:59 Aspirin (Ecotrin) 81 mg DAILY PO Last administered on 07/25/16 08:55; Start at 09:00; Stop 08/17/16 at 08:59 Brimonidine Tartrate (Alphagan P 0.1%) 1 drop TID OU Last administered on 08:57; Start 07/08/16 at 21:00; Stop 08/07/16 at 20:59 Budesonide/ Formoterol Fumarate (Symbicort 160/ 4.5mcg) 2 puff BID INH Last administered on 07/25/16 07:36; Start 07/08/16 at 21:00; Stop 08/07/16 at 20:59 Celecoxib (CeleBREX) 200 mg BID PO Last administered on 07/25/16 08:55; Start 07/22/16 at 09:00; Stop 08/21/16 at 08:59 Ciprofloxacin (Cipro) 500 mg BID@06,18 PO Last administered on 07/25/16 06:12 ; Start 07/20/16 at 18:00; Stop 07/27/16 at 17:59 Ciprofloxacin 400 mg/IV Miscellaneous Supplies 200 ml @ 200 mls/hr Q12H IV Last administered on 07/15/16 05:27; Start 07/08/16 at 18:00; Stop 07/15/16 at 23 :11; Status DC Ciprofloxacin 400 mg/IV Miscellaneous Supplies 200 ml @ 200 mls/hr Q12H IV Last administered on 07/20/16 01:09; Start 07/16/16 at 01:00; Stop 07/20/16 at 08:16; Status DC Dextrose (Dextrose 50%) 25 ml ASDIRECTED PRN IV SEE LABEL COMMENTS; Start 07/08 at 16:00; Stop 08/07/16 at 15:59 Enoxaparin Sodium (Lovenox) 40 mg DAILY SC Last administered on 07/25/16 08:54 ; Start 07/09/16 at 09:00; Stop 07/28/16 at 08:59 Fat Emulsion Intravenous 500 ml @ 20 mls/hr 1T@18 IV Last administered on 18:47; Start 07/11/16 at 18:00; Stop 07/12/16 at 17:59; Status DC Fat Emulsion Intravenous 500 ml @ 20 mls/hr 1T@18 IV Last administered on 18:19; Start 07/12/16 at 18:00; Stop 07/13/16 at 17:59; Status DC Fat Emulsion Intravenous 500 ml @ 20 mls/hr 1T@18 IV Last administered on 18:14; Start 07/13/16 at 18:00; Stop 07/14/16 at 17:59; Status DC Fat Emulsion Intravenous 500 ml @ 20 mls/hr 1T@18 IV Last administered on 18:26; Start 07/14/16 at 18:00; Stop 07/15/16 at 17:59; Status DC Fat Emulsion Intravenous 500 ml @ 20 mls/hr 1T@18 IV Last administered on 18:00; Start 07/15/16 at 18:00; Stop 07/15/16 at 19:58; Status DC Fat Emulsion Intravenous 500 ml @ 20 mls/hr ONCE@1800 IV Last administered on 07/18/16 15:10; Start 07/18/16 at 18:00; Stop 07/19/16 at 17:59; Status DC Fat Emulsion Intravenous 500 ml @ 20 mls/hr ONCE@1800 IV Last administered on 07/19/16 17:42; Start 07/19/16 at 18:00; Stop 07/20/16 at 17:59; Status DC Fat Emulsion Intravenous 500 ml @ 20 mls/hr ONCE@1800 IV Last administered on 07/20/16 18:13; Start 07/20/16 at 18:00; Stop 07/21/16 at 17:59; Status DC Fat Emulsion Intravenous 500 ml @ 20 mls/hr ONCE@1800 IV Last administered on 07/16/16 17:29; Start 07/16/16 at 18:00; Stop 07/17/16 at 17:59; Status DC Fat Emulsion Intravenous 500 ml @ 20 mls/hr ONCE@1800 IV Last administered on 07/17/16 16:05; Start 07/17/16 at 18:00; Stop 07/18/16 at 17:59; Status DC Fentanyl Citrate (Sublimaze) 25 mcg Q5MP PRN IV MODERATE PAIN (PS 4-7); Start 07/15/16 at 20:15; Stop 07/15/16 at 21:15; Status DC Glucagon (Glucagon) 1 mg ASDIRECTED PRN SC SEE LABEL COMMENTS; Start 07/08/16 at 16:00; Stop 08/07/16 at 15:59 Glucose (Glucose) 16 GM ASDIRECTED PRN PO SEE LABEL COMMENTS; Start 07/08/16 at 16:00; Stop 08/07/16 at 15:59 Heparin Sodium (Heparin (Flush)) 200 units ASDIRECTED PRN IV SEE LABEL COMMENTS Last administered on 07/21/16 10:57; Start 07/14/16 at 03:15; Stop 08/13 at 03:14 Heparin Sodium (Heparin (Flush)) 200 units PICC IV Last administered on 06:00; Start 07/14/16 at 06:00; Stop 08/13/16 at 05:59 Home Med (Med Rec Complete!) ASDIRECTED XX ; Start 07/08/16 at 15:15; Stop at 15:15; Status DC Hydrochlorothiazide (Hydrodiuril) 25 mg DAILY PO Last administered on 07/10/16 08:10; Start 07/09/16 at 09:00; Stop 07/11/16 at 07:29; Status DC Hydromorphone HCl (Dilaudid) 0.4 mg Q5MP PRN IV MODERATE/SEVERE PAIN (PS 7-10) Last administered on 07/15/16 22:45; Start 07/15/16 at 20:15; Stop 07/15/16 at 23: 59; Status DC Insulin Human Lispro (HumaLOG INSULIN) SEE PROTOCOL TABLE AC SC Last administered on 07/10/16 12:01; Start 07/08/16 at 17:30; Stop 07/11/16 at 11:55; Status DC Insulin Human Lispro (HumaLOG INSULIN) SEE PROTOCOL TABLE Q6H SC Last administered on 07/20/16 12:50; Start 07/11/16 at 12:00; Stop 07/20/16 at 15:06 ; Status DC Insulin Human Lispro (HumaLOG INSULIN) See Protocol Table AC SC Last administered on 07/25/16 08:54; Start 07/20/16 at 17:30; Stop 08/19/16 at 17:29 Insulin Human Lispro (HumaLOG INSULIN) See Protocol Table Q6H SC ; Start at 18:00; Stop 07/18/16 at 15:00; Status Cancel Insulin Human Lispro (HumaLOG INSULIN) See Protocol Table QHS SC Last administered on 07/20/16 20:33; Start 07/20/16 at 21:00; Stop 08/19/16 at 20:59 Ketorolac Tromethamine (ToRADol) 30 mg Q6H IV Last administered on 07/20/16 16 :33; Start 07/15/16 at 22:00; Stop 07/20/16 at 21:59; Status DC Lactated Ringer's 1,000 ml @ 100 mls/hr Q10H IV ; Start 07/15/16 at 20:15; Stop 07/15/16 at 21:15; Status DC Lactated Ringer's 1,000 ml @ 125 mls/hr Q8H IV Last administered on 07/11/16 08:23; Start 07/08/16 at 15:53; Stop 07/11/16 at 11:34; Status DC Lactated Ringer's 1,000 ml @ 200 mls/hr Q5H IV Last administered on 07/16/16 13:20; Start 07/16/16 at 08:15; Stop 07/16/16 at 17:40; Status DC Lisinopril (Prinivil) 40 mg DAILY PO Last administered on 07/25/16 08:55; Start 07/09/16 at 09:00; Stop 08/08/16 at 08:59; Status Future hold Metoclopramide HCl (REGLAN INJection) 10 mg Q6HP PRN IV NAUSEA OR VOMITING; Start 07/15/16 at 20:15; Stop 07/15/16 at 21:15; Status DC Metronidazole (Flagyl) 500 mg TID PO Last administered on 07/25/16 08:55; Start 07/20/16 at 16:00; Stop 07/27/16 at 15:59 Metronidazole 500 mg/IV Miscellaneous Supplies 100 ml @ 100 mls/hr Q8H IV Last administered on 07/15/16 12:10; Start 07/08/16 at 20:00; Stop 07/15/16 at 23 :11; Status DC Metronidazole 500 mg/IV Miscellaneous Supplies 100 ml @ 100 mls/hr Q8H IV Last administered on 07/20/16 07:52; Start 07/16/16 at 00:00; Stop 07/20/16 at 08:16; Status DC Midazolam HCl (Versed) 1 mg ASDIRECTED PRN IV ANXIETY Last administered on 20:20; Start 07/15/16 at 20:30; Stop 07/15/16 at 21:30; Status DC Miscellaneous (Unresolved Clarification Entry) SEE LABEL COMMENTS UNRESOLVED XX ; Start 07/22/16 at 00:01; Stop 07/23/16 at 07:55; Status DC Miscellaneous (Unresolved Clarification Entry) SEE LABEL COMMENTS UNRESOLVED XX ; Start 07/23/16 at 00:01; Stop 08/22/16 at 00:00 Miscellaneous (Unresolved Clarification Entry) SEE LABEL COMMENTS UNRESOLVED XX ; Start 07/23/16 at 00:01; Stop 08/22/16 at 00:00 Morphine Sulfate (Morphine Sulfate Inj) 5 mg Q2HP PRN IV SEVERE PAIN (PS 8-10) Last administered on 07/21/16 10:56; Start 07/15/16 at 20:15; Stop 07/22/16 at 20:14; Status DC Multivitamins 10 ml/Chromium/ Copper/Manganese/ Seleni/Zn 1 ml/ Amino Ac/ Electrol/ Dextrose/Calcium 2,011 ml @ 75 mls/hr 1T@18 IV Last administered on 07/15/16 18:00; Start 07/15/16 at 18:00; Stop 07/15/16 at 19:58; Status DC Multivitamins 10 ml/Chromium/ Copper/Manganese/ Seleni/Zn 1 ml/ Amino Ac/ Electrol/ Dextrose/Calcium 2,011 ml @ 75 mls/hr ONCE@1800 IV Last administered on 07/20/16 18:13; Start 07/20/16 at 18:00; Stop 07/21/16 at 17:59 ; Status DC Multivitamins 10 ml/Chromium/ Copper/Manganese/ Seleni/Zn 1 ml/ Amino Ac/ Electrol/ Dextrose/Calcium 2,011 ml @ 90 mls/hr ONCE@1800 IV Last administered on 07/17/16 16:05; Start 07/17/16 at 18:00; Stop 07/18/16 at 17:59; Status DC Omeprazole (PriLOSEC) 20 mg DAILY PO Last administered on 07/25/16 08:55; Start 07/22/16 at 09:00; Stop 08/21/16 at 08:59 Ondansetron HCl (ZOFRAN INJection) 4 mg Q4HP PRN IV NAUSEA OR VOMITING; Start 07/15/16 at 20:15; Stop 07/15/16 at 21:15; Status DC Ondansetron HCl (ZOFRAN INJection) 4 mg Q6HP PRN IV NAUSEA OR VOMITING; Start 07/08/16 at 16:00; Stop 08/07/16 at 15:59 Oxycodone/ Acetaminophen (Percocet 5mg/ 325mg Tablet) 1 tab ASDIRECTED PRN PO MODERATE PAIN (PS 4-7); Start 07/15/16 at 20:15; Stop 07/15/16 at 21:15; Status DC Oxycodone/ Acetaminophen (Percocet 5mg/ 325mg Tablet) 1 tab Q4HP PRN PO MILD/ MODERATE PAIN (PS 1-7); Start 07/22/16 at 09:45; Stop 07/29/16 at 09:44 Oxycodone/ Acetaminophen (Percocet 5mg/ 325mg Tablet) 2 tab Q4HP PRN PO SEVERE PAIN (PS 8-10) Last administered on 07/25/16 08:56; Start 07/22/16 at 09:45; Stop 07/29/16 at 09:44 Pantoprazole Sodium (Protonix) 40 mg DAILY IV Last administered on 07/21/16 09 :52; Start 07/09/16 at 09:00; Stop 07/22/16 at 05:51; Status DC Simvastatin (Zocor) 80 mg DAILY PO Last administered on 07/11/16 09:44; Start 07/10/16 at 09:00; Stop 07/11/16 at 11:34; Status DC Sodium Chloride (Saline Lock Flush) 10 ML PICC IV Last administered on 06:12; Start 07/14/16 at 06:00; Stop 08/13/16 at 05:59 Sodium Chloride (Saline Lock Flush) 10ML ASDIRECTED PRN IV SEE LABEL COMMENTS Last administered on 07/21/16 10:57; Start 07/14/16 at 03:15; Stop 08/13/16 at 03 :14 Terazosin HCl (Hytrin) 5 mg DAILY PO Last administered on 07/25/16 08:56; Start 07/09/16 at 09:00; Stop 08/08/16 at 08:59 Tiotropium Leoti (Spiriva Handihaler) 1 inhalation DAILY@08 INH Last administered on 07/25/16 07:35; Start 07/09/16 at 08:00; Stop 08/08/16 at 07:59 Allergies Coded Allergies: No Known Drug Allergy (Verified Allergy, Unknown, 05/15/12) Amitriptyline (Unverified Adverse Reaction, Unknown, seizures, 07/08/16) Objective Physical Examination Examination GENERAL APPEARANCE:Patient seen, laying in bed, awake, alert, and oriented. Comfortable, in no acute distress. SKIN: Warm and moist. HEENT: Normocephalic, atraumatic. [place] palpebral conjunctiva, anicteric sclerae. Lips and mucosa appear moist. NECK: Supple, no thyromegaly. No obvious jugular venous distention. LUNGS: Clear to auscultation bilaterally. No wheezing appreciated. HEART: No chest wall abnormalities. Regular rate and rhythm with no murmurs appreciated. ABDOMEN: Abdomen is mild round, soft, nondistended. midline incision, hernán intact, no erythema. Left colostomy mild purplish stable functioning.. EXTREMITIES: right arm surgically absent, rest of extremities normal. Vital Signs Vital Signs Date Time Temp Pulse Resp B/P (MAP) Pulse Ox O2 Delivery O2 Flow Rate FiO2 07/25/16 09:02 Room Air 07/25/16 08:56 18 07/25/16 08:56 159/74 07/25/16 06:30 97.9 68 94 07/19/16 00:00 I&Os I&O- Last 24 Hours up to 6 AM 07/25/16 06:00 Intake Total 2040 ml Output Total 2600 ml Balance -560 ml Laboratory Data Labs 24H Laboratory Tests 2 07/24/16 11:20: Bedside Glucose (Misc Panel) 155H 07/24/16 16:09: Bedside Glucose (Misc Panel) 241H 07/24/16 21:22: Bedside Glucose (Misc Panel) 228H 07/25/16 06:23: Bedside Glucose (Misc Panel) 115 07/25/16 06:29: Anion Gap 6L, Glomerular Filtration Rate > 60.0, Blood Urea Nitrogen 20H, Creatinine 0.89, Sodium Level 139, Potassium Level 4.4, Chloride Level 106, Carbon Dioxide Level 27, Calcium Level 8.4L CBC/BMP Laboratory Tests 07/25/16 06:29 Red Blood Count 3.41 L, Mean Corpuscular Volume 94.1, Mean Corpuscular Hemoglobin 30.8, Mean Corpuscular Hemoglobin Concent 32.7, Red Cell Distribution Width 13.5, Calcium Level 8.4 L Impression POD 10 low anterior resection, colostomy, ileocecal resection with anastomosis pathology just shows inflammation possible diverticulitis At [facility] patient is stable and we are setting him up with some help/ support when he gets home. A neighbor of his is volunteering to help him with colostomy. Plan / VTE VTE Prophylaxis Ordered?: Yes Plan / Urinary Catheter Urinary Catheter: D/C [place] Reason for insertion/continuin: Perioperative CESAR LUJAN MD Jul 25, 2016 09:48
[2016-07-25 12:00] VITALS: BP 131/66
[2016-07-25 14:00] VITALS: BP 131/66
[2016-07-25 22:00] VITALS: BP 136/71
[2016-07-26] MEDS: PERCOCET 5MG/325MG TAB PO PRN ×4 (03:27→22:01)
[2016-07-26] MEDS: CIPROFLOXACIN 500 MG TAB PO SCH (05:34)
[2016-07-26] MEDS: SODIUM CHLORIDE 0.9% INJ 10 ML SYR IV SCH ×2 (05:35→17:02)
[2016-07-26 06:00] VITALS: BP 144/81
[2016-07-26] MEDS: metroNIDAZOLE (FLAGYL) 500 MG TAB PO SCH (08:18)
[2016-07-26] MEDS: LISINOPRIL 40 MG TAB PO SCH (08:18)
[2016-07-26] MEDS: ASPIRIN 81 MG ENTERIC TAB PO SCH (08:18)
[2016-07-26] MEDS: OMEPRAZOLE 20 MG CAP PO SCH (08:18)
[2016-07-26] MEDS: CelecoXIB (CeleBREX) 100 MG CAP PO SCH ×2 (08:18→21:53)
[2016-07-26] MEDS: TERAZOSIN 5 MG CAP PO SCH (08:18)
[2016-07-26] MEDS: HumaLOG INSULIN (NovoLOG) PER UNIT SC SCH ×4 (08:19→21:00)
[2016-07-26] MEDS: ENOXAPARIN 40 MG/0.4 ML SYRINGE (J1650) SC SCH (08:19)
[2016-07-26] MEDS: POLYVINYL ALCOHOL OPHTH SOLN 15 ML(LIQUITEARS) OU SCH ×3 (08:19→21:53)
[2016-07-26] MEDS: BRIMONIDINE 0.1% OPHTH SOLN 5 ML OU SCH ×3 (08:19→21:00)
[2016-07-26] MEDS: SYMBICORT 160/4.5MCG INHALER 6GM INH SCH ×2 (08:39→19:12)
[2016-07-26] MEDS: TIOTROPIUM INHALER/CAPSULE (SPIRIVA) INH SCH (08:39)
--- NOTE | 2016-07-26 10:22 | IPNPDOC ---
Subjective General Date/Time Seen The patient was seen on 07/26/16 at 10:18. Subject Chief Complaint/History The patient is a 66-year-old male admitted for colon obstruction. He is postop day 11 after low anterior resection, colostomy. He continues to do well. He had some problems finding the appropriate colostomy appliance yesterday but was able to finally do so in the colostomy appliance was changed. Otherwise doing well tolerating regular diet. Pain control is adequate. Current Medications Current Medications Current Medications Acetaminophen (Tylenol Tab) 650 mg Q4HP PRN PO MILD PAIN or TEMP > 101 Last administered on 07/09/16 18:10; Start 07/08/16 at 16:00; Stop 08/07/16 at 15:59 Acetaminophen/ Hydrocodone Bitart (Byron, Anexsia 5/325) 1 tab Q4HP PRN PO MODERATE PAIN (PS 5-7) Last administered on 07/18/16 06:16; Start 07/08/16 at 16:00; Stop 07/22/16 at 09:44; Status DC Acetaminophen/ Hydrocodone Bitart (Byron, Anexsia 5/325) 2 tab Q6HP PRN PO SEVERE PAIN (PS 8-10) Last administered on 07/22/16 05:38; Start 07/08/16 at 16 :00; Stop 07/22/16 at 09:44; Status DC Albuterol Sulfate (Proventil, Ventolin Hfa) 2 puff Q6HP PRN INH sob; Start at 16:00; Stop 08/07/16 at 15:59 Amino Ac/Electrol/ Dextrose/Calcium 1,000 ml @ 75 mls/hr [id number] IV Last administered on 07/13/16 07:55; Start 07/11/16 at 18:00; Stop 07/13/16 at 16:11; Status DC Amino Ac/Electrol/ Dextrose/Calcium 2,000 ml @ 50 mls/hr ONCE@1800 IV Last administered on 07/18/16 15:09; Start 07/18/16 at 18:00; Stop 07/19/16 at 17:59 ; Status DC Amino Ac/Electrol/ Dextrose/Calcium 2,000 ml @ 50 mls/hr ONCE@1800 IV Last administered on 07/19/16 17:42; Start 07/19/16 at 18:00; Stop 07/20/16 at 17:59 ; Status DC Amino Ac/Electrol/ Dextrose/Calcium 2,000 ml @ 75 mls/hr 1T@18 IV Last administered on 07/13/16 18:14; Start 07/13/16 at 18:00; Stop 07/14/16 at 17:59; Status DC Amino Ac/Electrol/ Dextrose/Calcium 2,000 ml @ 75 mls/hr 1T@18 IV Last administered on 07/14/16 18:26; Start 07/14/16 at 18:00; Stop 07/15/16 at 17:59; Status DC Amino Ac/Electrol/ Dextrose/Calcium 2,000 ml @ 90 mls/hr ONCE@1800 IV Last administered on 07/16/16 17:29; Start 07/16/16 at 18:00; Stop 07/17/16 at 17:59; Status DC Artificial Tears (Akwa Tears) 1 drop TID OU Last administered on 07/26/16 08: 19; Start 07/08/16 at 21:00; Stop 08/07/16 at 20:59 Aspirin (Ecotrin) 81 mg DAILY PO Last administered on 07/26/16 08:18; Start at 09:00; Stop 08/17/16 at 08:59 Brimonidine Tartrate (Alphagan P 0.1%) 1 drop TID OU Last administered on 08:19; Start 07/08/16 at 21:00; Stop 08/07/16 at 20:59 Budesonide/ Formoterol Fumarate (Symbicort 160/ 4.5mcg) 2 puff BID INH Last administered on 07/26/16 08:39; Start 07/08/16 at 21:00; Stop 08/07/16 at 20:59 Celecoxib (CeleBREX) 200 mg BID PO Last administered on 07/26/16 08:18; Start 07/22/16 at 09:00; Stop 08/21/16 at 08:59 Ciprofloxacin (Cipro) 500 mg BID@06,18 PO Last administered on 07/26/16 05:34 ; Start 07/20/16 at 18:00; Stop 07/26/16 at 09:38; Status DC Ciprofloxacin 400 mg/IV Miscellaneous Supplies 200 ml @ 200 mls/hr Q12H IV Last administered on 07/15/16 05:27; Start 07/08/16 at 18:00; Stop 07/15/16 at 23 :11; Status DC Ciprofloxacin 400 mg/IV Miscellaneous Supplies 200 ml @ 200 mls/hr Q12H IV Last administered on 07/20/16 01:09; Start 07/16/16 at 01:00; Stop 07/20/16 at 08:16; Status DC Dextrose (Dextrose 50%) 25 ml ASDIRECTED PRN IV SEE LABEL COMMENTS; Start 07/08 at 16:00; Stop 08/07/16 at 15:59 Enoxaparin Sodium (Lovenox) 40 mg DAILY SC Last administered on 07/26/16 08:19 ; Start 07/09/16 at 09:00; Stop 07/28/16 at 08:59 Fat Emulsion Intravenous 500 ml @ 20 mls/hr 1T@18 IV Last administered on 18:47; Start 07/11/16 at 18:00; Stop 07/12/16 at 17:59; Status DC Fat Emulsion Intravenous 500 ml @ 20 mls/hr 1T@18 IV Last administered on 18:19; Start 07/12/16 at 18:00; Stop 07/13/16 at 17:59; Status DC Fat Emulsion Intravenous 500 ml @ 20 mls/hr 1T@18 IV Last administered on 18:14; Start 07/13/16 at 18:00; Stop 07/14/16 at 17:59; Status DC Fat Emulsion Intravenous 500 ml @ 20 mls/hr 1T@18 IV Last administered on 18:26; Start 07/14/16 at 18:00; Stop 07/15/16 at 17:59; Status DC Fat Emulsion Intravenous 500 ml @ 20 mls/hr 1T@18 IV Last administered on 18:00; Start 07/15/16 at 18:00; Stop 07/15/16 at 19:58; Status DC Fat Emulsion Intravenous 500 ml @ 20 mls/hr ONCE@1800 IV Last administered on 07/18/16 15:10; Start 07/18/16 at 18:00; Stop 07/19/16 at 17:59; Status DC Fat Emulsion Intravenous 500 ml @ 20 mls/hr ONCE@1800 IV Last administered on 07/19/16 17:42; Start 07/19/16 at 18:00; Stop 07/20/16 at 17:59; Status DC Fat Emulsion Intravenous 500 ml @ 20 mls/hr ONCE@1800 IV Last administered on 07/20/16 18:13; Start 07/20/16 at 18:00; Stop 07/21/16 at 17:59; Status DC Fat Emulsion Intravenous 500 ml @ 20 mls/hr ONCE@1800 IV Last administered on 07/16/16 17:29; Start 07/16/16 at 18:00; Stop 07/17/16 at 17:59; Status DC Fat Emulsion Intravenous 500 ml @ 20 mls/hr ONCE@1800 IV Last administered on 07/17/16 16:05; Start 07/17/16 at 18:00; Stop 07/18/16 at 17:59; Status DC Fentanyl Citrate (Sublimaze) 25 mcg Q5MP PRN IV MODERATE PAIN (PS 4-7); Start 07/15/16 at 20:15; Stop 07/15/16 at 21:15; Status DC Glucagon (Glucagon) 1 mg ASDIRECTED PRN SC SEE LABEL COMMENTS; Start 07/08/16 at 16:00; Stop 08/07/16 at 15:59 Glucose (Glucose) 16 GM ASDIRECTED PRN PO SEE LABEL COMMENTS; Start 07/08/16 at 16:00; Stop 08/07/16 at 15:59 Heparin Sodium (Heparin (Flush)) 200 units ASDIRECTED PRN IV SEE LABEL COMMENTS Last administered on 07/21/16 10:57; Start 07/14/16 at 03:15; Stop 08/13 at 03:14 Heparin Sodium (Heparin (Flush)) 200 units PICC IV Last administered on 05:34; Start 07/14/16 at 06:00; Stop 08/13/16 at 05:59 Home Med (Med Rec Complete!) ASDIRECTED XX ; Start 07/08/16 at 15:15; Stop at 15:15; Status DC Hydrochlorothiazide (Hydrodiuril) 25 mg DAILY PO Last administered on 07/10/16 08:10; Start 07/09/16 at 09:00; Stop 07/11/16 at 07:29; Status DC Hydromorphone HCl (Dilaudid) 0.4 mg Q5MP PRN IV MODERATE/SEVERE PAIN (PS 7-10) Last administered on 07/15/16 22:45; Start 07/15/16 at 20:15; Stop 07/15/16 at 23: 59; Status DC Insulin Human Lispro (HumaLOG INSULIN) SEE PROTOCOL TABLE AC SC Last administered on 07/10/16 12:01; Start 07/08/16 at 17:30; Stop 07/11/16 at 11:55; Status DC Insulin Human Lispro (HumaLOG INSULIN) SEE PROTOCOL TABLE Q6H SC Last administered on 07/20/16 12:50; Start 07/11/16 at 12:00; Stop 07/20/16 at 15:06 ; Status DC Insulin Human Lispro (HumaLOG INSULIN) See Protocol Table AC SC Last administered on 07/26/16 08:19; Start 07/20/16 at 17:30; Stop 08/19/16 at 17:29 Insulin Human Lispro (HumaLOG INSULIN) See Protocol Table Q6H SC ; Start at 18:00; Stop 07/18/16 at 15:00; Status Cancel Insulin Human Lispro (HumaLOG INSULIN) See Protocol Table QHS SC Last administered on 07/20/16 20:33; Start 07/20/16 at 21:00; Stop 08/19/16 at 20:59 Ketorolac Tromethamine (ToRADol) 30 mg Q6H IV Last administered on 07/20/16 16 :33; Start 07/15/16 at 22:00; Stop 07/20/16 at 21:59; Status DC Lactated Ringer's 1,000 ml @ 100 mls/hr Q10H IV ; Start 07/15/16 at 20:15; Stop 07/15/16 at 21:15; Status DC Lactated Ringer's 1,000 ml @ 125 mls/hr Q8H IV Last administered on 07/11/16 08:23; Start 07/08/16 at 15:53; Stop 07/11/16 at 11:34; Status DC Lactated Ringer's 1,000 ml @ 200 mls/hr Q5H IV Last administered on 07/16/16 13:20; Start 07/16/16 at 08:15; Stop 07/16/16 at 17:40; Status DC Lisinopril (Prinivil) 40 mg DAILY PO Last administered on 07/26/16 08:18; Start 07/09/16 at 09:00; Stop 08/08/16 at 08:59; Status Future hold Metoclopramide HCl (REGLAN INJection) 10 mg Q6HP PRN IV NAUSEA OR VOMITING; Start 07/15/16 at 20:15; Stop 07/15/16 at 21:15; Status DC Metronidazole (Flagyl) 500 mg TID PO Last administered on 07/26/16 08:18; Start 07/20/16 at 16:00; Stop 07/26/16 at 09:38; Status DC Metronidazole 500 mg/IV Miscellaneous Supplies 100 ml @ 100 mls/hr Q8H IV Last administered on 07/15/16 12:10; Start 07/08/16 at 20:00; Stop 07/15/16 at 23 :11; Status DC Metronidazole 500 mg/IV Miscellaneous Supplies 100 ml @ 100 mls/hr Q8H IV Last administered on 07/20/16 07:52; Start 07/16/16 at 00:00; Stop 07/20/16 at 08:16; Status DC Midazolam HCl (Versed) 1 mg ASDIRECTED PRN IV ANXIETY Last administered on 20:20; Start 07/15/16 at 20:30; Stop 07/15/16 at 21:30; Status DC Miscellaneous (Unresolved Clarification Entry) SEE LABEL COMMENTS UNRESOLVED XX ; Start 07/22/16 at 00:01; Stop 07/23/16 at 07:55; Status DC Miscellaneous (Unresolved Clarification Entry) SEE LABEL COMMENTS UNRESOLVED XX ; Start 07/23/16 at 00:01; Stop 08/22/16 at 00:00 Miscellaneous (Unresolved Clarification Entry) SEE LABEL COMMENTS UNRESOLVED XX ; Start 07/23/16 at 00:01; Stop 08/22/16 at 00:00 Morphine Sulfate (Morphine Sulfate Inj) 5 mg Q2HP PRN IV SEVERE PAIN (PS 8-10) Last administered on 07/21/16 10:56; Start 07/15/16 at 20:15; Stop 07/22/16 at 20:14; Status DC Multivitamins 10 ml/Chromium/ Copper/Manganese/ Seleni/Zn 1 ml/ Amino Ac/ Electrol/ Dextrose/Calcium 2,011 ml @ 75 mls/hr 1T@18 IV Last administered on 07/15/16 18:00; Start 07/15/16 at 18:00; Stop 07/15/16 at 19:58; Status DC Multivitamins 10 ml/Chromium/ Copper/Manganese/ Seleni/Zn 1 ml/ Amino Ac/ Electrol/ Dextrose/Calcium 2,011 ml @ 75 mls/hr ONCE@1800 IV Last administered on 07/20/16 18:13; Start 07/20/16 at 18:00; Stop 07/21/16 at 17:59 ; Status DC Multivitamins 10 ml/Chromium/ Copper/Manganese/ Seleni/Zn 1 ml/ Amino Ac/ Electrol/ Dextrose/Calcium 2,011 ml @ 90 mls/hr ONCE@1800 IV Last administered on 07/17/16 16:05; Start 07/17/16 at 18:00; Stop 07/18/16 at 17:59; Status DC Omeprazole (PriLOSEC) 20 mg DAILY PO Last administered on 07/26/16 08:18; Start 07/22/16 at 09:00; Stop 08/21/16 at 08:59 Ondansetron HCl (ZOFRAN INJection) 4 mg Q4HP PRN IV NAUSEA OR VOMITING; Start 07/15/16 at 20:15; Stop 07/15/16 at 21:15; Status DC Ondansetron HCl (ZOFRAN INJection) 4 mg Q6HP PRN IV NAUSEA OR VOMITING; Start 07/08/16 at 16:00; Stop 08/07/16 at 15:59 Oxycodone/ Acetaminophen (Percocet 5mg/ 325mg Tablet) 1 tab ASDIRECTED PRN PO MODERATE PAIN (PS 4-7); Start 07/15/16 at 20:15; Stop 07/15/16 at 21:15; Status DC Oxycodone/ Acetaminophen (Percocet 5mg/ 325mg Tablet) 1 tab Q4HP PRN PO MILD/ MODERATE PAIN (PS 1-7); Start 07/22/16 at 09:45; Stop 07/29/16 at 09:44 Oxycodone/ Acetaminophen (Percocet 5mg/ 325mg Tablet) 2 tab Q4HP PRN PO SEVERE PAIN (PS 8-10) Last administered on 07/26/16 09:40; Start 07/22/16 at 09:45; Stop 07/29/16 at 09:44 Pantoprazole Sodium (Protonix) 40 mg DAILY IV Last administered on 07/21/16 09 :52; Start 07/09/16 at 09:00; Stop 07/22/16 at 05:51; Status DC Simvastatin (Zocor) 80 mg DAILY PO Last administered on 07/11/16 09:44; Start 07/10/16 at 09:00; Stop 07/11/16 at 11:34; Status DC Sodium Chloride (Saline Lock Flush) 10 ML PICC IV Last administered on 05:35; Start 07/14/16 at 06:00; Stop 08/13/16 at 05:59 Sodium Chloride (Saline Lock Flush) 10ML ASDIRECTED PRN IV SEE LABEL COMMENTS Last administered on 07/21/16 10:57; Start 07/14/16 at 03:15; Stop 08/13/16 at 03 :14 Terazosin HCl (Hytrin) 5 mg DAILY PO Last administered on 07/26/16 08:18; Start 07/09/16 at 09:00; Stop 08/08/16 at 08:59 Tiotropium Phillips (Spiriva Handihaler) 1 inhalation DAILY@08 INH Last administered on 07/26/16 08:39; Start 07/09/16 at 08:00; Stop 08/08/16 at 07:59 Allergies Coded Allergies: No Known Drug Allergy (Verified Allergy, Unknown, 05/15/12) Amitriptyline (Unverified Adverse Reaction, Unknown, seizures, 07/08/16) Objective Physical Examination Examination GENERAL APPEARANCE:Patient seen, laying in bed, awake, alert, and oriented. Comfortable, in no acute distress. SKIN: Warm and moist. HEENT: Normocephalic, atraumatic. [place] palpebral conjunctiva, anicteric sclerae. Lips and mucosa appear moist. NECK: Supple, no thyromegaly. No obvious jugular venous distention. LUNGS: Clear to auscultation bilaterally. No wheezing appreciated. HEART: No chest wall abnormalities. Regular rate and rhythm with no murmurs appreciated. ABDOMEN: Abdomen is nondistended, soft, round. Lower midline incision with hernán intact, clean and dry without any erythema, healing appropriately. Left colostomy ischemic but stable and functioning. EXTREMITIES: Stable, no edema. Vital Signs Vital Signs Date Time Temp Pulse Resp B/P (MAP) Pulse Ox O2 Delivery O2 Flow Rate FiO2 07/26/16 09:40 18 Room Air 07/26/16 08:18 161/84 07/26/16 06:00 98.4 67 98 I&Os I&O- Last 24 Hours up to 6 AM 07/26/16 06:00 Intake Total 1560 ml Output Total 1950 ml Balance -390 ml Laboratory Data Labs 24H Laboratory Tests 2 07/25/16 11:36: Bedside Glucose (Misc Panel) 148H 07/25/16 13:47: Bedside Glucose (Misc Panel) 194H 07/25/16 16:11: Bedside Glucose (Misc Panel) 199H 07/25/16 20:08: Bedside Glucose (Misc Panel) 191H 07/26/16 07:07: Bedside Glucose (Misc Panel) 162H Impression Postop day 11 low anterior resection, colostomy, ileocecal resection with anastomosis We will discuss progress of his discharge planning with [facility] when they come back tomorrow. Otherwise table. We'll discontinue oral antibiotics at this point. Plan / VTE VTE Prophylaxis Ordered?: Yes Plan / Urinary Catheter Urinary Catheter: D/C [place] Reason for insertion/continuin: Perioperative CESAR LUJAN MD Jul 26, 2016 10:22
[2016-07-26 14:06] VITALS: BP 148/72
[2016-07-26 22:00] VITALS: BP 154/81
[2016-07-26] MEDS: SODIUM CHLORIDE 0.9% INJ 10 ML SYR IV PRN (22:01)
[2016-07-27] MEDS: SODIUM CHLORIDE 0.9% INJ 10 ML SYR IV SCH ×2 (05:26→18:16)
[2016-07-27] MEDS: PERCOCET 5MG/325MG TAB PO PRN ×4 (05:27→18:55)
[2016-07-27 06:00] VITALS: BP 157/84
[2016-07-27] MEDS: SYMBICORT 160/4.5MCG INHALER 6GM INH SCH ×2 (07:12→19:25)
[2016-07-27] MEDS: TIOTROPIUM INHALER/CAPSULE (SPIRIVA) INH SCH (07:12)
[2016-07-27] MEDS: LISINOPRIL 40 MG TAB PO SCH (08:54)
[2016-07-27] MEDS: ASPIRIN 81 MG ENTERIC TAB PO SCH (08:54)
[2016-07-27] MEDS: CelecoXIB (CeleBREX) 100 MG CAP PO SCH ×2 (08:54→21:04)
[2016-07-27] MEDS: OMEPRAZOLE 20 MG CAP PO SCH (08:54)
[2016-07-27] MEDS: ENOXAPARIN 40 MG/0.4 ML SYRINGE (J1650) SC SCH (08:55)
[2016-07-27] MEDS: TERAZOSIN 5 MG CAP PO SCH (08:57)
[2016-07-27] MEDS: BRIMONIDINE 0.1% OPHTH SOLN 5 ML OU SCH ×3 (08:59→21:04)
[2016-07-27] MEDS: HumaLOG INSULIN (NovoLOG) PER UNIT SC SCH ×4 (08:59→20:56)
[2016-07-27] MEDS: POLYVINYL ALCOHOL OPHTH SOLN 15 ML(LIQUITEARS) OU SCH ×3 (08:59→21:05)
[2016-07-27 14:00] VITALS: BP 141/76
[2016-07-27 22:00] VITALS: BP 133/63
[2016-07-28] MEDS: PERCOCET 5MG/325MG TAB PO PRN ×4 (05:12→20:47)
[2016-07-28] MEDS: SODIUM CHLORIDE 0.9% INJ 10 ML SYR IV SCH ×2 (05:13→17:36)
[2016-07-28 06:00] VITALS: BP 144/70
[2016-07-28] MEDS: TIOTROPIUM INHALER/CAPSULE (SPIRIVA) INH SCH (07:20)
[2016-07-28] MEDS: SYMBICORT 160/4.5MCG INHALER 6GM INH SCH ×2 (07:20→19:13)
[2016-07-28] MEDS: POLYVINYL ALCOHOL OPHTH SOLN 15 ML(LIQUITEARS) OU SCH ×3 (07:37→20:49)
[2016-07-28] MEDS: BRIMONIDINE 0.1% OPHTH SOLN 5 ML OU SCH ×3 (07:37→20:49)
[2016-07-28] MEDS: ENOXAPARIN 40 MG/0.4 ML SYRINGE (J1650) SC SCH (07:38)
[2016-07-28] MEDS: HumaLOG INSULIN (NovoLOG) PER UNIT SC SCH ×4 (07:39→20:49)
[2016-07-28] MEDS: ASPIRIN 81 MG ENTERIC TAB PO SCH (07:39)
[2016-07-28] MEDS: LISINOPRIL 40 MG TAB PO SCH (07:39)
[2016-07-28] MEDS: CelecoXIB (CeleBREX) 100 MG CAP PO SCH ×2 (07:39→20:48)
[2016-07-28] MEDS: TERAZOSIN 5 MG CAP PO SCH (07:40)
[2016-07-28] MEDS: OMEPRAZOLE 20 MG CAP PO SCH (07:45)
[2016-07-28 14:00] VITALS: BP 149/78
[2016-07-28 22:00] VITALS: BP 132/58
[2016-07-29] MEDS: PERCOCET 5MG/325MG TAB PO PRN ×4 (05:08→23:14)
[2016-07-29] MEDS: SODIUM CHLORIDE 0.9% INJ 10 ML SYR IV SCH ×2 (05:08→18:00)
[2016-07-29 06:00] VITALS: BP 126/58
[2016-07-29] MEDS: SYMBICORT 160/4.5MCG INHALER 6GM INH SCH ×2 (07:55→20:05)
[2016-07-29] MEDS: TIOTROPIUM INHALER/CAPSULE (SPIRIVA) INH SCH (07:55)
[2016-07-29] MEDS: CelecoXIB (CeleBREX) 100 MG CAP PO SCH ×2 (08:16→23:13)
[2016-07-29] MEDS: ASPIRIN 81 MG ENTERIC TAB PO SCH (08:16)
[2016-07-29] MEDS: LISINOPRIL 40 MG TAB PO SCH (08:16)
[2016-07-29] MEDS: POLYVINYL ALCOHOL OPHTH SOLN 15 ML(LIQUITEARS) OU SCH ×3 (08:17→23:15)
[2016-07-29] MEDS: BRIMONIDINE 0.1% OPHTH SOLN 5 ML OU SCH ×3 (08:18→23:13)
[2016-07-29] MEDS: ENOXAPARIN 40 MG/0.4 ML SYRINGE (J1650) SC SCH (08:20)
[2016-07-29] MEDS: HumaLOG INSULIN (NovoLOG) PER UNIT SC SCH ×4 (08:21→21:00)
[2016-07-29] MEDS: OMEPRAZOLE 20 MG CAP PO SCH (08:32)
[2016-07-29] MEDS: TERAZOSIN 5 MG CAP PO SCH (08:33)
[2016-07-29] MEDS ORDERED: OXYC1TAB23 PO (13:27)
[2016-07-29 14:00] VITALS: BP 142/68
[2016-07-29 20:06] VITALS: O2SAT 96
[2016-07-29 22:00] VITALS: BP 105/52
[2016-07-30] MEDS: PERCOCET 5MG/325MG TAB PO PRN ×2 (05:59→10:36)
[2016-07-30 06:00] VITALS: BP 151/70
[2016-07-30] MEDS: TIOTROPIUM INHALER/CAPSULE (SPIRIVA) INH SCH (07:16)
[2016-07-30] MEDS: SYMBICORT 160/4.5MCG INHALER 6GM INH SCH (07:17)
[2016-07-30 09:53] VITALS: BP 140/66
[2016-07-30] MEDS: TERAZOSIN 5 MG CAP PO SCH (09:53)
[2016-07-30] MEDS: CelecoXIB (CeleBREX) 100 MG CAP PO SCH (09:53)
[2016-07-30] MEDS: OMEPRAZOLE 20 MG CAP PO SCH (09:53)
[2016-07-30] MEDS: ASPIRIN 81 MG ENTERIC TAB PO SCH (09:54)
[2016-07-30] MEDS: BRIMONIDINE 0.1% OPHTH SOLN 5 ML OU SCH (09:54)
[2016-07-30] MEDS: POLYVINYL ALCOHOL OPHTH SOLN 15 ML(LIQUITEARS) OU SCH (09:54)
[2016-07-30] MEDS: ENOXAPARIN 40 MG/0.4 ML SYRINGE (J1650) SC SCH (09:55)
[2016-07-30] MEDS: HumaLOG INSULIN (NovoLOG) PER UNIT SC SCH (09:56)
[2016-07-30] MEDS: LISINOPRIL 40 MG TAB PO SCH (09:57)
--- NOTE | 2016-08-18 00:35 | ROOPDOC ---
[facility] Report Of Operation Report of Operation DATE OF PROCEDURE: 07/15/16 PREPROCEDURE DIAGNOSES: distal colon obstruction. POSTPROCEDURE DIAGNOSES: distal colon obstruction, rectosigmoid mass. PROCEDURE: Low anterior Resection, Colostomy Limited Right colectomy (Ileocecetomy) with anastomosis SURGEON: Ilana Mosher MD ELECTROTYPER HELPER: Rosalia Hoang MD ANESTHESIA: general. ESTIMATED BLOOD LOSS: Approximately 200 mL. COMPLICATIONS: . REMARKS: Intraoperative Consults with Dr. Luna and Dr. Kelly PROCEDURE NOTE: Patient admitted for distal colon obstruction found to have a large polypoid mass on colonoscopy, remains obstructed. Pathology shows just inflammation, no cancer. He is brought to the OR for low anterior resection. DESCRIPTION OF PROCEDURE: . Patient has been receiving ciprofloxacin and metronidazole perioperatively for the mass like "inflammation". This was continued perioperatively. He is brought to the OR, placed supine on the table. General Endotracheal anesthesia started. He is placed on chad stirrups in a lithotomy position. We attempted laparoscopy a small incision was created over the left upper quadrant area. A Veress needle was inserted insufflation started to pressure of 15 mmHg. Using same incision a 5 mm port was placed under direct vision of laparoscope. On entry into the abdomen the small and large intestine was greatly distended with minimal view afforded to us and not much space afforded to us to work laparoscopically. There were no free fluid noted. Thus the laparoscopic part was immediately terminated. Patient was placed on the Trendelenburg position. A generous lower midline incision created from the symphysis pubis towards about 5 -6 cm above the umbilicus. This was deepened into the fascia as it was opened up under direct vision. A Bookwalter self-retaining retractor was placed. Due to the amount of distention the small bowel was exteriorized and protected with a moist towel. Still with the small bowel removed from the abdomen reverse a whole lot of distention from the colon starting from the cecum which was distended to more than 9 cm. I attempted to decompress the right colon to gain space and get better visualization by performing an appendectomy. The mesoappendix was divided with the LigaSure device the appendix was divided in a controlled fashion. A pursestring suture was placed through the stump of the appendix and 18 Ethiopian nasogastric tube was placed and the cecum and right colon was decompressed with the appendicostomy. After adequate decompression of the cecum the pursestring suture was tied off. At this point we turned our attention towards the rectum. The sigmoid: Was dissected off the lateral wall following the peritoneal reflection this was dissected laterally to gain entry into the mesial:. Patient has narrow rectum. I tried to palpate for the mass and I saw during colonoscopy this was way deep in his pelvis in his lower rectum. I decided at this point to divide the sigmoid colon using a 60 mm echelon stapler with a green load. We then continued dividing the mesal colon as it goes into the rectum. The ureter was identified and dissected away from the rectum. Likewise the mesal colon medially was opened up to gain space medially and laterally. We continued dissecting down to the lower rectum. Due to both the narrowness of his pelvis the distention of the colon it was hard to get down deep in the pelvis to follow the curvature of the sacrum as we dissect down to the mid and distal rectum. Still I was having difficulty gaining adequate margins. Palpating around the area there were hard nodularities within the mesal rectum likewise a hard nodularity anteriorly which I thought was the prostate which was quite nodular and hard spot located I got into the end between the prostate and anterior margin of the distal rectum was able to get around this. There was gentle hardness not really inside the colon but in the mesentery that I could palpate which I felt was encasing the distal rectum. At this point I ask help from the available general surgeons. Dr. Kelly came and helped me by doing the flexible sigmoidoscopy to visualize the distal margin of L4 I marked it. I dissected down to this area. This was quite distal down to the pelvic floor. It was still not clear where the obstruction is coming out from us more of the hardness was at the mesentery. At this point in time Dr. Luna also within the room and asked him to scrub and an palpate inside to verify my findings. On repeat flexible sigmoidoscopy, no definite mass was found intraluminally. But there was some definite hardness more medially encasing the rectum circumferentially seems to be located more at the mesentery. I initially entertained possibility of the prostate extending down causing the obstruction but those able to get in between the prostate and the anterior part of the rectum. Dr. Luna confirm my findings both of a nodular and hard prostate but also off the hard encasement of the mesentery with no definite intraluminal mass found. After discussing the options, I pursued getting down beyond the hardness that I felt. I divided the mesentery at this point both using the LigaSure as well as vascular loads of the echelon stapler. I was able to get a contour TA stapler across the area and fired this and get an adequate enough margin distally. The rectum was removed and sent for specimen. Hemostasis and irrigation was performed. I ran the rest of the bowels including the rest of the large colon. The cecum at this point has again distended to what it was before the decompression and appears with some ischemic appearance. I decided to transect the cecum. The right colon was freed off laterally and we circumferentially dissected towards where it looks healthy at the age ascending colon more towards the hepatic flexure. The hepatic flexure was partially released especially at its lateral and posterior attachments. An ileocolic anastomosis was then fashioned off. The mesentery was repaired using 2-0 Vicryl. The rest of the small bowel was further examined looking for injury and none was found. With the removal of the rectosigmoid as well as the cecum there was adequate space now to return the bowels. I chose an area on the left side of his abdomen at the margins of his rectus were serially incision was created for the colostomy site. The descending colon stump was passed off transabdominally. The abdomen was then closed using one looped PDS in a running fashion. The colostomy matured due to the size of his pannus there was some difficulty in maturing the colostomy where the stump appears slightly dusky and I was maturing it. The colostomy appliance was placed dressings were placed on the incision site and left a 19 Jamal drain in the pelvis as well as by the right side of the colon for monitoring. Patient was then promptly awakened and extubated and brought to recovery in stable CESAR MOSHER MD Jul 15, 2016 14:01
--- NOTE | 2016-08-18 00:42 | DS.PDOC ---
Discharge Summary General Date of Admission July 08, 2016 at 15:53 Date of Discharge July 30, 2016 Attending Physician: CESAR LUJAN MD Specialist/Consultants [facility] Hospitalist Service Discharge Summary PROCEDURES PERFORMED DURING STAY: Low anterior Resection, Colostomy Ileocecal Resection with anastomosis Colonoscopy ADMITTING DIAGNOSES: 1. .Colon Obstruction DISCHARGE DIAGNOSES: 1. .Colon Obstruction from Diverticulitis COMPLICATIONS/CHIEF COMPLAINT: Distal colon obstruction HISTORY OF PRESENT ILLNESS: See HPI HOSPITAL COURSE: . Patient presented himself to the emergency room with increasing abdominal pain and inability to move his bowels. He is found to have evidence for distal colon obstruction. Initially I was able to give him bowel prep and he underwent colonoscopy. Seemed to be a polypoid mass causing the obstruction and this was biopsied. This is located in the fairly distal rectum about 12 cm. Pathology from the biopsy only shows inflammatory process. Patient continues to show obstruction with increasing abdominal distention. Less than was decided he needs surgery and he was taken to the operating room. Initially an attempt at laparoscopy was done due to the abdominal distention this was converted to an open laparotomy. He underwent low anterior resection. Due to the distention of the cecum and the cecum was also divided and an ileocolic anastomosis fashioned. A colostomy was done. Pathology from the surgery shows only diverticulitis. Here a prolonged hospital course mainly from ileus as well as pain control but mainly from social issues as he only has his left arm in he would not be able to take care office colostomy by himself. Thus patient family services was consulted. We looked at his options. Initially there was a neighbor that was volunteering to help him but at the end was not able to. We are able to arrange for the [facility] to send a nurse to help him take care of his colostomy. By the time of discharge she was tolerating food. He is ambulating. His hernán were removed as he was more to 14 days after the surgery on the discharge. DISCHARGE MEDICATIONS: Please see below. ALLERGIES: Please see below. PHYSICAL EXAMINATION ON DISCHARGE: VITAL SIGNS: Please see below. GENERAL: Comfortable HEENT: [place] palpebral conjunctiva NECK: Supple, no jugular venous distention CARDIOVASCULAR EXAMINATION: Regular heart rate and rhythm RESPIRATORY EXAMINATION: Clear to auscultation bilaterally ABDOMINAL EXAMINATION: Round, soft, nondistended. Staple lines intact. Hernán removed. Left-sided colostomy functioning with a mild, dusky stump EXTREMITIES: Right arm is surgically absent SKIN: No rashes NEUROLOGICAL EXAMINATION: Awake alert and oriented PSYCHIATRIC EXAMINATION: Appropriate mood and affect LABORATORY DATA: Please see below. IMAGING: PROGNOSIS: Good ACTIVITY: As tolerated. DIET: . Regular diet DISCHARGE PLAN: DISPOSITION: . Home DISCHARGE INSTRUCTIONS: 1. . Light activity for 2 weeks 2. . Follow up with me in 2 weeks 3. . Arrangements made for visiting nurse to help him with his colostomy DISCHARGE CONDITION: Stable. TIME SPENT ON DISCHARGE: Greater than 40 minutes Vital Signs/I&Os Vital Signs Date Time Temp Pulse Resp B/P (MAP) Pulse Ox O2 Delivery O2 Flow Rate FiO2 07/29/16 09:00 16 07/29/16 09:00 Room Air 07/29/16 08:33 144/69 07/29/16 06:00 97.1 85 96 07/27/16 10:13 0.0 I&O- Last 24 Hours up to 6 AM 07/29/16 06:00 Intake Total 360 ml Output Total 950 ml Balance -590 ml Laboratory Data Labs 24H Laboratory Tests 2 07/28/16 16:47: Bedside Glucose (Misc Panel) 185H 07/28/16 20:36: Bedside Glucose (Misc Panel) 300H 07/29/16 06:20: Bedside Glucose (Misc Panel) 226H FSBS Laboratory Tests Test 07/28/16 16:47 07/28/16 20:36 07/29/16 06:20 Range/Units Bedside Glucose (Misc Panel) 185 300 226 80-115 MG/DL Discharge Medications Scheduled (Mometasone Furoate) 50 Mcg/Act Spr, 220 MCG NA QHS, (Reported) Artificial Tears (Artificial Tears) 1.4 % Guera, 1 DROP OU TID, (Reported) Aspirin (Aspirin) 325 Mg Tab, 325 MG PO DAILY, (Reported) Brimonidine Tartrate 0.1% (Alphagan P) 100 Drop/5 Ml Soln, 1 DROP OU TID, ( Reported) Budesonide/Formoterol (Symbicort 160-4.5 Mcg/Act) 60 Puff/Inhaler Aers, 2 PUFF INH BID, (Reported) Glipizide (Glipizide) 10 Mg Tab, 10 MG PO BID, (Reported) Hydrochlorothiazide (Hydrochlorothiazide) 25 Mg Tab, 25 MG PO DAILY, (Reported) Lisinopril (Lisinopril) 40 Mg Tab, 40 MG PO DAILY, (Reported) Metformin Hydrochloride (Metformin HCl) 1,000 Mg Tab, 1,500 MG PO BID, (Reported ) Omeprazole (Omeprazole) 20 Mg Cap, 20 MG PO BID, (Reported) Simvastatin - High Dose (Zocor) 80 Mg Tab, 80 MG PO DAILY, (Reported) Terazosin HCl (Terazosin HCl) 5 Mg Cap, 5 MG PO DAILY, (Reported) Tiotropium Loyal Monohydrate (Spiriva Handihaler) 18 Mcg Cap, 1 INHALATION INH DAILY, (Reported) Vitamin D (Vitamin D) 1,000 Unit Cap, 1,000 UNIT PO DAILY, (Reported) Zolpidem Tartrate (Ambien) 10 Mg Tab, 10 MG PO QHS, (Reported) Scheduled PRN Albuterol Sulfate (Ventolin Hfa) 200 Puff/8 Gm Aers, 2 PUFF INH Q6H PRN for SHORTNESS OF BREATH, (Reported) Oxycodone/Acetaminophen (Oxycodone/Acetaminophen 5-325 mg) 1 Tab Tab, 1-2 TAB PO Q4HP PRN for pain Allergies Coded Allergies: No Known Drug Allergy (Verified Allergy, Unknown, 05/15/12) Amitriptyline (Unverified Adverse Reaction, Unknown, seizures, 07/08/16) CESAR LUJAN MD Jul 29, 2016 13:22
--- NOTE | 2016-08-18 00:42 | IPNPDOC ---
Subjective General Date/Time Seen The patient was seen on 07/16/16 at 10:55. Subject Chief Complaint/History The patient is a 66-year-old male admitted with a reason for visit of distal colon obstruction. He underwent low anterior resection yesterday. Intraoperative findings show some fixed hard perirectal tissues including the mesentery as the main reason for the obstruction. He was confused when he woke up after surgery. Looks to be oriented well this morning. Reports pain at the incision. There was some misunderstanding about my orders regarding the TPN last night and this was discontinued and he did not have any IV fluids overnight. His urine is concentrated. Current Medications Current Medications Current Medications Acetaminophen (Tylenol Tab) 650 mg Q4HP PRN PO MILD PAIN or TEMP > 101 Last administered on 07/09/16 18:10; Start 07/08/16 at 16:00; Stop 08/07/16 at 15:59 Acetaminophen/ Hydrocodone Bitart (Downing, Anexsia 5/325) 1 tab Q4HP PRN PO MODERATE PAIN (PS 5-7) Last administered on 07/12/16 12:36; Start 07/08/16 at 16 :00; Stop 07/22/16 at 15:59 Acetaminophen/ Hydrocodone Bitart (Downing, Anexsia 5/325) 2 tab Q6HP PRN PO SEVERE PAIN (PS 8-10) Last administered on 07/15/16 06:35; Start 07/08/16 at 16: 00; Stop 07/22/16 at 15:59 Albuterol Sulfate (Proventil, Ventolin Hfa) 2 puff Q6HP PRN INH sob; Start at 16:00; Stop 08/07/16 at 15:59 Amino Ac/Electrol/ Dextrose/Calcium 1,000 ml @ 75 mls/hr [id number] IV Last administered on 07/13/16 07:55; Start 07/11/16 at 18:00; Stop 07/13/16 at 16:11; Status DC Amino Ac/Electrol/ Dextrose/Calcium 2,000 ml @ 75 mls/hr 1T@18 IV Last administered on 07/13/16 18:14; Start 07/13/16 at 18:00; Stop 07/14/16 at 17:59; Status DC Amino Ac/Electrol/ Dextrose/Calcium 2,000 ml @ 75 mls/hr 1T@18 IV Last administered on 07/14/16 18:26; Start 07/14/16 at 18:00; Stop 07/15/16 at 17:59; Status DC Amino Ac/Electrol/ Dextrose/Calcium 2,000 ml @ 90 mls/hr ONCE@1800 IV ; Start 07/16/16 at 18:00; Stop 07/17/16 at 17:59 Artificial Tears (Akwa Tears) 1 drop TID OU Last administered on 07/16/16 08:18 ; Start 07/08/16 at 21:00; Stop 08/07/16 at 20:59 Brimonidine Tartrate (Alphagan P 0.1%) 1 drop TID OU Last administered on 08:18; Start 07/08/16 at 21:00; Stop 08/07/16 at 20:59 Budesonide/ Formoterol Fumarate (Symbicort 160/ 4.5mcg) 2 puff BID INH Last administered on 07/16/16 09:37; Start 07/08/16 at 21:00; Stop 08/07/16 at 20:59 Ciprofloxacin 400 mg/IV Miscellaneous Supplies 200 ml @ 200 mls/hr Q12H IV Last administered on 07/15/16 05:27; Start 07/08/16 at 18:00; Stop 07/15/16 at 23 :11; Status DC Ciprofloxacin 400 mg/IV Miscellaneous Supplies 200 ml @ 200 mls/hr Q12H IV Last administered on 07/16/16 01:10; Start 07/16/16 at 01:00; Stop 07/23/16 at 00 :59 Dextrose (Dextrose 50%) 25 ml ASDIRECTED PRN IV SEE LABEL COMMENTS; Start 07/08 at 16:00; Stop 08/07/16 at 15:59 Enoxaparin Sodium (Lovenox) 40 mg DAILY SC Last administered on 07/16/16 08:17 ; Start 07/09/16 at 09:00; Stop 07/18/16 at 08:59 Fat Emulsion Intravenous 500 ml @ 20 mls/hr 1T@18 IV Last administered on 18:47; Start 07/11/16 at 18:00; Stop 07/12/16 at 17:59; Status DC Fat Emulsion Intravenous 500 ml @ 20 mls/hr 1T@18 IV Last administered on 18:19; Start 07/12/16 at 18:00; Stop 07/13/16 at 17:59; Status DC Fat Emulsion Intravenous 500 ml @ 20 mls/hr 1T@18 IV Last administered on 18:14; Start 07/13/16 at 18:00; Stop 07/14/16 at 17:59; Status DC Fat Emulsion Intravenous 500 ml @ 20 mls/hr 1T@18 IV Last administered on 18:26; Start 07/14/16 at 18:00; Stop 07/15/16 at 17:59; Status DC Fat Emulsion Intravenous 500 ml @ 20 mls/hr 1T@18 IV Last administered on 18:00; Start 07/15/16 at 18:00; Stop 07/15/16 at 19:58; Status DC Fat Emulsion Intravenous 500 ml @ 20 mls/hr ONCE@1800 IV ; Start 07/16/16 at 18: 00; Stop 07/17/16 at 17:59 Fentanyl Citrate (Sublimaze) 25 mcg Q5MP PRN IV MODERATE PAIN (PS 4-7); Start 07/15/16 at 20:15; Stop 07/15/16 at 21:15; Status DC Glucagon (Glucagon) 1 mg ASDIRECTED PRN SC SEE LABEL COMMENTS; Start 07/08/16 at 16:00; Stop 08/07/16 at 15:59 Glucose (Glucose) 16 GM ASDIRECTED PRN PO SEE LABEL COMMENTS; Start 07/08/16 at 16:00; Stop 08/07/16 at 15:59 Heparin Sodium (Heparin (Flush)) 200 units ASDIRECTED PRN IV SEE LABEL COMMENTS ; Start 07/14/16 at 03:15; Stop 08/13/16 at 03:14 Heparin Sodium (Heparin (Flush)) 200 units PICC IV Last administered on 06:16; Start 07/14/16 at 06:00; Stop 08/13/16 at 05:59 Home Med (Med Rec Complete!) ASDIRECTED XX ; Start 07/08/16 at 15:15; Stop at 15:15; Status DC Hydrochlorothiazide (Hydrodiuril) 25 mg DAILY PO Last administered on 07/10/16 08:10; Start 07/09/16 at 09:00; Stop 07/11/16 at 07:29; Status DC Hydromorphone HCl (Dilaudid) 0.4 mg Q5MP PRN IV MODERATE/SEVERE PAIN (PS 7-10) Last administered on 07/15/16 22:45; Start 07/15/16 at 20:15; Stop 07/15/16 at 23: 59; Status DC Insulin Human Lispro (HumaLOG INSULIN) SEE PROTOCOL TABLE AC SC Last administered on 07/10/16 12:01; Start 07/08/16 at 17:30; Stop 07/11/16 at 11:55; Status DC Insulin Human Lispro (HumaLOG INSULIN) SEE PROTOCOL TABLE Q6H SC Last administered on 07/15/16 23:22; Start 07/11/16 at 12:00; Stop 08/10/16 at 11:59 Ketorolac Tromethamine (ToRADol) 30 mg Q6H IV Last administered on 07/16/16 09: 46; Start 07/15/16 at 22:00; Stop 07/20/16 at 21:59 Lactated Ringer's 1,000 ml @ 100 mls/hr Q10H IV ; Start 07/15/16 at 20:15; Stop 07/15/16 at 21:15; Status DC Lactated Ringer's 1,000 ml @ 125 mls/hr Q8H IV Last administered on 07/11/16 08:23; Start 07/08/16 at 15:53; Stop 07/11/16 at 11:34; Status DC Lactated Ringer's 1,000 ml @ 200 mls/hr Q5H IV Last administered on 07/16/16 08:24; Start 07/16/16 at 08:15; Stop 08/15/16 at 08:14 Lisinopril (Prinivil) 40 mg DAILY PO Last administered on 07/14/16 10:12; Start 07/09/16 at 09:00; Stop 08/08/16 at 08:59; Status Future hold Metoclopramide HCl (REGLAN INJection) 10 mg Q6HP PRN IV NAUSEA OR VOMITING; Start 07/15/16 at 20:15; Stop 07/15/16 at 21:15; Status DC Metronidazole 500 mg/IV Miscellaneous Supplies 100 ml @ 100 mls/hr Q8H IV Last administered on 07/15/16 12:10; Start 07/08/16 at 20:00; Stop 07/15/16 at 23 :11; Status DC Metronidazole 500 mg/IV Miscellaneous Supplies 100 ml @ 100 mls/hr Q8H IV Last administered on 07/16/16 08:16; Start 07/16/16 at 00:00; Stop 07/23/16 at 00 :00 Midazolam HCl (Versed) 1 mg ASDIRECTED PRN IV ANXIETY Last administered on 20:20; Start 07/15/16 at 20:30; Stop 07/15/16 at 21:30; Status DC Morphine Sulfate (Morphine Sulfate Inj) 5 mg Q2HP PRN IV SEVERE PAIN (PS 8-10) ; Start 07/15/16 at 20:15; Stop 07/22/16 at 20:14 Multivitamins 10 ml/Chromium/ Copper/Manganese/ Seleni/Zn 1 ml/ Amino Ac/ Electrol/ Dextrose/Calcium 2,011 ml @ 75 mls/hr 1T@18 IV Last administered on 07/15/16 18:00; Start 07/15/16 at 18:00; Stop 07/15/16 at 19:58; Status DC Ondansetron HCl (ZOFRAN INJection) 4 mg Q4HP PRN IV NAUSEA OR VOMITING; Start 07/15/16 at 20:15; Stop 07/15/16 at 21:15; Status DC Ondansetron HCl (ZOFRAN INJection) 4 mg Q6HP PRN IV NAUSEA OR VOMITING; Start 07/08/16 at 16:00; Stop 08/07/16 at 15:59 Oxycodone/ Acetaminophen (Percocet 5mg/ 325mg Tablet) 1 tab ASDIRECTED PRN PO MODERATE PAIN (PS 4-7); Start 07/15/16 at 20:15; Stop 07/15/16 at 21:15; Status DC Pantoprazole Sodium (Protonix) 40 mg DAILY IV Last administered on 07/16/16 08: 17; Start 07/09/16 at 09:00; Stop 08/08/16 at 08:59 Simvastatin (Zocor) 80 mg DAILY PO Last administered on 07/11/16 09:44; Start 07/10/16 at 09:00; Stop 07/11/16 at 11:34; Status DC Sodium Chloride (Saline Lock Flush) 10 ML PICC IV Last administered on 06:16; Start 07/14/16 at 06:00; Stop 08/13/16 at 05:59 Sodium Chloride (Saline Lock Flush) 10ML ASDIRECTED PRN IV SEE LABEL COMMENTS; Start 07/14/16 at 03:15; Stop 08/13/16 at 03:14 Terazosin HCl (Hytrin) 5 mg DAILY PO Last administered on 07/14/16 10:13; Start 07/09/16 at 09:00; Stop 08/08/16 at 08:59 Tiotropium Check (Spiriva Handihaler) 1 inhalation DAILY@08 INH Last administered on 07/16/16 09:37; Start 07/09/16 at 08:00; Stop 08/08/16 at 07:59 Allergies Coded Allergies: No Known Drug Allergy (Verified Allergy, Unknown, 05/15/12) Amitriptyline (Unverified Adverse Reaction, Unknown, seizures, 07/08/16) Objective Physical Examination Examination GENERAL APPEARANCE:[Patient seen, laying in bed, awake, alert, and oriented. Comfortable, in no acute distress]. SKIN: [Warm and moist]. HEENT: [Normocephalic, atraumatic. [place] palpebral conjunctiva, anicteric sclerae. Lips and mucosa appear moist]. NECK: [Supple, no thyromegaly. No obvious jugular venous distention]. LUNGS: [Clear to auscultation bilaterally. No wheezing appreciated]. HEART: [No chest wall abnormalities. Regular rate and rhythm with no murmurs appreciated]. ABDOMEN: Abdomen is , soft, . [No hepatosplenomegaly. No umbilical or groin herniations, nondistended. No noticeable rebound or guarding. No grimacing with palpation. No rebound tenderness. No masses appreciated]. EXTREMITIES: [Extremities have no deformities. No edema identified]. Vital Signs Vital Signs Date Time Temp Pulse Resp B/P (MAP) Pulse Ox O2 Delivery O2 Flow Rate FiO2 6/8/17 09:00 111/65 07/16/16 08:00 97.3 86 18 93 Room Air 07/16/16 06:03 2.0 I&Os I&O- Last 24 Hours up to 6 AM 07/16/16 05:59 Intake Total 4000 ml Output Total 2045 ml Balance 1955 ml Laboratory Data Labs 24H Laboratory Tests 2 07/15/16 11:40: Bedside Glucose (Misc Panel) 228H 07/15/16 19:54: Bedside Glucose (Misc Panel) 371H 07/15/16 20:46: Bedside Glucose (Misc Panel) 367H 07/15/16 23:03: Bedside Glucose (Misc Panel) 295H 07/16/16 05:38: Anion Gap 5L, Glomerular Filtration Rate > 60.0, Blood Urea Nitrogen 17, Creatinine 0.86, Sodium Level 137, Potassium Level 4.8#, Chloride Level 104, Carbon Dioxide Level 28, Calcium Level 7.5L CBC/BMP Laboratory Tests 07/16/16 05:38 Red Blood Count 4.12 L, Mean Corpuscular Volume 91.5, Mean Corpuscular Hemoglobin 31.2, Mean Corpuscular Hemoglobin Concent 34.1, Red Cell Distribution Width 12.8, Calcium Level 7.5 L Impression Colon obstruction Patient underwent low anterior resection. We had to resect the enlarged cecum was well as well as to stenosis at the distal ileum and make an ileocolic anastomosis. He has a and colostomy. He is on the dry side because he didn't have any IV fluids postoperatively. We' ll give him a bolus of normal saline and put him up on 200 ML's and our lactated Ringer's today. We will renew the TPN. Keep the Tirado catheter for today. He is more awake now. He currently is receiving morphine intermittently. 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 I will continue the ciprofloxacin and metronidazole for now. DVT prophylaxis as Lovenox. Continue the NG tube until bowel distention improves. There is still no output in the colostomy all within expected. Colostomy appears mildly dusky but I think this should improve. Plan / VTE VTE Prophylaxis Ordered?: Yes CESAR LUJAN MD Jul 16, 2016 11:16
== END 2016-07-30 12:04 | disposition home or self-care (01) | DRG 330 ==
LOC: M ED 11:26 → M ED INP 15:53 → M MSPAV 16:54 → M ICU 07-15 22:54 → M PCU 07-16 06:24 → M MSPAV 07-19 19:48
PROVIDERS: ADMIT Surgery; ATTEND Internal Medicine
PROC: 0DBN8ZX Excision of Sigmoid Colon, Via Natural or Artificial Opening Endoscopic, Diagnostic (ICD-10-PCS; 2016-07-09)
PROC: 02HV33Z Insertion of Infusion Device into Superior Vena Cava, Percutaneous Approach (ICD-10-PCS; 2016-07-13)
PROC: 0DTJ0ZZ Resection of Appendix, Open Approach (ICD-10-PCS; 2016-07-15)
PROC: 0DTH0ZZ Resection of Cecum, Open Approach (ICD-10-PCS; 2016-07-15)
PROC: 0DTP0ZZ Resection of Rectum, Open Approach (ICD-10-PCS; 2016-07-15)
PROC: 0D1M0Z4 Bypass Descending Colon to Cutaneous, Open Approach (ICD-10-PCS; 2016-07-15)
PROC: 0DJD8ZZ Inspection of Lower Intestinal Tract, Via Natural or Artificial Opening Endoscopic (ICD-10-PCS; 2016-07-15)
PROC: 0D1B0ZK Bypass Ileum to Ascending Colon, Open Approach (ICD-10-PCS; principal; 2016-07-15 07:30)
DX: D12.5 Benign neoplasm of sigmoid colon (principal); K56.60 Unspecified intestinal obstruction; I25.10 Atherosclerotic heart disease of native coronary artery without angina pectoris; E11.9 Type 2 diabetes mellitus without complications; G47.33 Obstructive sleep apnea (adult) (pediatric); G47.00 Insomnia, unspecified; H40.9 Unspecified glaucoma; K21.9 Gastro-esophageal reflux disease without esophagitis; K22.70 Barrett's esophagus without dysplasia; F17.210 Nicotine dependence, cigarettes, uncomplicated; K57.30 Diverticulosis of large intestine without perforation or abscess without bleeding; Z99.89 Dependence on other enabling machines and devices; J44.9 Chronic obstructive pulmonary disease, unspecified; N40.0 Benign prostatic hyperplasia without lower urinary tract symptoms; I10 Essential (primary) hypertension; Z89.201 Acquired absence of right upper limb, unspecified level; Z79.84 Long term (current) use of oral hypoglycemic drugs; Z88.8 Allergy status to other drugs, medicaments and biological substances

== ENCOUNTER → 2016-09-04 | Outpatient (CLI) | payer OTHER ==
[~2016-09-04] MED LIST changes: +ALBU17IN INH; +AMBI10TA PO; +ARTI99.0 OU; +ASPI325T PO; +BRIM1OPD OU; +BUDE180INH INH; +GLIP10TA6 PO; +HYDR25TAB PO; +LISI40TAB PO; +METF10004 PO; +MOME50SP2; +OMEP20CA3 PO; +OXYC1TAB23 PO; +SPIR1CAP INH; +SYMB16INH INH; +TERA5CA PO; +VITA100067 PO; +ZOCO80TA PO
[2016-09-04 12:30] LABS: MEAN CORPUSCULAR HEMOGLOBIN 30.8 pg (27.0-33.0); MEAN CORPUSCULAR HGB CONC 33.4 g/dl (32.0-36.5); MEAN CORPUSCULAR VOLUME 92.1 fl (80.0-96.0); RED CELL DISTRIBUTION WIDTH 13.1 % (11.5-14.5); WHITE BLOOD COUNT 6.8 K/mm3 (4.0-10.0)
[2016-09-04 12:52] LABS: ALBUMIN 4.1 GM/DL (3.2-5.2); ALBUMIN/GLOBULIN RATIO 1.52 (1.00-1.93); ALKALINE PHOSPHATASE 51 U/L (45-117); ALT/SGPT 34 U/L (12-78); ANION GAP 9 MEQ/L (8-16); AST/SGOT 10 U/L (15-37); BILIRUBIN,TOTAL 0.3 MG/DL (0.2-1.0); BLOOD UREA NITROGEN 16 MG/DL (7-18); CARBON DIOXIDE LEVEL 25 MEQ/L (21-32); CHLORIDE LEVEL 107 MEQ/L (98-107); GLOMERULAR FILTRATION RATE > 60.0 (>49); GLUCOSE, FASTING 106 MG/DL (80-110); SODIUM LEVEL 141 MEQ/L (136-145); TOTAL PROTEIN 6.8 GM/DL (6.4-8.2)
== END ==
LOC: M LAB 11:40
PROVIDERS: ATTEND Surgery
DX: K51.412 Inflammatory polyps of colon with intestinal obstruction (principal); Z93.3 Colostomy status

== ENCOUNTER 2020-04-04 11:35 | Inpatient (IN) | payer OTHER, MEDICARE ==
[~2020-04-04] VITALS: Ht 170.2 cm; Wt 83.6 kg
[~2020-04-04 11:35] MED LIST changes: -/MOXI40TA OR; -ARTI99.0 OU; +ASPI-1 PO; -ASPI325T PO; +AVEL1TAB2 OR; +HYDR-3490 PO; -HYDR25TAB PO; +LISI40TA4 PO; -LISI40TAB PO; +OMEP1CAP73 PO; -OMEP20CA3 PO; +PANTOPRAZOLE 40MG TAB (PROTONIX) PO SCH; +POLYOPD OU; -TERA5CA PO; +TERA5CAP3 PO
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
[2020-04-04 12:44] LABS: BASO % 0.3 % (0.0-1.0); EOS % 0.3 % (0.0-3.0); HEMATOCRIT 44.1 % (42.0-52.0); HEMOGLOBIN 14.4 g/dl (13.5-17.5); LYMPH # 0.7 10^3/uL (1.5-5.0); LYMPH % 4.5 % (24.0-44.0); MEAN CORPUSCULAR HEMOGLOBIN 30.3 pg (27.0-33.0); MEAN CORPUSCULAR HGB CONC 32.7 g/dl (32.0-36.5); MEAN CORPUSCULAR VOLUME 92.8 fl (80.0-96.0); MONO # 0.9 10^3/uL (0.0-0.8); MONO % 6.1 % (2.0-8.0); NEUTROPHILS # 12.7 10^3/uL (1.5-8.5); NEUTROPHILS % 87.5 % (36.0-66.0); PLATELET COUNT, AUTOMATED 215 10^3/uL (150-450); RED BLOOD COUNT 4.75 10^6/uL (4.30-6.10); WHITE BLOOD COUNT 14.5 10^3/uL (4.0-10.0)
[2020-04-04 13:14] LABS: ALBUMIN 3.5 GM/DL (3.2-5.2); ALT/SGPT 29 U/L (12-78); BILIRUBIN,DIRECT 0.2 MG/DL (0.0-0.2); BILIRUBIN,TOTAL 0.7 MG/DL (0.2-1.0); CK-MB VALUE MASS 6.7 NG/ML (<3.6); CPK CREATINE PHOSPHOKINASE 250 U/L (39-308); MB/CK RELATIVE INDEX 2.68 (< OR =4); NT-PRO BNP 71 PG/ML (<125); THYROXINE (T4) 9.8 UG/DL (4.5-12.0); TOTAL PROTEIN 6.4 GM/DL (6.4-8.2); TROPONIN I < 0.02 NG/ML (< 0.10)
[2020-04-04] MEDS ORDERED: ACETAMINOPHEN TAB 650MG DOSE (2X325MG) PO ONE (13:25)
--- NOTE | 2020-04-04 13:39 | REP ---
INDICATION: DYSPNEA/COUGH. COMPARISON: 07/08/2016 TECHNIQUE: AP portable seated chest. FINDINGS: Lung decker are hyperinflated. Some basilar interstitial markings and bullous emphysematous changes mid and upper lung zones. Lordotic projection limits evaluation of the posterior lower lung zones. Superimposed patchy infiltrate atelectasis in the right lateral base suggested. No gross effusion. Heart not grossly enlarged. The aorta is mildly tortuous but without aneurysm. Airway intact. No abnormal widening of the mediastinum. Opal symmetric and unchanged. Bones show degenerative changes mid lower thoracic spine. IMPRESSION: 1. Hyperinflation with COPD and some basilar fibrosis with suggested patchy superimposed atelectasis or infiltrate laterally at the right base. No dense consolidation with air bronchograms, definite effusion, cardiomegaly or edema. <Electronically signed by Ari Bolivar > 04/04/20 [id number]
[2020-04-04] MEDS ORDERED: AZITHROMYCIN 250MG TABLET PO ONE (13:45)
[2020-04-04] MEDS ORDERED: PRED10TA2 PO (13:59)
[2020-04-04] MEDS ORDERED: ZITHTAB2 PO (13:59)
[2020-04-04] MEDS ORDERED: COMBIVENT RESPIMAT 100-20MCG INHALER 4GM INH SCH (14:25)
[2020-04-04] MEDS ORDERED: MAALOX 30 ML SUSP *UDC PO PRN (16:20)
[2020-04-04] MEDS ORDERED: ACETAMINOPHEN TAB 650MG DOSE (2X325MG) PO PRN (16:20)
[2020-04-04] MEDS ORDERED: MOM 30ML SUSPENSION UDC PO PRN (16:20)
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
[2020-04-04] MEDS ORDERED: GLUCOSE 4GM CHEW TABLET PO PRN (16:30)
[2020-04-04] MEDS ORDERED: GLUCAGON INJ 1MG VIAL SC PRN (16:30)
[2020-04-04] MEDS ORDERED: DEXTROSE 50% 50 ML SYRINGE IV PRN (16:30)
[2020-04-04] MEDS ORDERED: D31000TA2 PO (16:39)
[2020-04-04] MEDS ORDERED: VITA500T40 PO (16:39)
[2020-04-04] MEDS ORDERED: LANTINJ4 SC (16:39)
[2020-04-04] MEDS ORDERED: TRUS1SOL OU (16:39)
[2020-04-04] MEDS ORDERED: INSUH10VL SC (16:39)
[2020-04-04] MEDS ORDERED: NESI25TA PO (16:39)
[2020-04-04] MEDS ORDERED: METF500T13 PO (16:39)
[2020-04-04] MEDS ORDERED: LOPE1CAP5 PO (16:39)
[2020-04-04] MEDS ORDERED: METF-877 PO (16:39)
[2020-04-04] MEDS ORDERED: DEXT4TAB15 PO (16:39)
[2020-04-04] MEDS ORDERED: OXYC-517 PO (16:39)
[2020-04-04] MEDS ORDERED: VENTAER INH (16:39)
[2020-04-04] MEDS ORDERED: COLA100C5 PO (16:41)
--- NOTE | 2020-04-04 16:48 | HPEPDOC ---
[facility] Medical History & Physical Date of Admission Apr 04, 2020 Date of Service: Apr 04, 2020 History and Physical CHIEF COMPLAINT: Shortness of breath HISTORY OF PRESENT ILLNESS: 69-year-old male history of COPD, diabetes, who presents to the emergency department with increasing shortness of breath over the past few days. Patient found to be in COPD exacerbation and rhinovirus positive likely trigger for the exacerbation. Patient tells me that he gets these exacerbations one to 2 times per year. He is not on home oxygen. He endorses a cough but no productive sputum currently he says he had a clear sputum yesterday. Patient denies any fevers or chills. Denies chest pain or palpitations. He become short of breath on exertion. In the emergency department patient was given 1 dose of azithromycin DuoNeb with some improvement. There is consideration send the patient home from the emergency department however on ambulation patient was noted to desaturate down to 85% and has increased shortness of breath. Patient will be admitted to the medical unit for acute on chronic respiratory failure due to underlying COPD for medical management. PAST MEDICAL/SURGICAL HISTORY: COPD not requiring home oxygen Insulin-dependent diabetes Obstructive sleep apnea Coronary artery disease GERD with Caceres's esophagus BPH Traumatic amputation right arm about 20 years ago Upper endoscopy 2009 showing parasomnias SOCIAL HISTORY: Drinks alcohol socially once every few months on Active daily smoker smokes one to 2 packs per day 50 her pack history Denies illicit drug use FAMILY HISTORY: Reviewed and none contributory to this admission ALLERGIES: Please see below. REVIEW OF SYSTEMS: 10 point review of systems complete all negative otherwise stated in HPI HOME MEDICATIONS: Please see below. PHYSICAL EXAMINATION: Constitutional: Awake and alert, in no apparent distress ENT: Sclera are clear Respiratory: Lungs diminished breath sounds bilaterally with end expiratory wheezing at the bases. No respiratory distress. No use of accessory muscles. Saturating at 91% on 2 L of supplemental oxygen by nasal cannula. Cardiovascular: RRR S1 and S2 are normal, no murmur Gastrointestinal: Abdomen is soft, non distended, non tender, BS present. Musculoskeletal: No lower extremity edema. Right arm surgically absent from a traumatic injury. Neurologic: No focal neurological deficit. Mental Status: A&O x3, normal affect Skin: Warm, dry LABORATORY DATA: See below. IMAGING: See chart MICROBIOLOGY: Please see below. ASSESSMENT/PLAN 69-year-old male history of COPD, diabetes, who presents to the emergency department with increasing shortness of breath over the past few days. Patient found to be in COPD exacerbation and rhinovirus positive likely trigger for the exacerbation. Patient will be admitted to the medical unit for acute on chronic respiratory failure due to underlying COPD for medical management. # Acute hypoxic respiratory failure due to acute on chronic COPD exacerbation: Possibly triggered to underlying rhinovirus infection. Covid negative. Scheduled Duonebs. 5 days prednisone 40mg. incentive spirometry. Doxycycline. Repeat walk test for home oxygen requirements prior to discharge. Fu procalcitonin. Continue home inhalers. # DM: ISS. Frequent Accu-Cheks. Hypoglycemic precautions. Takes Lantus 22 units nightly. Levemir while inpatient. # Coronary artery disease: Aspirin and statin # Hypertension: Continue home meds. Monitor and titrate # GERD with Caceres's esophagus: Continue home PPI # LOUIS: May use own CPAP machine # BPH: Continue home medication # DVT prophylaxis: Lovenox A Yousef Hospitalist Vital Signs Vital Signs Date Time Temp Pulse Resp B/P (MAP) Pulse Ox O2 Delivery O2 Flow Rate FiO2 04/04/20 15:18 106 90 04/04/20 15:15 152/73 (99) 04/04/20 14:10 96.9 22 Nasal Cannula 4.0 Laboratory Data Labs 24H Laboratory Tests 2 04/04/20 12:27: Immature Granulocyte % (Auto) 1.3, Neutrophils (%) (Auto) 87.5H, Lymphocytes (%) (Auto) 4.5L, Monocytes (%) (Auto) 6.1, Eosinophils (%) (Auto) 0.3, Basophils (%) (Auto) 0.3, Neutrophils # (Auto) 12.7H, Lymphocytes # (Auto) 0.7L, Monocytes # (Auto) 0.9H, Eosinophils # (Auto) 0.0, Basophils # (Auto) 0.0, Nucleated Red Blood Cells % (auto) 0.0, Total Bilirubin 0.7, Direct Bilirubin 0.2, Aspartate Amino Transf (AST/SGOT) 9, Alanine Aminotransferase (ALT/SGPT) 29, Alkaline Phosphatase 81, Total Creatine Kinase 250, Creatine Kinase MB 6.7H, Creatine Kinase MB Relative Index 2.68, Troponin I < 0.02, GN-Jsl-S-Type Natriuretic Peptide 71, Total Protein 6.4, Albumin 3.5, Albumin/Globulin Ratio 1.2, Thyroid Stimulating Hormone (TSH) 1.190, Thyroxine (T4) 9.8 04/04/20 12:53: POC Glucose (Misc Panel) 271H, POC Sodium (Misc Panel) 136, POC Potassium (Misc Panel) 4.3, POC Chloride (Misc Panel) 99, POC Total CO2 (Misc Panel) 27.0, POC Blood Urea Nitrogen (Misc Panel 19, POC Ionized Calcium (Misc Panel) 4.8, POC Creatinine (Misc Panel) 1.0, POC Hematocrit (Misc Panel) 43.0 04/04/20 13:01: SARS Antigen (LFIA) NEGATIVE 04/04/20 13:18: POC Total CO2 (Misc Panel) 28.0H, POC pH (Misc Panel) 7.402, POC Base Excess (Misc Panel) 2.0, POC Saturated Percent O2 (Misc) 91L, POC pO2 (Misc Panel) 61.0L, POC pCO2 (Misc Panel) 43.1, POC HCO3 (Misc Panel) 26.8H CBC/BMP Laboratory Tests 04/04/20 12:27 Microbiology Microbiology 04/04/20 Respiratory Virus Panel (PCR) ([facility]) - Final, Complete Human Rhinovirus/Enterovirus Home Medications Scheduled Alogliptin Benzoate (Nesina) 25 Mg Tablet, 25 MG PO DAILY Aspirin (Aspirin) 325 Mg Tab, 325 MG PO DAILY Azithromycin (Zithromax Tri-Roberto) 500 Mg Tablet, 500 MG PO DAILY Budesonide/Formoterol (Symbicort 160-4.5 Mcg Inhaler) 60 Puff/Inhaler Aers, 2 PUFF INH BID Cholecalciferol (Vitamin D3) (Vitamin D3) 1,000 Unit Tablet, 2,000 UNITS PO DAILY Cyanocobalamin (Vitamin B-12) (Vitamin B-12) 500 Mcg Tablet, 500 MCG PO DAILY Dorzolamide HCl (Trusopt) 2% 10ML Drops, 1 DROP OU TID Hydrochlorothiazide (Hydrochlorothiazide) 25 Mg Tab, 12.5 MG PO DAILY Insulin Glargine,Hum.rec.anlog (Lantus Solostar) 100 Unit/1 Ml Insuln.pen, 22 UNITS SC QHS Insulin Human Lispro (Novolog) 100 Unit/1 Ml Vial, 1 DOSE SC AC PER SLIDING SCALE Lisinopril (Lisinopril) 40 Mg Tab, 20 MG PO DAILY Metformin HCl (Metformin HCl) 1,000 Mg Tablet, 1,000 MG PO QPM TAKES WITH DINNER Metformin HCl (Metformin HCl) 500 Mg Tablet, 500 MG PO DAILY TAKES WITH LUNCH Omeprazole (Omeprazole) 20 Mg Cap, 20 MG PO DAILY Prednisone (Prednisone) 10 Mg Tablet, 10 MG PO ASDIRECTED 6 po day 1-3; 5 po day 4-5; 4 po day 6-7; 3 po day 8-9, 2 poday 10-11; 1 po day 12-14 Simvastatin (Zocor) 80 Mg Tab, 80 MG PO DAILY Terazosin HCl (Terazosin HCl) 5 Mg Cap, 5 MG PO DAILY Tiotropium Lena (Spiriva) 18 Mcg Cap, 18 MCG INH DAILY Scheduled PRN Albuterol Sulfate (Ventolin Hfa) 18 Gm Hfa.aer.ad, 2 PUFFS INH QID PRN for SOB/WHEEZING Dextrose (Glucose) 4 Gm Tab.chew, 4 GM PO for LOW BLOOD SUGAR Docusate Sodium (Colace) 100 Mg Capsule, 100 MG PO BID PRN for CONSTIPATION Loperamide HCl (Loperamide) 2 Mg Capsule, 2 MG PO Q6H PRN for DIARRHEA Oxycodone HCl (Oxycodone HCl) 5 Mg Tablet, 5 MG PO Q6H PRN for PAIN Polyvinyl Alcohol (Artificial Tears) 1.4 % Guera, 1 DROP OU TID PRN for DRY EYES Zolpidem Tartrate (Ambien) 10 Mg Tab, 10 MG PO QHS PRN for SLEEP Allergies Coded Allergies: No Known Allergies (Unverified , 04/04/20) A-FIB/CHADSVASC A-FIB History Current/History of A-Fib/PAF?: No FARHAT ALAS MD Apr 04, 2020 16:48
[2020-04-04] MEDS ORDERED: ALBUTEROL 90 MCG/ACT 8GM HFA INHALER INH PRN (16:55)
[2020-04-04] MEDS: NICOTINE 21MG/24HR 1 EA TRANSDERMAL TD SCH (18:12)
[2020-04-04] MEDS: OMEPRAZOLE 20 MG CAP PO SCH (18:13)
[2020-04-04] MEDS: HumaLOG INSULIN (NovoLOG) PER UNIT SC SCH ×2 (18:13→21:05)
[2020-04-04] MEDS: hydroCHLOROthiazide 12.5 MG CAPSULE PO SCH (18:13)
[2020-04-04] MEDS: ASPIRIN 325 MG TAB PO SCH (18:13)
[2020-04-04] MEDS: SIMVASTATIN 40 MG TAB PO SCH (18:13)
[2020-04-04] MEDS: TERAZOSIN 5 MG CAP PO SCH (18:13)
[2020-04-04] MEDS: TIOTROPIUM INHALER/CAPSULE (SPIRIVA) INH SCH (18:39)
--- NOTE | 2020-04-04 19:43 | ECGEPIP ---
[facility] - ED Test Date: 2020-04-04 Pat Name: CASSANDRA GRANGER Department: Room: - Gender: Male Tinter Photograph: edis : 1950 Requested By: Barron Lindsey Order Number: [id number] Reading MD: Zaida Small Measurements Intervals [place] Rate: 106 P: 80 CA: 148 QRS: 68 QRSD: 66 T: 77 QT: 330 QTc: 438 Interpretive Statements Sinus tachycardia increased rate 07/10/16 Electronically Signed on 04-04-2020 19:43:07 EST by Zaida Small
[2020-04-04] MEDS: SYMBICORT 160/4.5MCG INHALER 6GM INH SCH (20:03)
[2020-04-04] MEDS: IPRATROPIUM 0.5MG/ALBUTEROL 2.5MG INH SOL UD 3ML (DUONEB) NEB SCH (20:03)
[2020-04-04] MEDS: DOCUSATE SODIUM 100MG CAPSULE PO SCH (21:03)
[2020-04-04] MEDS: DOXYCYCLINE HYCLATE 100MG TABLET PO SCH (21:03)
[2020-04-04] MEDS: oxyCODONE 5MG TAB PO PRN (21:04)
[2020-04-04] MEDS: LEVEMIR (INSULIN DETEMIR) 1 UNITS/0.01ML SC SCH (21:05)
[2020-04-04 22:00] VITALS: BP 137/80
[2020-04-05] MEDS: IPRATROPIUM 0.5MG/ALBUTEROL 2.5MG INH SOL UD 3ML (DUONEB) NEB SCH ×4 (00:31→19:50)
[2020-04-05 06:00] VITALS: BP_SYST 122; BP_SYST 125; BP_DIAS 66; BP_DIAS 68
[2020-04-05 06:39] LABS: HEMATOCRIT 44.6 % (42.0-52.0); HEMOGLOBIN 14.6 g/dl (13.5-17.5); MEAN CORPUSCULAR HEMOGLOBIN 30.2 pg (27.0-33.0); MEAN CORPUSCULAR HGB CONC 32.7 g/dl (32.0-36.5); MEAN CORPUSCULAR VOLUME 92.1 fl (80.0-96.0); PLATELET COUNT, AUTOMATED 246 10^3/uL (150-450); RED BLOOD COUNT 4.84 10^6/uL (4.30-6.10); WHITE BLOOD COUNT 16.1 10^3/uL (4.0-10.0)
[2020-04-05 07:08] LABS: BLOOD UREA NITROGEN 29 MG/DL (7-18); CALCIUM LEVEL 9.2 MG/DL (8.8-10.2); CARBON DIOXIDE LEVEL 26 MEQ/L (21-32); CHLORIDE LEVEL 103 MEQ/L (98-107); CREATININE FOR GFR 1.13 MG/DL (0.70-1.30); GLOMERULAR FILTRATION RATE > 60.0 (>49); GLUCOSE, FASTING 260 MG/DL (70-100); MAGNESIUM LEVEL 2.3 MG/DL (1.8-2.4); POTASSIUM SERUM 4.6 MEQ/L (3.5-5.1); SODIUM LEVEL 135 MEQ/L (136-145)
[2020-04-05] MEDS: TIOTROPIUM INHALER/CAPSULE (SPIRIVA) INH SCH (07:32)
[2020-04-05] MEDS: SYMBICORT 160/4.5MCG INHALER 6GM INH SCH ×2 (07:32→19:50)
[2020-04-05] MEDS: ENOXAPARIN 40MG/0.4ML SYRINGE (J1650 PER 10MG) SC SCH (08:42)
[2020-04-05] MEDS: NICOTINE 21MG/24HR 1 EA TRANSDERMAL TD SCH (08:42)
[2020-04-05] MEDS: HumaLOG INSULIN (NovoLOG) PER UNIT SC SCH ×4 (08:42→20:16)
[2020-04-05] MEDS: ASPIRIN 325 MG TAB PO SCH (08:43)
[2020-04-05] MEDS: hydroCHLOROthiazide 12.5 MG CAPSULE PO SCH (08:43)
[2020-04-05] MEDS: predniSONE 20 MG TAB PO SCH (08:43)
[2020-04-05] MEDS: SIMVASTATIN 40 MG TAB PO SCH (08:43)
[2020-04-05] MEDS: DOXYCYCLINE HYCLATE 100MG TABLET PO SCH ×2 (08:43→20:14)
[2020-04-05] MEDS: DOCUSATE SODIUM 100MG CAPSULE PO SCH ×2 (08:43→20:14)
[2020-04-05] MEDS: OMEPRAZOLE 20 MG CAP PO SCH (08:43)
[2020-04-05] MEDS: TERAZOSIN 5 MG CAP PO SCH ×2 (08:44→09:13)
--- NOTE | 2020-04-05 11:48 | IPNPDOC ---
Text Note Date of Service The patient was seen on 04/05/20. NOTE Subjective: Patient was seen and examined this morning at bedside. Tells me his feeling at the same as yesterday. Still having some shortness of breath. He denies any chest pain. He is getting his scheduled DuoNeb inhalers. There is no acute overnight events. Still requiring supplemental oxygen. Objective: Constitutional: Awake and alert, in no apparent distress ENT: Sclera are clear Respiratory: Lungs diminished breath sounds bilaterally today without wheezing appreciated. No respiratory distress. No use of accessory muscles. Saturating at 93% on 3 L of supplemental oxygen by nasal cannula. Cardiovascular: RRR S1 and S2 are normal, no murmur Gastrointestinal: Abdomen is soft, non distended, non tender, BS present. Musculoskeletal: No lower extremity edema. Right arm surgically absent from a traumatic injury. Neurologic: No focal neurological deficit. Mental Status: A&O x3, normal affect Skin: Warm, dry Assessment/plan: 69-year-old male history of COPD, diabetes, who presents to the emergency department with increasing shortness of breath over the past few days. Patient found to be in COPD exacerbation and rhinovirus positive likely trigger for the exacerbation. Patient will be admitted to the medical unit for acute on chronic respiratory failure due to underlying COPD for medical management. # Acute hypoxic respiratory failure 2/2 acute on chronic COPD exacerbation: Likely triggered by rhinovirus infection. Covid negative. Scheduled Duonebs. 5days prednisone 40mg 5 days. incentive spirometry. Doxycycline. Repeat walk test for home oxygen requirements prior to discharge. procalcitonin negative. Continue home inhalers. # DM: ISS. Frequent Accu-Cheks. Hypoglycemic precautions. Takes Lantus 22 units nightly. Levemir while inpatient. # Coronary artery disease: Aspirin and statin # Hypertension: Continue home meds. Monitor and titrate # GERD with Caceres's esophagus: Continue home PPI # LOUIS: May use own CPAP machine # BPH: Continue home medication # DVT prophylaxis: Lovenox A Yousef Hospitalist A Yousef Hospitalist VS,Fishbone, I+O VS, Fishbone, I+O Laboratory Tests 04/04/20 12:27 04/05/20 06:00 Vital Signs Date Time Temp Pulse Resp B/P (MAP) Pulse Ox O2 Delivery O2 Flow Rate FiO2 04/05/20 09:20 3.0 04/05/20 09:13 114/68 04/05/20 06:00 96.9 88 21 94 Nasal Cannula I&O- Last 24 Hours up to 6 AM 04/05/20 06:00 Intake Total 450 ml Output Total 0 ml Balance 450 ml FARHAT ALAS MD Apr 05, 2020 11:48
[2020-04-05 12:53] LABS: APPEARANCE, URINE CLEAR (CLEAR); BACTERIA, URINE AUTO NEGATIVE (NEGATIVE); BILIRUBIN, URINE AUTO NEGATIVE (NEGATIVE); BLOOD, URINE BLOOD NEGATIVE (NEGATIVE); COLOR, URINE YELLOW (YELLOW); GLUCOSE, URINE (UA) AUTO 3+ mg/dL (NEGATIVE); KETONE, URINE AUTO NEGATIVE (NEGATIVE); LEUKOCYTE ESTERASE, URINE AUTO NEGATIVE (NEGATIVE); NITRITE, URINE AUTO NEGATIVE (NEGATIVE); PROTEIN, URINE AUTO NEGATIVE (NEGATIVE); RBC, URINE AUTO 0 /HPF (0-3); SQUAMOUS EPITHELIAL CELL UR AU 0 /HPF (0-6); UROBILINOGEN, URINE AUTO 0.2 mg/dL (0.0-2.0); WBC, URINE AUTO 1 /HPF (0-3)
[2020-04-05 14:00] VITALS: BP 112/70
[2020-04-05] MEDS: oxyCODONE 5MG TAB PO PRN (20:14)
[2020-04-05] MEDS: LEVEMIR (INSULIN DETEMIR) 1 UNITS/0.01ML SC SCH (20:15)
[2020-04-05 22:00] VITALS: BP 113/69
[2020-04-06] MEDS: IPRATROPIUM 0.5MG/ALBUTEROL 2.5MG INH SOL UD 3ML (DUONEB) NEB SCH ×4 (01:19→20:24)
[2020-04-06 06:00] VITALS: BP 136/88
[2020-04-06 06:30] LABS: HEMATOCRIT 41.4 % (42.0-52.0); HEMOGLOBIN 13.5 g/dl (13.5-17.5); MEAN CORPUSCULAR HEMOGLOBIN 30.2 pg (27.0-33.0); MEAN CORPUSCULAR HGB CONC 32.6 g/dl (32.0-36.5); MEAN CORPUSCULAR VOLUME 92.6 fl (80.0-96.0); PLATELET COUNT, AUTOMATED 219 10^3/uL (150-450); RED BLOOD COUNT 4.47 10^6/uL (4.30-6.10)
[2020-04-06 06:54] LABS: BLOOD UREA NITROGEN 24 MG/DL (7-18); CALCIUM LEVEL 8.5 MG/DL (8.8-10.2); CARBON DIOXIDE LEVEL 29 MEQ/L (21-32); CHLORIDE LEVEL 103 MEQ/L (98-107); CREATININE FOR GFR 0.82 MG/DL (0.70-1.30); GLOMERULAR FILTRATION RATE > 60.0 (>49); GLUCOSE, FASTING 143 MG/DL (70-100); POTASSIUM SERUM 4.1 MEQ/L (3.5-5.1); SODIUM LEVEL 140 MEQ/L (136-145)
[2020-04-06] MEDS: TIOTROPIUM INHALER/CAPSULE (SPIRIVA) INH SCH (07:59)
[2020-04-06] MEDS: SYMBICORT 160/4.5MCG INHALER 6GM INH SCH ×2 (08:00→20:24)
[2020-04-06] MEDS: ENOXAPARIN 40MG/0.4ML SYRINGE (J1650 PER 10MG) SC SCH (08:43)
[2020-04-06] MEDS: NICOTINE 21MG/24HR 1 EA TRANSDERMAL TD SCH (08:44)
[2020-04-06] MEDS: HumaLOG INSULIN (NovoLOG) PER UNIT SC SCH ×4 (08:44→21:12)
[2020-04-06] MEDS: OMEPRAZOLE 20 MG CAP PO SCH (08:44)
[2020-04-06] MEDS: hydroCHLOROthiazide 12.5 MG CAPSULE PO SCH (08:44)
[2020-04-06] MEDS: DOCUSATE SODIUM 100MG CAPSULE PO SCH ×2 (08:44→21:09)
[2020-04-06] MEDS: ASPIRIN 325 MG TAB PO SCH (08:44)
[2020-04-06] MEDS: SIMVASTATIN 40 MG TAB PO SCH (08:44)
[2020-04-06] MEDS: predniSONE 20 MG TAB PO SCH (08:45)
[2020-04-06] MEDS: DOXYCYCLINE HYCLATE 100MG TABLET PO SCH ×2 (08:45→21:09)
[2020-04-06] MEDS: TERAZOSIN 5 MG CAP PO SCH (08:46)
[2020-04-06] MEDS ORDERED: SODIUM CHLORIDE NASAL 0.65% SPRAY BTL (OCEAN) PRN (10:20)
[2020-04-06 14:00] VITALS: BP 132/80
[2020-04-06] MEDS: guaiFENesin ER 600 MG TAB PO SCH ×2 (14:24→21:09)
--- NOTE | 2020-04-06 18:00 | IPNPDOC ---
Text Note Date of Service The patient was seen on 04/06/20. NOTE Subjective: Patient was asleep in bed when I entered the room. He was easily aroused. He continues to experience shortness of breath with exertion, but feels as though he might be making some headway. He does continue to require oxygen, but desires to attempt to wean down today, we will do so. He is complaining of a dry nose, but notices that it feels better when he is not using the oxygen. We will give him saline nasal spray to help moisten his nose. Also, he is typically on Ambien every night at home, he requests to have this home med continued starting tonight and he specifically requests that he not be given the oxycodone within 3 hours of the administration of Ambien. Objective: Constitutional: Awake and alert, in no apparent distress ENT: Sclera are clear Respiratory: Lung sounds diminished throughout. No wheezing or adventitious noises noted. No respiratory distress. No use of accessory muscles. Cardiovascular: RRR S1 and S2 are normal, no murmur Gastrointestinal: Abdomen is soft, non distended, non tender, BS present. Musculoskeletal: No lower extremity edema. Right arm surgically absent from a traumatic injury. Neurologic: No focal neurological deficit. Mental Status: A&O x3, normal affect Skin: Warm, dry Assessment/plan: 69-year-old male history of COPD, diabetes, who presents to the emergency department with increasing shortness of breath over the past few days. Patient found to be in COPD exacerbation and rhinovirus positive likely trigger for the exacerbation. Patient will be admitted to the medical unit for acute on chronic respiratory failure due to underlying COPD for medical management. # Acute hypoxic respiratory failure 2/2 acute on chronic COPD exacerbation: Likely triggered by rhinovirus infection. Covid negative. Scheduled Duonebs. Continue with prednisone, incentive spirometry, Doxycycline. Repeat walk test for home oxygen requirements prior to discharge. procalcitonin negative. Continue home inhalers. # DM: ISS. Frequent Accu-Cheks. Hypoglycemic precautions. Takes Lantus 22 units nightly. Levemir while inpatient. # Coronary artery disease: Aspirin and statin # Hypertension: Continue home meds. Monitor and titrate # GERD with Caceres's esophagus: Continue home PPI # LOUIS: May use own CPAP machine # BPH: Continue home medication # DVT prophylaxis: Lovenox Patient specifically requests that he be given a prescription for nicotine patches upon discharge. VS,Fishbone, I+O VS, Fishbone, I+O Laboratory Tests 04/06/20 05:59 Vital Signs Date Time Temp Pulse Resp B/P (MAP) Pulse Ox O2 Delivery O2 Flow Rate FiO2 04/06/20 14:00 97.8 98 22 132/80 (97) 92 Nasal Cannula 2.0 I&O- Last 24 Hours up to 6 AM 04/06/20 06:00 Intake Total 1470 ml Output Total 2150 ml Balance -680 ml EDGARD HOLM DO Apr 06, 2020 18:00
[2020-04-06] MEDS: zolPIDEM TARTRATE 5 MG TAB PO SCH (21:00)
[2020-04-06] MEDS: oxyCODONE 5MG TAB PO PRN (21:10)
[2020-04-06] MEDS: LEVEMIR (INSULIN DETEMIR) 1 UNITS/0.01ML SC SCH (21:12)
[2020-04-06 22:00] VITALS: BP 141/97
[2020-04-07] MEDS: IPRATROPIUM 0.5MG/ALBUTEROL 2.5MG INH SOL UD 3ML (DUONEB) NEB SCH ×4 (01:10→19:52)
[2020-04-07 06:00] VITALS: BP 132/76
[2020-04-07 06:50] LABS: HEMATOCRIT 41.6 % (42.0-52.0); HEMOGLOBIN 13.7 g/dl (13.5-17.5); MEAN CORPUSCULAR HEMOGLOBIN 30.4 pg (27.0-33.0); MEAN CORPUSCULAR HGB CONC 32.9 g/dl (32.0-36.5); MEAN CORPUSCULAR VOLUME 92.4 fl (80.0-96.0); PLATELET COUNT, AUTOMATED 228 10^3/uL (150-450); WHITE BLOOD COUNT 11.1 10^3/uL (4.0-10.0)
[2020-04-07 07:10] LABS: BLOOD UREA NITROGEN 21 MG/DL (7-18); CALCIUM LEVEL 8.8 MG/DL (8.8-10.2); CARBON DIOXIDE LEVEL 30 MEQ/L (21-32); CHLORIDE LEVEL 100 MEQ/L (98-107); CREATININE FOR GFR 0.87 MG/DL (0.70-1.30); GLOMERULAR FILTRATION RATE > 60.0 (>49); GLUCOSE, FASTING 222 MG/DL (70-100); SODIUM LEVEL 137 MEQ/L (136-145)
[2020-04-07] MEDS: TIOTROPIUM INHALER/CAPSULE (SPIRIVA) INH SCH (07:38)
[2020-04-07] MEDS: SYMBICORT 160/4.5MCG INHALER 6GM INH SCH ×2 (07:38→19:52)
[2020-04-07] MEDS: NICOTINE 21MG/24HR 1 EA TRANSDERMAL TD SCH (08:17)
[2020-04-07] MEDS: HumaLOG INSULIN (NovoLOG) PER UNIT SC SCH ×4 (08:17→20:20)
[2020-04-07] MEDS: ENOXAPARIN 40MG/0.4ML SYRINGE (J1650 PER 10MG) SC SCH (08:17)
[2020-04-07] MEDS: ASPIRIN 325 MG TAB PO SCH (08:18)
[2020-04-07] MEDS: predniSONE 20 MG TAB PO SCH (08:18)
[2020-04-07] MEDS: DOXYCYCLINE HYCLATE 100MG TABLET PO SCH (08:18)
[2020-04-07] MEDS: SIMVASTATIN 40 MG TAB PO SCH (08:18)
[2020-04-07] MEDS: hydroCHLOROthiazide 12.5 MG CAPSULE PO SCH (08:18)
[2020-04-07] MEDS: OMEPRAZOLE 20 MG CAP PO SCH (08:18)
[2020-04-07] MEDS: DOCUSATE SODIUM 100MG CAPSULE PO SCH ×2 (08:18→20:20)
[2020-04-07] MEDS: TERAZOSIN 5 MG CAP PO SCH (08:19)
[2020-04-07] MEDS: guaiFENesin ER 600 MG TAB PO SCH ×2 (08:19→20:18)
[2020-04-07] MEDS: oxyCODONE 5MG TAB PO PRN ×2 (08:32→20:21)
[2020-04-07 13:30] VITALS: BP 110/73
--- NOTE | 2020-04-07 17:12 | IPNPDOC ---
Text Note Date of Service The patient was seen on 04/07/20. NOTE Subjective: The patient reports that he is making slow progress, but nevertheless he feels as though he is moving in the right direction. He still is complaining of mucus in his chest, he is unable to expectorate it, but it seems to be rattling around more, perhaps a few more doses of Mucinex will help. He has been weaned down to just 1 L of oxygen today which is a significant improvement, however he is certainly not able to get off the oxygen today as his saturations continue to significantly drop with just about any sort of movement such as walking to the bathroom. Otherwise, he does not have any other acute complaints at this time and the remainder of his review of systems is negative. Objective: Constitutional: Awake and alert, in no apparent distress ENT: Sclera are clear Respiratory: Lung sounds diminished throughout. No wheezing or adventitious noises noted today. No respiratory distress. No use of accessory muscles. Cardiovascular: RRR S1 and S2 are normal, no murmur Gastrointestinal: Abdomen is soft, non distended, non tender, BS present. Musculoskeletal: No lower extremity edema. Right arm surgically absent from a traumatic injury. Neurologic: No focal neurological deficit. Mental Status: A&O x3, normal affect Skin: Warm, dry Assessment/plan: 69-year-old male history of COPD, diabetes, who presents to the emergency department with increasing shortness of breath over the past few days. Patient found to be in COPD exacerbation and rhinovirus positive likely trigger for the exacerbation. Patient will be admitted to the medical unit for acute on chronic respiratory failure due to underlying COPD for medical management. # Acute hypoxic respiratory failure 2/2 acute on chronic COPD exacerbation: Likely triggered by rhinovirus infection. Covid negative. procalcitonin negative. Scheduled Duonebs. Incentive spirometry. Repeat walk test for home oxygen requirements prior to discharge. Continue home inhalers. Will discontinue his doxycycline today, and reduce his prednisone from 40 mg daily to 20 mg daily. Continue attempting to wean oxygen. # DM: ISS. Frequent Accu-Cheks. Hypoglycemic precautions. Takes Lantus 22 units nightly while at home. Patient is have not been well controlled during his stay here, likely exacerbated by infection and administration of prednisone. Nevertheless, I'll increase his dose of Levemir to 20 units twice a day in the hopes that they will be better controlled, and we can wean him back down to his usual home dose based on his glucose levels. # Coronary artery disease: Aspirin and statin # Hypertension: Continue home meds. Monitor and titrate # GERD with Caceres's esophagus: Continue home PPI # LOUIS: May use own CPAP machine # BPH: Continue home medication # DVT prophylaxis: Lovenox As a side note: Patient specifically requests that he be given a prescription for nicotine patches upon discharge. VS,Fishbone, I+O VS, Fishbone, I+O Laboratory Tests 04/07/20 06:14 Vital Signs Date Time Temp Pulse Resp B/P (MAP) Pulse Ox O2 Delivery O2 Flow Rate FiO2 04/07/20 13:30 97.6 86 20 110/73 (85) 98 Nasal Cannula 1.0 I&O- Last 24 Hours up to 6 AM 04/07/20 06:00 Intake Total 1920 ml Output Total 3625 ml Balance -1705 ml EDGARD HOLM DO Apr 07, 2020 17:12
[2020-04-07 19:54] VITALS: O2SAT 94
[2020-04-07] MEDS: LEVEMIR (INSULIN DETEMIR) 1 UNITS/0.01ML SC SCH (20:20)
[2020-04-07 22:00] VITALS: BP 149/76
[2020-04-08] MEDS: IPRATROPIUM 0.5MG/ALBUTEROL 2.5MG INH SOL UD 3ML (DUONEB) NEB SCH ×4 (00:18→19:42)
[2020-04-08] MEDS: zolPIDEM TARTRATE 5 MG TAB PO SCH (00:33)
[2020-04-08 06:00] VITALS: BP 120/78
[2020-04-08 06:21] LABS: HEMATOCRIT 41.1 % (42.0-52.0); HEMOGLOBIN 13.6 g/dl (13.5-17.5); MEAN CORPUSCULAR HGB CONC 33.1 g/dl (32.0-36.5); MEAN CORPUSCULAR VOLUME 90.7 fl (80.0-96.0); PLATELET COUNT, AUTOMATED 234 10^3/uL (150-450); RED BLOOD COUNT 4.53 10^6/uL (4.30-6.10); WHITE BLOOD COUNT 10.3 10^3/uL (4.0-10.0)
[2020-04-08 06:47] LABS: BLOOD UREA NITROGEN 18 MG/DL (7-18); CALCIUM LEVEL 8.8 MG/DL (8.8-10.2); CARBON DIOXIDE LEVEL 32 MEQ/L (21-32); CHLORIDE LEVEL 100 MEQ/L (98-107); CREATININE FOR GFR 0.95 MG/DL (0.70-1.30); GLOMERULAR FILTRATION RATE > 60.0 (>49); GLUCOSE, FASTING 183 MG/DL (70-100); POTASSIUM SERUM 3.8 MEQ/L (3.5-5.1); SODIUM LEVEL 139 MEQ/L (136-145)
[2020-04-08] MEDS: SYMBICORT 160/4.5MCG INHALER 6GM INH SCH ×2 (07:28→19:42)
[2020-04-08] MEDS: TIOTROPIUM INHALER/CAPSULE (SPIRIVA) INH SCH (07:28)
[2020-04-08] MEDS: SIMVASTATIN 40 MG TAB PO SCH (08:36)
[2020-04-08] MEDS: guaiFENesin ER 600 MG TAB PO SCH ×2 (08:36→20:54)
[2020-04-08] MEDS: hydroCHLOROthiazide 12.5 MG CAPSULE PO SCH (08:36)
[2020-04-08] MEDS: OMEPRAZOLE 20 MG CAP PO SCH (08:36)
[2020-04-08] MEDS: DOCUSATE SODIUM 100MG CAPSULE PO SCH ×2 (08:36→20:53)
[2020-04-08] MEDS: ASPIRIN 325 MG TAB PO SCH (08:37)
[2020-04-08] MEDS: oxyCODONE 5MG TAB PO PRN ×2 (08:37→21:13)
[2020-04-08] MEDS: TERAZOSIN 5 MG CAP PO SCH (08:38)
[2020-04-08] MEDS: ENOXAPARIN 40MG/0.4ML SYRINGE (J1650 PER 10MG) SC SCH (08:39)
[2020-04-08] MEDS: NICOTINE 21MG/24HR 1 EA TRANSDERMAL TD SCH (08:39)
[2020-04-08] MEDS: HumaLOG INSULIN (NovoLOG) PER UNIT SC SCH ×4 (08:40→20:56)
[2020-04-08] MEDS: LEVEMIR (INSULIN DETEMIR) 1 UNITS/0.01ML SC SCH ×2 (08:40→20:55)
[2020-04-08] MEDS ORDERED: predniSONE 20 MG TAB PO SCH (09:00)
[2020-04-08 14:00] VITALS: BP 138/76
[2020-04-08] MEDS ORDERED: ONDANSETRON 4 MG ORAL DISINTEGRATING TAB SL PRN (20:10)
--- NOTE | 2020-04-08 20:40 | IPNPDOC ---
Text Note Date of Service The patient was seen on 04/08/20. NOTE Subjective: Patient initially reports that he is feeling significantly better, he has been weaned down to 0.5 L of oxygen at this time, and can go for periods of time without oxygen while at rest. He still feels as though he cannot catch his breath entirely, sometimes even at rest, he would like to see how the next 24 hours ago, and if he is feeling well, perhaps we will discuss discharge at that time. We have been weaning him down on his prednisone from 40 mg, to 20 mg to day, and I will reduce him again to 10 mg again tomorrow. He would like to be evaluated to determine if he would be able to get oxygen for at home prior to discharge. Objective: Constitutional: Awake and alert, in no apparent distress ENT: Sclera are clear Respiratory: Lung sounds diminished throughout, but sound clear. No respiratory distress. No use of accessory muscles. Cardiovascular: RRR S1 and S2 are normal, no murmur Gastrointestinal: Abdomen is soft, non distended, non tender, BS present. Musculoskeletal: No lower extremity edema. Right arm surgically absent from a traumatic injury. Neurologic: No focal neurological deficit. Mental Status: A&O x3, normal affect Skin: Warm, dry Assessment/plan: 69-year-old male history of COPD, diabetes, who presents to the emergency dep artment with increasing shortness of breath over the past few days. Patient found to be in COPD exacerbation and rhinovirus positive likely trigger for the exacerbation. Patient will be admitted to the medical unit for acute on chronic respiratory failure due to underlying COPD for medical management. # Acute hypoxic respiratory failure 2/2 acute on chronic COPD exacerbation: Likely triggered by rhinovirus infection. Covid negative. procalcitonin negative. Scheduled Duonebs. Incentive spirometry. Repeat walk test for home oxygen requirements prior to discharge. Continue home inhalers. Will discontinue his doxycycline today, and reduce his prednisone from 40 mg daily to 20 mg daily. Continue attempting to wean oxygen. # DM: ISS. Frequent Accu-Cheks. Hypoglycemic precautions. Takes Lantus 22 units nightly while at home. Patient is have not been well controlled during his stay here, likely exacerbated by infection and administration of prednisone. Will increase his Lantus once again today, and reduce his dose of prednisone as well today. # Coronary artery disease: Aspirin and statin # Hypertension: Continue home meds. Monitor and titrate # GERD with Caceres's esophagus: Continue home PPI # LOUIS: May use own CPAP machine # BPH: Continue home medication # DVT prophylaxis: Lovenox As a side note: Patient specifically requests that he be given a prescription for nicotine patches upon discharge, and would like to be evaluated to see if he would qualify for home oxygen. VS,Fishbone, I+O VS, Fishbone, I+O Laboratory Tests 04/08/20 05:35 Vital Signs Date Time Temp Pulse Resp B/P (MAP) Pulse Ox O2 Delivery O2 Flow Rate FiO2 04/08/20 14:00 98.0 101 20 138/76 (96) 94 Nasal Cannula 0.5 I&O- Last 24 Hours up to 6 AM 04/08/20 06:00 Intake Total 3510 ml Output Total 2925 ml Balance 585 ml EDGARD HOLM DO Apr 08, 2020 20:40
[2020-04-08 22:00] VITALS: BP 140/79
[2020-04-09] MEDS: zolPIDEM TARTRATE 5 MG TAB PO SCH
[2020-04-09] MEDS: IPRATROPIUM 0.5MG/ALBUTEROL 2.5MG INH SOL UD 3ML (DUONEB) NEB SCH ×3 (00:49→13:25)
[2020-04-09 06:00] VITALS: BP 131/82
[2020-04-09 06:22] LABS: HEMOGLOBIN 14.7 g/dl (13.5-17.5); MEAN CORPUSCULAR HEMOGLOBIN 29.9 pg (27.0-33.0); MEAN CORPUSCULAR HGB CONC 33.4 g/dl (32.0-36.5); MEAN CORPUSCULAR VOLUME 89.6 fl (80.0-96.0); PLATELET COUNT, AUTOMATED 253 10^3/uL (150-450); RED BLOOD COUNT 4.91 10^6/uL (4.30-6.10); WHITE BLOOD COUNT 12.5 10^3/uL (4.0-10.0)
[2020-04-09 06:48] LABS: BLOOD UREA NITROGEN 20 MG/DL (7-18); CALCIUM LEVEL 8.9 MG/DL (8.8-10.2); CARBON DIOXIDE LEVEL 32 MEQ/L (21-32); CHLORIDE LEVEL 98 MEQ/L (98-107); CREATININE FOR GFR 1.03 MG/DL (0.70-1.30); GLOMERULAR FILTRATION RATE > 60.0 (>49); GLUCOSE, FASTING 181 MG/DL (70-100); POTASSIUM SERUM 3.7 MEQ/L (3.5-5.1); SODIUM LEVEL 135 MEQ/L (136-145)
[2020-04-09] MEDS: TIOTROPIUM INHALER/CAPSULE (SPIRIVA) INH SCH (07:36)
[2020-04-09] MEDS: SYMBICORT 160/4.5MCG INHALER 6GM INH SCH (07:36)
[2020-04-09] MEDS: NICOTINE 21MG/24HR 1 EA TRANSDERMAL TD SCH (08:33)
[2020-04-09] MEDS: LEVEMIR (INSULIN DETEMIR) 1 UNITS/0.01ML SC SCH (08:34)
[2020-04-09] MEDS: HumaLOG INSULIN (NovoLOG) PER UNIT SC SCH ×2 (08:34→12:33)
[2020-04-09] MEDS: ASPIRIN 325 MG TAB PO SCH (08:35)
[2020-04-09] MEDS: ENOXAPARIN 40MG/0.4ML SYRINGE (J1650 PER 10MG) SC SCH (08:35)
[2020-04-09 08:36] VITALS: BP 135/82
[2020-04-09] MEDS: TERAZOSIN 5 MG CAP PO SCH (08:36)
[2020-04-09] MEDS: hydroCHLOROthiazide 12.5 MG CAPSULE PO SCH (08:36)
[2020-04-09] MEDS: OMEPRAZOLE 20 MG CAP PO SCH (08:37)
[2020-04-09] MEDS: SIMVASTATIN 40 MG TAB PO SCH (08:37)
[2020-04-09] MEDS: DOCUSATE SODIUM 100MG CAPSULE PO SCH (08:37)
[2020-04-09] MEDS: guaiFENesin ER 600 MG TAB PO SCH (08:37)
[2020-04-09] MEDS: oxyCODONE 5MG TAB PO PRN (08:44)
[2020-04-09] MEDS ORDERED: predniSONE 10 MG TAB PO SCH (09:00)
--- NOTE | 2020-04-09 12:34 | DSES ---
DISCHARGE SUMMARY DATE OF ADMISSION: 04/04/2020 DATE OF DISCHARGE: 04/09/2020 PRINCIPAL DIAGNOSIS: Acute hypoxic respiratory failure secondary to acute on chronic COPD exacerbation probably precipitated by rhinovirus. SECONDARY DIAGNOSES: 1. Type 2 diabetes. 2. Coronary artery disease. 3. Hypertension. 4. GERD. 5. LOUIS. 6. BPH. 7. 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 HISTORY: Patient admitted with shortness of breath felt to be COPD exacerbation. Details in history and physical from admission. HOSPITAL COURSE: Admitted to a medical bed and treated with intravenous and oral steroids, supplemental oxygen, and nebulized bronchodilator. Did not require extended antibiotic treatment. I picked him on the day of discharge. He was eager to go home. He was not having any shortness of breath. He did desaturate with ambulation. O2 saturations per nurse's notes. Did qualify for home oxygen. PHYSICAL EXAMINATION: On exam, he is resting comfortably. No JVD. Lungs entirely clear. Heart regular rhythm. Abdomen soft, nontender. No peripheral edema. LABORATORY DATA: Labs today: White count is 12.5 on steroids, hemoglobin 14.7, platelets 253. Sodium 135, potassium 3.7, BUN 20, creatinine 1.0, glucose 181. COVID test was negative. Respiratory panel was negative for COVID, positive for rhinovirus. Procalcitonin was low. DISPOSITION: Discharged home in improved and stable condition. FOLLOW UP: Follow up with his primary care provider who is the [facility] in one week. DISCHARGE INSTRUCTIONS: Activity as tolerated. No added salt diet to continue. I suspect he will not need prolonged supplemental oxygen. He can be tested at the [facility] at his follow up appointment and discontinue it as necessary. MEDICINES ON DISCHARGE: His medicines on discharge will continue to be: 1. Albuterol inhaler two puffs q.i.d. p.r.n. 2. NESINA 25 mg daily. 3. Aspirin 325 mg daily. 4. Symbicort 160-4.5 two puffs b.i.d. 5. Vitamin D. 6. Vitamin B12. 7. Colace as needed. 8. Hydrochlorothiazide 12.5 mg daily. 9. Lantus insulin 22 units at bedtime. 10. Sliding scale insulin per coverage scale. 11. Lisinopril 20 mg daily. 12. Loperamide as needed. 13. Metformin 500 mg at lunch, 500 mg with dinner. 14. Omeprazole 20 mg daily. 15. Oxycodone 5 mg q.6 hours p.r.n. 16. Prednisone taper which he has at home. 17. Simvastatin 80 mg daily. 18. Terazosin 5 mg daily. 19. Spiriva one inhalation daily. 20. Ambien 10 mg q.h.s. PENDING LABORATORY DATA: At the time of this dictation, there are no pending labs. MTDD
== END 2020-04-09 16:38 | disposition home or self-care (01) | DRG 189 ==
LOC: M ED 11:35 → EDBD 11:35 → M ED INP 11:36 → OBSVTOIN 16:19 → M MSPAV 17:06
PROVIDERS: ADMIT Family Medicine; ATTEND Family Medicine
DX: J96.01 Acute respiratory failure with hypoxia (principal); J44.1 Chronic obstructive pulmonary disease with (acute) exacerbation; B34.8 Other viral infections of unspecified site; E11.9 Type 2 diabetes mellitus without complications; G47.33 Obstructive sleep apnea (adult) (pediatric); N40.0 Benign prostatic hyperplasia without lower urinary tract symptoms; I10 Essential (primary) hypertension; I25.10 Atherosclerotic heart disease of native coronary artery without angina pectoris; Z79.899 Other long term (current) drug therapy; Z79.82 Long term (current) use of aspirin; Z79.4 Long term (current) use of insulin; K22.70 Barrett's esophagus without dysplasia; F17.200 Nicotine dependence, unspecified, uncomplicated; Z89.221 Acquired absence of right upper limb above elbow

== ENCOUNTER → 2020-12-18 | Outpatient (CLI) | payer MEDICARE, OTHER ==
[~2020-12-18] MED LIST changes: +COLA100C5 PO; +D31000TA2 PO; +DEXT4TAB15 PO; +INSUH10VL SC; +LANTINJ4 SC; +LOPE1CAP5 PO; +METF-877 PO; +METF500T13 PO; +NESI25TA PO; +OXYC-517 PO; -PANTOPRAZOLE 40MG TAB (PROTONIX) PO SCH; +PRED10TA2 PO; +TRUS1SOL OU; +VITA500T40 PO; +ZITHTAB2 PO
== END ==
LOC: M LABSMTC 11:30
PROVIDERS: ATTEND Pediatrics
DX: Z20.828 Contact with and (suspected) exposure to other viral communicable diseases (principal)
CPT/HCPCS: C9803; U0003

== ENCOUNTER → 2021-07-08 | Outpatient (CLI) | payer OTHER ==
[~2021-07-08] MED LIST changes: -D31000TA2 PO; +VITA100093 PO
== END ==
LOC: M RAD 09:01
PROVIDERS: ATTEND Family Medicine
DX: R10.9 Unspecified abdominal pain (principal); R91.8 Other nonspecific abnormal finding of lung field; J84.10 Pulmonary fibrosis, unspecified; J43.9 Emphysema, unspecified; Z98.0 Intestinal bypass and anastomosis status; Z90.49 Acquired absence of other specified parts of digestive tract

== ENCOUNTER 2022-06-23 06:19 | Day surgery (SDC) | payer MEDICAID, MEDICARE, OTHER ==
[~2022-06-23] VITALS: Ht 170.2 cm; Wt 77.9 kg
[~2022-06-23 06:19] MED LIST changes: +AMIT10TA7 PO; +ARTIDRO4 OU; +CYCLOPENTOLATE 1% OPHTH SOLN 2ML BTL OS SCH; +FLUT1BLS8 INH; +INSU100I6 SC; +JARD1TAB3 PO; +MELO15TA28 PO; +OFLOXACIN 0.3 % (OCUFLOX) OPTH SOL 5ML OS SCH; +PHENYLEPHRINE 2.5% OPHTH SOL 2ML OS SCH; -POLYOPD OU; +PROPARACAINE 0.5% OPHTH SOL 15ML OS ONE; +SIMV-254 PO; +TROPICAMIDE 1% OPHTH SOLN 15ML OS SCH
[2022-06-23] MEDS ORDERED: LIDOCAINE 1% SDV 5ML VIAL As Ordered ONE (06:44)
[2022-06-23] MEDS ORDERED: BSS IRR 500ML/OMIDRIA 4ML IRR BAG (OR ONLY) As Ordered ONE (06:44)
[2022-06-23] MEDS ORDERED: CEFUROXIME 1MG/0.1ML INTRACAMERAL INJ As Ordered ONE (06:45)
[2022-06-23 09:20] VITALS: BP 163/100
== END 2022-06-23 09:39 | disposition home or self-care (01) ==
LOC: M SDC 06:19
PROVIDERS: ATTEND Ophthalmology
DX: H25.12 Age-related nuclear cataract, left eye (principal); I10 Essential (primary) hypertension; E78.5 Hyperlipidemia, unspecified; E11.9 Type 2 diabetes mellitus without complications; J44.9 Chronic obstructive pulmonary disease, unspecified; G47.30 Sleep apnea, unspecified; F17.210 Nicotine dependence, cigarettes, uncomplicated; Z79.899 Other long term (current) drug therapy
CPT/HCPCS: 66984; J0697; J1097; V2632

== ENCOUNTER → 2022-09-21 | Outpatient (CLI) | payer MEDICARE, MEDICAID ==
[~2022-09-21] MED LIST changes: -CYCLOPENTOLATE 1% OPHTH SOLN 2ML BTL OS SCH; -OFLOXACIN 0.3 % (OCUFLOX) OPTH SOL 5ML OS SCH; -PHENYLEPHRINE 2.5% OPHTH SOL 2ML OS SCH; -PROPARACAINE 0.5% OPHTH SOL 15ML OS ONE; -TROPICAMIDE 1% OPHTH SOLN 15ML OS SCH
== END ==
LOC: M RAD 09:16
PROVIDERS: ATTEND Family Medicine
DX: R09.89 Other specified symptoms and signs involving the circulatory and respiratory systems (principal)

== ENCOUNTER → 2022-10-02 | Outpatient (CLI) | payer MEDICARE, MEDICAID ==
[2022-10-02 11:49] LABS: BLOOD UREA NITROGEN 26 MG/DL (9-23); CREATININE FOR GFR 0.96 MG/DL (0.70-1.30); GLOMERULAR FILTRATION RATE > 60.0 (>42)
== END ==
LOC: M LAB 10:22
PROVIDERS: ATTEND Family Medicine
DX: E11.9 Type 2 diabetes mellitus without complications (principal)

== ENCOUNTER → 2022-10-14 | Outpatient (CLI) | payer MEDICARE, MEDICAID ==
[~2022-10-14] MED LIST changes: +ISOVUE-370 76% 100ML VIAL As Ordered ONE
== END ==
LOC: M RAD 14:20
PROVIDERS: ATTEND Family Medicine
DX: I70.202 Unspecified atherosclerosis of native arteries of extremities, left leg (principal); R68.89 Other general symptoms and signs
CPT/HCPCS: 75635; Q9967

== ENCOUNTER → 2023-07-23 | Outpatient (CLI) | payer MEDICARE, OTHER, MEDICAID ==
[~2023-07-23] MED LIST changes: -DEXT4TAB15 PO; +DEXT4TAB9 PO; -ISOVUE-370 76% 100ML VIAL As Ordered ONE
== END ==
LOC: M RAD 10:29
PROVIDERS: ATTEND Family Medicine
DX: D17.1 Benign lipomatous neoplasm of skin and subcutaneous tissue of trunk (principal)

== ENCOUNTER → 2024-04-18 | Outpatient (CLI) | payer OTHER, MEDICARE, MEDICAID ==
[~2024-04-18] MED LIST changes: +BUDE180A2 INH; -BUDE180INH INH; +GLIP10TA15 PO; -GLIP10TA6 PO
== END ==
LOC: M RAD 13:04
PROVIDERS: ATTEND Internal Medicine Pulmonary Disease
DX: R91.8 Other nonspecific abnormal finding of lung field (principal); I70.0 Atherosclerosis of aorta; I25.10 Atherosclerotic heart disease of native coronary artery without angina pectoris; J98.11 Atelectasis

== ENCOUNTER → 2024-05-03 | Outpatient (CLI) | payer MEDICARE, MEDICAID ==
[2024-05-03 10:52] LABS: BASO # 0.1 10^3/uL (0.0-0.2); BASO % 0.6 % (0.0-1.0); EOS # 0.1 10^3/uL (0.0-0.5); EOS % 0.6 % (0.0-3.0); HEMOGLOBIN 14.9 g/dl (13.5-17.5); LYMPH # 1.2 10^3/uL (1.5-5.0); LYMPH % 10.9 % (24.0-44.0); MEAN CORPUSCULAR HEMOGLOBIN 30.9 pg (27.0-33.0); MEAN CORPUSCULAR HGB CONC 32.4 g/dl (32.0-36.5); MEAN CORPUSCULAR VOLUME 95.4 fl (80.0-96.0); MONO # 0.7 10^3/uL (0.0-0.8); MONO % 6.1 % (2.0-8.0); NEUTROPHILS # 8.4 10^3/uL (1.5-8.5); NEUTROPHILS % 77.5 % (36.0-66.0); PLATELET COUNT, AUTOMATED 213 10^3/uL (150-450); RED BLOOD COUNT 4.82 10^6/uL (4.30-6.10); WHITE BLOOD COUNT 10.9 10^3/uL (4.0-10.0)
[2024-05-03 11:13] LABS: HEMOGLOBIN A1c 7.6 % (4.0-6.0)
[2024-05-03 11:18] LABS: CREATININE, URINE 93.6 MG/DL; MAU/CREAT RATIO 11.7 MCG/MG (0.0-30.0)
[2024-05-03 11:21] LABS: ALBUMIN 3.6 G/DL (3.2-5.2); ALKALINE PHOSPHATASE 54 U/L (40-129); ALT/SGPT 22 U/L (7.0-40); AST/SGOT 11 U/L (<34); BILIRUBIN,TOTAL 0.5 MG/DL (0.3-1.2); BLOOD UREA NITROGEN 18 MG/DL (9-23); CALCIUM LEVEL 8.9 MG/DL (8.3-10.6); CARBON DIOXIDE LEVEL 29 MMOL/L (20-31); CHLORIDE LEVEL 105 MMOL/L (98-107); CHOLESTEROL LEVEL 151 MG/DL (<200); CHOLESTEROL RISK RATIO 3.21 (<5); CREATININE FOR GFR 0.81 MG/DL (0.70-1.30); GLOMERULAR FILTRATION RATE > 60.0 (>42); GLUCOSE, FASTING 113 MG/DL (74-106); LDL CHOLESTEROL 57.4 MG/DL (<100); POTASSIUM SERUM 3.9 MMOL/L (3.5-5.1); SODIUM LEVEL 142 MMOL/L (136-145); TOTAL PROTEIN 6.3 G/DL (5.7-8.2); TRIGLYCERIDES LEVEL 233 MG/DL (<150)
== END ==
LOC: M LAB 09:38
PROVIDERS: ATTEND Family Medicine
DX: Z00.00 Encounter for general adult medical examination without abnormal findings (principal); E11.69 Type 2 diabetes mellitus with other specified complication; G89.29 Other chronic pain

== ENCOUNTER → 2024-10-18 | Outpatient (REF) | payer OTHER, MEDICARE ==
[~2024-10-18] MED LIST changes: +ACET32TAB PO; +ALBU2.5V10 INH; -AMBI10TA PO; +AMIT10TA11 PO; -AMIT10TA7 PO; +ASPI81TA26 PO; -BRIM1OPD OU; +BRIM5DRO25 OU; +CYAN500T14 PO; +DICL100G10 TOP; +FINA5TAB2 PO; +FLON1SPR; +GABA-1635 PO; +GUAI200T6 PO; +INSUHUMDS SC; +INSULANT SC; +LISI40TA10 PO; -LISI40TA4 PO; +MAGN200T PO; +OXYC5CAP56 PO; +POTA99CA2 PO; +PRED10PA2 PO; +SEMA0.257 SQ; +SILD100T PO; +TAMS1CAP17 PO; +ZINC50TA37 PO; +ZOLP-533 PO
[2024-10-18 18:36] LABS: CALCIUM LEVEL 9.9 MG/DL (8.3-10.6); CARBON DIOXIDE LEVEL 29.0 MMOL/L (20-31); CHLORIDE LEVEL 102.0 MMOL/L (98-107); CREATININE FOR GFR 0.95 MG/DL (0.70-1.30); GLOMERULAR FILTRATION RATE 84.0 (>42); MAGNESIUM LEVEL 2.1 MG/DL (1.8-2.4); POTASSIUM SERUM 4.2 MMOL/L (3.5-5.1); SODIUM LEVEL 144.0 MMOL/L (136-145)
[2024-10-18 19:32] LABS: ESTIMATED AVERAGE GLUCOSE 160.0 MG/DL (60-110)
== END ==
LOC: M SFHCLERA 11:24
PROVIDERS: ATTEND Family Medicine
DX: R25.2 Cramp and spasm (principal); E11.9 Type 2 diabetes mellitus without complications

== ENCOUNTER → 2024-10-27 | Outpatient (CLI) | payer OTHER, MEDICARE, MEDICAID | LOC: M PLAIMG 09:48 | PROVIDERS: ATTEND Internal Medicine Pulmonary Disease | DX: R91.8 Other nonspecific abnormal finding of lung field (principal); I31.39 Other pericardial effusion (noninflammatory); J43.2 Centrilobular emphysema ==

== ENCOUNTER → 2024-12-05 | Outpatient (CLI) | payer OTHER, MEDICARE, MEDICAID | LOC: M PLARAD 12:54 | PROVIDERS: ATTEND Internal Medicine Pulmonary Disease | DX: R91.8 Other nonspecific abnormal finding of lung field (principal) | CPT/HCPCS: 78815; A9552 ==

== ENCOUNTER → 2024-12-26 | Outpatient (CLI) | payer MEDICARE, MEDICAID | LOC: M PLALAB 15:01 | PROVIDERS: ATTEND Family Medicine | DX: Z51.81 Encounter for therapeutic drug level monitoring (principal); Z79.891 Long term (current) use of opiate analgesic | CPT/HCPCS: 36415; 80307; G0480 ==

== ENCOUNTER 2025-01-23 13:11 | Inpatient (IN) | payer OTHER, MEDICARE, MEDICAID ==
[~2025-01-23] VITALS: Ht 172.7 cm; Wt 73.0 kg
[~2025-01-23 13:11] MED LIST changes: -FLON1SPR; +FLON1SPR NARES
[2025-01-23] MEDS: IPRATROPIUM 0.5 MG/ALBUTEROL 2.5 MG INH SOL UD 3 ML NEB PRN (13:43)
[2025-01-23 14:01] LABS: BASO # 0.0 10^3/uL (0.0-0.2); BASO % 0.3 % (0.0-1.0); EOS # 0.0 10^3/uL (0.0-0.5); EOS % 0.1 % (0.0-3.0); LYMPH # 0.5 10^3/uL (1.5-5.0); LYMPH % 3.4 % (24.0-44.0); MONO # 0.6 10^3/uL (0.0-0.8); MONO % 4.3 % (2.0-8.0); NEUTROPHILS # 12.8 10^3/uL (1.5-8.5); NEUTROPHILS % 90.1 % (36.0-66.0); PLATELET COUNT, AUTOMATED 225 10^3/uL (150-450)
[2025-01-23 14:17] LABS: ABG BASE EXCESS 3.4 (-2.0-2.0); ABG HCO3 28.3 MMOL/L (22.0-26.0); ABG O2 SATURATION 97.4 % (95.0-99.0); ABG PARTIAL PRESSURE CO2 44.0 mmHg (35.0-45.0); ABG PARTIAL PRESSURE O2 99.7 mmHg (75.0-100.0); ABG STANDARD HCO3 27.5 MMOL/L. (22.0-26.0); ABG TOTAL CO2 29.6 MMOL/L (23.0-31.0); ABG pH (ARTERIAL) 7.426 UNITS (7.350-7.450)
[2025-01-23 14:23] LABS: INR 0.99
[2025-01-23 14:26] LABS: CK-MB VALUE MASS 3.1 NG/ML (<3.6)
[2025-01-23 14:29] LABS: ALT/SGPT 19 U/L (7.0-40); AST/SGOT 15 U/L (<34); CALCIUM LEVEL 9.1 MG/DL (8.3-10.6); CARBON DIOXIDE LEVEL 28 MMOL/L (20-31); CHLORIDE LEVEL 100 MMOL/L (98-107); CREATININE FOR GFR 0.80 MG/DL (0.70-1.30); GLOMERULAR FILTRATION RATE > 90.0 (>42); POTASSIUM SERUM 4.3 MMOL/L (3.5-5.1); SODIUM LEVEL 139 MMOL/L (136-145)
[2025-01-23 14:34] LABS: CPK CREATINE PHOSPHOKINASE 47 U/L (46-171); MB/CK RELATIVE INDEX 6.59 (< OR =4)
[2025-01-23] MEDS ORDERED: ISOVUE-370 76% 100 ML VIAL As Ordered ONE (15:11)
[2025-01-23 15:17] LABS: CK-MB VALUE MASS 3.0 NG/ML (<3.6)
[2025-01-23 15:19] LABS: CPK CREATINE PHOSPHOKINASE 48.0 U/L (46-171); MB/CK RELATIVE INDEX 6.25 (< OR =4)
[2025-01-23] MEDS ORDERED: ALBUTEROL SULFATE 2.5 MG/0.5 ML INH CONCENTRATE NEB SOLN NEB PRN (17:30)
[2025-01-23] MEDS ORDERED: GLUCAGON INJ 1 MG VIAL SC PRN (17:30)
[2025-01-23] MEDS ORDERED: DEXTROSE 50% 50 ML SYRINGE IV PRN (17:30)
[2025-01-23] MEDS ORDERED: GLUCOSE 4 GM CHEW PO PRN (17:30)
[2025-01-23] MEDS: INSULIN LISPRO (NovoLOG) PER UNIT SC SCH ×2 (17:30→22:39)
[2025-01-23] MEDS ORDERED: LISI20TA33 PO (18:17)
[2025-01-23] MEDS ORDERED: ACET650T3 PO (18:17)
[2025-01-23] MEDS ORDERED: BUPR150T12 PO (18:17)
[2025-01-23] MEDS ORDERED: XALA0.007 OU (18:17)
[2025-01-23] MEDS ORDERED: HOME MED LIST COMPLETE! XX SCH (18:20)
[2025-01-23] MEDS: IPRATROPIUM 0.5 MG/ALBUTEROL 2.5 MG INH SOL UD 3 ML NEB SCH (20:00)
[2025-01-23 20:30] VITALS: BP 116/77; TEMP 97.4; O2SAT 94
[2025-01-23] MEDS ORDERED: DOCUSATE SODIUM 100 MG CAPSULE PO PRN (21:55)
[2025-01-23] MEDS: LanTUS (INSULIN GLARGINE INJ) 1 UNITS/0.01 ML SC SCH (22:38)
[2025-01-23] MEDS: DOXYCYCLINE HYCLATE 100 MG TABLET PO SCH (22:40)
[2025-01-23] MEDS: ACETAMINOPHEN 650 MG ER TAB PO SCH (22:40)
[2025-01-23] MEDS: BENZONATATE 100 MG CAPSULE PO SCH (22:40)
[2025-01-23] MEDS: PANTOPRAZOLE 40MG TAB PO SCH (22:40)
[2025-01-23] MEDS: GABAPENTIN 300 MG CAP PO SCH (22:47)
[2025-01-23] MEDS: LATANOPROST 0.005% OPHTH SOLN 2.5 ML OU SCH (23:25)
[2025-01-23] MEDS: AMITRIPTYLINE 10 MG TABLET PO SCH (23:25)
[2025-01-24 04:11] VITALS: BP 168/89; TEMP 97; O2SAT 92
[2025-01-24 07:04] LABS: PLATELET COUNT, AUTOMATED 251 10^3/uL (150-450)
[2025-01-24 07:30] LABS: CALCIUM LEVEL 9.4 MG/DL (8.3-10.6); CARBON DIOXIDE LEVEL 30 MMOL/L (20-31); CHLORIDE LEVEL 98 MMOL/L (98-107); CREATININE FOR GFR 0.79 MG/DL (0.70-1.30); GLOMERULAR FILTRATION RATE > 90.0 (>42); POTASSIUM SERUM 4.3 MMOL/L (3.5-5.1); SODIUM LEVEL 138 MMOL/L (136-145)
[2025-01-24] MEDS: buPROPion **XL** 150 MG TABLET PO SCH (08:56)
[2025-01-24] MEDS: ENOXAPARIN 40 MG/0.4 ML SYRINGE (J1650 PER 10MG) SC SCH (08:56)
[2025-01-24] MEDS: ASPIRIN 81 MG ENTERIC TABLET PO SCH (08:56)
[2025-01-24] MEDS: GABAPENTIN 400 MG CAP PO SCH (08:57)
[2025-01-24] MEDS: TAMSULOSIN 0.4 MG CAP PO SCH (08:57)
[2025-01-24] MEDS: SIMVASTATIN 40 MG TAB PO SCH (08:57)
[2025-01-24] MEDS: FINASTERIDE 5 MG TAB PO SCH (09:00)
[2025-01-24] MEDS: hydroCHLOROthiazide 25 MG TAB PO SCH (09:03)
[2025-01-24] MEDS: FLUTICASONE PROPIONATE 0.05% NASAL SPRAY 16 GM NARES SCH (09:15)
[2025-01-24 12:30] VITALS: BP 137/63; TEMP 98; O2SAT 95
[2025-01-24 19:57] VITALS: BP 125/85; TEMP 97.6; O2SAT 96
[2025-01-25 03:07] VITALS: BP 128/71; TEMP 97; O2SAT 94
[2025-01-25] MEDS: guaiFENesin DM LIQ 10ML UD PO PRN (08:17)
[2025-01-25 11:49] VITALS: BP 147/72; TEMP 98.4; O2SAT 95
[2025-01-25 13:45] VITALS: O2SAT 95
[2025-01-25] MEDS: METOPROLOL TART 25 MG TABLET PO ONE (20:24)
[2025-01-25 20:59] VITALS: BP 148/82; TEMP 97.9; O2SAT 96
[2025-01-26 04:34] VITALS: BP 152/80; TEMP 97.8; O2SAT 93
[2025-01-26 11:54] VITALS: BP 150/76; TEMP 97.6; O2SAT 95
[2025-01-26] MEDS ORDERED: VARIBAR NECTAR 40% w/v 240ML SUSP BTL As Ordered ONE (12:00)
[2025-01-26] MEDS ORDERED: E-Z-PAQUE 96% w/w SUSP 176 GM BTL As Ordered ONE (12:00)
[2025-01-26] MEDS ORDERED: VARIBAR PUDDING 40% w/v 230ML TUBE As Ordered ONE (12:00)
[2025-01-26] MEDS ORDERED: BARIUM SULFATE 700 MG TABLET As Ordered ONE (12:00)
[2025-01-26 20:08] VITALS: BP 122/62; TEMP 97.2; O2SAT 99
[2025-01-27 03:57] VITALS: BP 134/75; TEMP 97.8; O2SAT 94
[2025-01-27 11:39] VITALS: BP 142/72; TEMP 97.5; O2SAT 94
[2025-01-27 20:38] VITALS: BP 136/73; TEMP 97.7; O2SAT 95
[2025-01-28 06:38] VITALS: BP 130/63; TEMP 97.8; O2SAT 95
[2025-01-28 06:49] LABS: BASO # 0.1 10^3/uL (0.0-0.2); BASO % 0.7 % (0.0-1.0); EOS # 0.0 10^3/uL (0.0-0.5); EOS % 0.2 % (0.0-3.0); LYMPH # 1.1 10^3/uL (1.5-5.0); LYMPH % 9.9 % (24.0-44.0); MONO # 0.8 10^3/uL (0.0-0.8); MONO % 7.7 % (2.0-8.0); NEUTROPHILS # 8.2 10^3/uL (1.5-8.5); NEUTROPHILS % 76.5 % (36.0-66.0); PLATELET COUNT, AUTOMATED 221 10^3/uL (150-450)
[2025-01-28 07:14] LABS: CALCIUM LEVEL 8.6 MG/DL (8.3-10.6); CARBON DIOXIDE LEVEL 36 MMOL/L (20-31); CHLORIDE LEVEL 97 MMOL/L (98-107); CREATININE FOR GFR 0.83 MG/DL (0.70-1.30); GLOMERULAR FILTRATION RATE > 90.0 (>42); POTASSIUM SERUM 3.6 MMOL/L (3.5-5.1); SODIUM LEVEL 141 MMOL/L (136-145)
[2025-01-28 12:00] VITALS: BP 144/62; TEMP 97.2; O2SAT 95
[2025-01-28] MEDS: AUGMENTIN 875 MG TAB PO SCH (12:17)
[2025-01-28 19:46] VITALS: BP 121/71; TEMP 97.6; O2SAT 93
[2025-01-29] VITALS (7 sets, daily range): BP systolic 116–140; BP diastolic 68–77; TEMP 97.2–97.8; O2SAT 80–95
[2025-01-30 04:36] VITALS: BP 144/72; TEMP 97.6; O2SAT 95
[2025-01-30 07:50] VITALS: O2SAT 98
[2025-01-30 08:26] VITALS: BP 144/72
[2025-01-30] MEDS: predniSONE 20 MG TAB PO SCH (08:27)
[2025-01-30] MEDS ORDERED: AMOX875T2 PO (10:27)
[2025-01-30] MEDS ORDERED: PRED20TA PO (10:27)
[2025-01-30 12:02] VITALS: BP 124/69; TEMP 97.6; O2SAT 90
== END 2025-01-30 15:36 | disposition home health service (06) | DRG 190 ==
LOC: EDBD 13:11 → M ED 13:11 → M ED INP 17:19 → M MSPAV 20:18
PROVIDERS: ADMIT Student in an Organized Health Care Education/Training Program; ATTEND Student in an Organized Health Care Education/Training Program
PROC: B246ZZZ Ultrasonography of Right and Left Heart (ICD-10-PCS; principal; 2025-01-26)
DX: J44.1 Chronic obstructive pulmonary disease with (acute) exacerbation (principal); J69.0 Pneumonitis due to inhalation of food and vomit; J96.11 Chronic respiratory failure with hypoxia; I10 Essential (primary) hypertension; E78.5 Hyperlipidemia, unspecified; E11.42 Type 2 diabetes mellitus with diabetic polyneuropathy; G47.33 Obstructive sleep apnea (adult) (pediatric); K21.9 Gastro-esophageal reflux disease without esophagitis; E11.65 Type 2 diabetes mellitus with hyperglycemia; N40.0 Benign prostatic hyperplasia without lower urinary tract symptoms; M54.9 Dorsalgia, unspecified; G89.29 Other chronic pain; B34.8 Other viral infections of unspecified site; Z99.81 Dependence on supplemental oxygen; Z79.82 Long term (current) use of aspirin; Z79.4 Long term (current) use of insulin; Z79.84 Long term (current) use of oral hypoglycemic drugs; Z79.891 Long term (current) use of opiate analgesic; Z79.899 Other long term (current) drug therapy; R13.10 Dysphagia, unspecified; Z79.85 Long-term (current) use of injectable non-insulin antidiabetic drugs